=== PATIENT | male | born 1975 | race Caucasian/White ===

== ENCOUNTER 2019-04-18 01:22 | Emergency (ER) | payer MEDICAID ==
[~2019-04-18] VITALS: Ht 157 cm; Wt 75.0 kg
[~2019-04-18 01:22] MED LIST: DIVA125T2 PO
[2019-04-18] MEDS ORDERED: ASPIRIN 81 MG CHEW (CHILDREN'S ASA) PO ONE (01:45)
[2019-04-18] MEDS ORDERED: NITROGLYCERIN 0.4 MG SL TABS BTL 25'S SL PRN (01:45)
[2019-04-18 01:50] LABS: BASOPHILS % (AUTO) 0 % (0-10); EOSINOPHILS # (AUTO) 0.2 10^3/uL (0.0-0.3); EOSINOPHILS % (AUTO) 2 % (0-10); HEMATOCRIT 46 % (40-54); HEMOGLOBIN 15.5 G/DL (13.3-17.7); LYMPHOCYTES # (AUTO) 1.7 X 10^3 (1.0-4.0); LYMPHOCYTES % (AUTO) 18 % (12-44); MEAN CORPUSCULAR HEMOGLOBIN 30 PG (25-34); MEAN CORPUSCULAR HGB CONC 34 G/DL (32-36); MEAN CORPUSCULAR VOLUME 90 FL (80-99); MEAN PLATELET VOLUME 8.8 FL (7.4-10.4); MONOCYTES # (AUTO) 0.6 X 10^3 (0.0-1.0); MONOCYTES % (AUTO) 7 % (0-12); NEUTROPHILS % (AUTO) 73 % (42-75); PLATELET COUNT 287 10^3/uL (130-400); RED CELL DISTRIBUTION WIDTH 14.7 % (10.0-14.5); WHITE BLOOD COUNT 9.5 10^3/uL (4.3-11.0)
[2019-04-18] MEDS ORDERED: NS IV 1000 ML 1,000 ML IV ONE (01:56)
[2019-04-18 02:06] LABS: INR 0.9 (0.8-1.4); PROTHROMBIN TIME PATIENT 12.8 SEC (12.2-14.7)
[2019-04-18 02:09] LABS: BILIRUBIN,URINE NEGATIVE (NEGATIVE); CLARITY,URINE CLEAR; COLOR,URINE YELLOW; GLUCOSE, URINE (UA) NEGATIVE (NEGATIVE); KETONES,URINE NEGATIVE (NEGATIVE); LEUKOCYTE ESTERASE ,URINE NEGATIVE (NEGATIVE); NITRITE,URINE NEGATIVE (NEGATIVE); PH,URINE 6 (5-9); PROTEIN,URINE 2+ (NEGATIVE)
[2019-04-18 02:17] LABS: ALANINE AMINOTRANSFERASE 18 U/L (0-55); ALBUMIN 4.3 GM/DL (3.2-4.5); ALKALINE PHOSPHATASE 86 U/L (40-136); AMYLASE 67 U/L (25-125); BILIRUBIN,TOTAL 0.4 MG/DL (0.1-1.0); BUN/CREATININE RATIO 16; CALCIUM 9.8 MG/DL (8.5-10.1); CARBON DIOXIDE 17 MMOL/L (21-32); CHLORIDE 103 MMOL/L (98-107); CREATINE KINASE 90 U/L (30-200); CREATININE SERUM 1.51 MG/DL (0.60-1.30); GFR ESTIMATED 50; GLUCOSE 119 MG/DL (70-105); LIPASE 78 U/L (8-78); MAGNESIUM 1.8 MG/DL (1.6-2.4); SODIUM 134 MMOL/L (135-145); TOTAL PROTEIN 7.6 GM/DL (6.4-8.2)
[2019-04-18 02:22] LABS: BACTERIA,URINE NEGATIVE /HPF; SQUAMOUS EPITHELIAL CELL,UR 0-2 /HPF
[2019-04-18 02:24] LABS: AMPHETAMINE SCREEN, URINE NEGATIVE (NEGATIVE); BARBITURATE SCREEN URINE NEGATIVE (NEGATIVE); BENZODIAZEPINES SCREEN URINE NEGATIVE (NEGATIVE); CANNABINOID SCREEN, URINE NEGATIVE (NEGATIVE); COCAINE SCREEN URINE NEGATIVE (NEGATIVE); METHADONE STAT NEGATIVE (NEGATIVE); METHAMPHETAMINE SCREEN URINE S NEGATIVE (NEGATIVE); OPIATE SCREEN URINE NEGATIVE (NEGATIVE); OXYCODONE STAT NEGATIVE (NEGATIVE); PROPOXYPHENE STAT NEGATIVE (NEGATIVE); TRICYCLIC ANTIDEPRESSANTS SCRE NEGATIVE (NEGATIVE)
[2019-04-18 02:25] LABS: CREATINE KINASE MB 3.3 NG/ML (<6.6)
[2019-04-18] MEDS ORDERED: FUROSEMIDE 40 MG/4 ML INJ (LASIX) IVP ONE (02:45)
[2019-04-18] MEDS ORDERED: ENOXAPARIN 80 MG/0.8 ML (LOVENOX) SYR SC ONE (02:45)
[2019-04-18] MEDS ORDERED: fentaNYL INJECTION 100 MCG/2 ML AMP IVP STA (02:50)
[2019-04-18] MEDS ORDERED: meTOproloL SUCCINATE 50 MG (TOPROL XL) TAB PO SCH (03:00)
[2019-04-18 03:55] VITALS: BP 107/75
--- NOTE | 2019-04-18 03:56 | NUR ---
Pt report called to KARINA Loco @ [facility]. Upon arrival to room #3004.
--- NOTE | 2019-04-18 07:05 | Diagnostic Imaging Report ---
INDICATION: Chest pain. TECHNIQUE: Single view chest 2:13 AM. CORRELATION STUDY: None FINDINGS: Cardiac enlargement is present with a rounded configuration. Vasculature mildly prominent. The lungs are clear with no consolidating infiltrate. There is no significant effusion or pneumothorax. IMPRESSION: 1. Cardiac enlargement. Given configuration, possibility of underlying cardiomyopathy and/or pericardial effusion not excluded. If further assessment is desired, echocardiography would be recommended. Called to Dr. Christensen at 7:02 a.m. by cvb. Dictated by: Dictated on workstation # [id number]
--- NOTE | 2019-04-18 07:41 | ED Chest Pain ---
General Chief Complaint: Chest Pain Stated Complaint: CP Nursing Triage Note: Pt amb to room #7 with c/o lt sided chest discomfort radiating to lt axillary region. Pt reports discomfort is accompanied by SOA. Reports onset of symptoms throughout afternoon of 04/17/19. Pt reports to have allegedly experienced a "heart attack" @ [facility] in January 2019, but signed out AMA after prompting for surgical intervention. Nursing Sepsis Screen: No Definite Risk Source: patient History of Present Illness Date Seen by Provider: Apr 18, 2019 Time Seen by Provider: 01:28 Initial Comments PT ARRIVES VIA POV FROM HOME C/O MID CHEST PAIN ALL DAY--BEGAN AROUND NOON, WHILE SITTING RATES PAIN 6/10 NOW. NO RADIATION OF PAIN PAIN IS WORSE WITH ANY EXERTION, BUT DOES NOT GO AWAY C/O SHORTNESS OF BREATH AND COUGH WITH MINIMAL EXERTION NO SWELLING IN LEGS/ FEET OR PAIN IN CALVES NO PALPITATIONS NO SWEATS NO NAUSEA/VOMITING NO SYNCOPE HAS NOT TAKEN ANYTHING FOR PAIN STATES HE HAD AN WI ( ? NSTEMI ? )IN JANUARY AND WENT TO [place] PT STATES HE LEFT AMA, AND REFUSED TO HAVE CATH OR SURGERY "BECAUSE I DIDN'T HAVE ANY FAMILY THERE" PT HAS NOT FOLLOWED UP WITH ANYONE SINCE THEN, EITHER. 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 PCP: ADILIA Allergies and Home Medications Allergies Coded Allergies: No Known Drug Allergies (Unverified , 04/18/19) Patient Home Medication List Home Medication List Reviewed: No (PT IS NOT TAKING ANY MEDICATIONS) Review of Systems Review of Systems Constitutional: no symptoms reported; No diaphoresis, No dizziness EENTM: No Symptoms Reported Respiratory: See HPI, Cough, Orthopnea, Shortness of Air, SOA With Exertion Cardiovascular: See HPI, Chest Pain; Denies Edema, Denies Irregular Heart Rate, Denies Lightheadedness, Denies Palpitations, Denies Syncope Gastrointestinal: No Symptoms Reported; Denies Abdominal Pain, Denies Nausea, Denies Vomiting Genitourinary: No Symptoms Reported Musculoskeletal: no symptoms reported; No back pain Skin: no symptoms reported Psychiatric/Neurological: No Symptoms Reported, Other (HX OF SEIZURES--NO MEDICATIONS ( DEPAKOTE ) FOR 6 MONTHS) Endocrine: No Symptoms Reported Hematologic/Lymphatic: No Symptoms Reported Past Avfuwul-Wxbgmg-Pyqiif Hx Patient Social History Alcohol Use: Past History (HISTORY OF ABUSE--CLAIMS NONE FOR 12 YEARS, PER PT ON 04/18/19) Recreational Drug Use: Yes (HX OF METH, THC. DENIES IV USE. CLAIMS "NO USE FOR YEARS" PER PT 04/18/19) Drug of Choice: HX: METHAMPHETAMINES, THC. DENIES IV USE OR USE "FOR YEARS" PER PT 04/18/19 Smoking Status: Current Everyday Smoker (1 PPD) Type Used: Cigarettes (1 PPD) 2nd Hand Smoke Exposure: Yes Recent Foreign Travel: No Contact w/Someone Who Travel: No Recent Infectious Disease Expo: No Immunizations Up To Date Tetanus Booster (TDap): More than 5yrs Past Medical History Surgeries: Yes Appendectomy Respiratory: No Cardiac: Yes (STATES HE HAD WI 01/2019--SEEN AT [place], THEN REFUSED CARDIAC CATH OR SURGERY AND LEFT AMA. DID NOT FOLLOW UP WITH ANYONE. ) Heart Attack Neurological: Yes (NO SEIZURE MEDICATIONS ( DEPAKOTE ) FOR 6 MONTHS, PER PT ON 04/18/19) Seizure Disorder Genitourinary: No Gastrointestinal: No Musculoskeletal: No Endocrine: No HEENT: Yes (POOR DENTITION) Cancer: No Psychosocial: No (POLYSUBSTANCE ABUSE HISTORY) Integumentary: No Blood Disorders: No Family Medical History No Pertinent Family Hx Physical Exam Vital Signs Vital Signs - First Documented 04/18/19 01:26 Temp 37.0 Pulse 121 Resp 26 B/P (MAP) 112/87 (95) Pulse Ox 100 O2 Delivery Room Air Capillary Refill : Less Than 3 Seconds Height, Weight, BMI Height: 5'" Weight: 140lbs. oz. 63.593156ka; 30.00 BMI Method:Stated General Appearance: No Apparent Distress, WD/WN, Other (UNKEMPT, REEKS OF CIGARETTES, SOMEWHAT ANXIOUS. ) Neck: Full Range of Motion, Normal Inspection, Non Tender, Supple; No Carotid Bruit, No JVD Respiratory: Chest Non Tender, Normal Breath Sounds, No Accessory Muscle Use, No Respiratory Distress Cardiovascular: No Edema, No JVD, No Murmur, Normal Peripheral Pulses, Tachycardia (120'S) Gastrointestinal: Normal Bowel Sounds, No Organomegaly, No Pulsatile Mass, Non Tender, Soft Extremity: Normal Capillary Refill, Normal Inspection, Normal Range of Motion, Non Tender, No Calf Tenderness, No Pedal Edema Neurologic/Psychiatric: Alert, Oriented x3, No Motor/Sensory Deficits, preventive medicine officer II- XII Norm as Tested Skin: Normal Color, Warm/Dry, Tattoos/Piercings (MULTPLE TATTOOS) Progress/Results/Core Measures Results/Orders Lab Results Laboratory Tests Test 04/18/19 01:40 04/18/19 02:00 Range/Units White Blood Count 9.5 4.3-11.0 10^3/uL Red Blood Count 5.12 4.35-5.85 10^6/uL Hemoglobin 15.5 13.3-17.7 G/DL Hematocrit 46 40-54 % Mean Corpuscular Volume 90 80-99 FL Mean Corpuscular Hemoglobin 30 25-34 PG Mean Corpuscular Hemoglobin Concent 34 32-36 G/DL Red Cell Distribution Width 14.7 H 10.0-14.5 % Platelet Count 287 130-400 10^3/uL Mean Platelet Volume 8.8 7.4-10.4 FL Neutrophils (%) (Auto) 73 42-75 % Lymphocytes (%) (Auto) 18 12-44 % Monocytes (%) (Auto) 7 0-12 % Eosinophils (%) (Auto) 2 0-10 % Basophils (%) (Auto) 0 0-10 % Neutrophils # (Auto) 7.0 1.8-7.8 X 10^3 Lymphocytes # (Auto) 1.7 1.0-4.0 X 10^3 Monocytes # (Auto) 0.6 0.0-1.0 X 10^3 Eosinophils # (Auto) 0.2 0.0-0.3 10^3/uL Basophils # (Auto) 0.0 0.0-0.1 10^3/uL Prothrombin Time 12.8 12.2-14.7 SEC INR Comment 0.9 0.8-1.4 Activated Partial Thromboplast Time 28 24-35 SEC Sodium Level 134 L 135-145 MMOL/L Potassium Level 5.0 3.6-5.0 MMOL/L Chloride Level 103 98-107 MMOL/L Carbon Dioxide Level 17 L 21-32 MMOL/L Anion Gap 14 5-14 MMOL/L Blood Urea Nitrogen 24 H 7-18 MG/DL Creatinine 1.51 H 0.60-1.30 MG/DL Estimat Glomerular Filtration Rate 50 BUN/Creatinine Ratio 16 Glucose Level 119 H 70-105 MG/DL Calcium Level 9.8 8.5-10.1 MG/DL Corrected Calcium 9.6 8.5-10.1 MG/DL Magnesium Level 1.8 1.6-2.4 MG/DL Total Bilirubin 0.4 0.1-1.0 MG/DL Aspartate Amino Transf (AST/SGOT) 16 5-34 U/L Alanine Aminotransferase (ALT/SGPT) 18 0-55 U/L Alkaline Phosphatase 86 40-136 U/L Total Creatine Kinase 90 30-200 U/L Creatine Kinase MB 3.3 <6.6 NG/ML Myoglobin 57.4 10.0-92.0 NG/ML Troponin I 0.123 H <0.028 NG/ML B-Type Natriuretic Peptide 1387.5 H <100.0 PG/ML Total Protein 7.6 6.4-8.2 GM/DL Albumin 4.3 3.2-4.5 GM/DL Amylase Level 67 25-125 U/L Lipase 78 8-78 U/L Serum Alcohol < 10 <10 MG/DL Urine Color YELLOW Urine Clarity CLEAR Urine pH 6 5-9 Urine Specific [place] 1.010 L 1.016-1.022 Urine Protein 2+ H NEGATIVE Urine Glucose (UA) NEGATIVE NEGATIVE Urine Ketones NEGATIVE NEGATIVE Urine Nitrite NEGATIVE NEGATIVE Urine Bilirubin NEGATIVE NEGATIVE Urine Urobilinogen NORMAL NORMAL MG/DL Urine Leukocyte Esterase NEGATIVE NEGATIVE Urine RBC (Auto) NEGATIVE NEGATIVE Urine RBC NONE /HPF Urine WBC NONE /HPF Urine Squamous Epithelial Cells 0-2 /HPF Urine Crystals NONE /LPF Urine Bacteria NEGATIVE /HPF Urine Casts NONE /LPF Urine Mucus NEGATIVE /LPF Urine Culture Indicated NO Urine Opiates Screen NEGATIVE NEGATIVE Urine Oxycodone Screen NEGATIVE NEGATIVE Urine Methadone Screen NEGATIVE NEGATIVE Urine Propoxyphene Screen NEGATIVE NEGATIVE Urine Barbiturates Screen NEGATIVE NEGATIVE Ur Tricyclic Antidepressants Screen NEGATIVE NEGATIVE Urine Phencyclidine Screen NEGATIVE NEGATIVE Urine Amphetamines Screen NEGATIVE NEGATIVE Urine Methamphetamines Screen NEGATIVE NEGATIVE Urine Benzodiazepines Screen NEGATIVE NEGATIVE Urine Cocaine Screen NEGATIVE NEGATIVE Urine Cannabinoids Screen NEGATIVE NEGATIVE My Orders Orders - OSCAR LOYA DO Ed Iv/Invasive Line Start (04/18/19 01:34) Ekg Tracing (04/18/19:34) O2 (04/18/19 01:34) Monitor-Rhythm Ecg Trace Only (04/18/19:34) Cbc With Automated Diff (04/18/19:34) Magnesium (04/18/19:34) Chest 1 View, Ap/Pa Only (04/18/19 01:34) Cardiac Profile 1 (04/18/19:34) Comprehensive Metabolic Panel (04/18/19:34) Myoglobin Serum (04/18/19:34) Protime With Inr (04/18/19:34) Partial Thromboplastin Time (04/18/19:34) O2 (04/18/19 01:34) Ed Iv/Invasive Line Start (04/18/19:34) Creatine Kinase (04/18/19:34) Creatine Kinase Mb (04/18/19:34) Lipase (04/18/19:34) Amylase (04/18/19:34) BNP (04/18/19:34) Nitroglycerin 0.4 Mg Btl 25's (Nitrostat (04/18/19 01:45) Aspirin Chewable Tablet (Baby Aspirin Ch (04/18/19 01:45) Drug Screen Stat (Urine) (04/18/19:34) Ua Culture If Indicated (04/18/19:34) Alcohol (04/18/19 01:40) Ed Iv/Invasive Line Start (04/18/19 01:56) Ns Iv 1000 Ml (Sodium Chloride 0.9%) (04/18/19 01:56) Furosemide Injection (Lasix Injection) (04/18/19 02:45) Enoxaparin Injection (Lovenox Injection) (04/18/19 02:45) Metoprolol Succinate (Xl) Tab (Toprol Xl (04/18/19 03:00) Fentanyl Injection (Sublimaze Injection (04/18/19 02:50) Medications Given in ED Current Medications Medications Dose Ordered Sig/Sarah Route Start Time Stop Time Status Last Admin Dose Admin Aspirin 324 mg ONCE ONCE PO 04/18/19 01:45 04/18/19 01:46 DC 04/18/19 01:54 324 MG Enoxaparin Sodium 80 mg ONCE ONCE SC 04/18/19 02:45 04/18/19 02:46 DC 04/18/19 03:11 80 MG Furosemide 80 mg ONCE ONCE IVP 04/18/19 02:45 04/18/19 02:46 DC 04/18/19 03:11 80 MG Sodium Chloride 1,000 ml @ 0 mls/hr Q0M ONCE IV 04/18/19 01:56 04/18/19 01:57 DC 04/18/19 02:05 0 MLS/HR Vital Signs/I&O 04/18/19 04/18/19 04/18/19 01:26 01:26 03:55 Temp 37.0 37.0 Pulse 121 118 Resp 26 20 B/P (MAP) 112/87 (95) 107/75 (95) Pulse Ox 100 99 O2 Delivery Room Air Room Air Room Air Blood Pressure Mean: 95 Progress Progress Note : Progress Note MODERATE RELIEF WITH NTG. COMPLETE RELIEF WITH MORPHINE NO DETERIORATION IN PT'S CONDITION DURING ER STAY Initial ECG Impression Date: Apr 18, 2019 Initial ECG Impression Time: 01:27 Initial ECG Rate: 119 Initial ECG Rhythm: S.Tach (LBBB, BI-ATRIAL ) Initial ECG Impression: Nonspecific Changes Diagnostic Imaging Comments CXR--MODERATE CHF, PENDING RADIOLOGIST Reviewed: Reviewed by In Departure Communication (Admissions) 0250--CALLED [facility], PT PREFERENCE/ REQUESTS TO GO THERE, PAGING HOSPITALIST 0259--SPOKE WITH DR. MENON, ACCEPTS PT FOR ADMIT/TRANSFER Impression Primary Impression: NSTEMI (non-ST elevated myocardial infarction) Additional Impression: CHF (congestive heart failure) Disposition: 02 XFER SHT-TRM HOSP Condition: Improved Transfer Transfer Reason: Patient preference Time Spoke to Accepting Phy: 02:59 Transfer Facility: [facility] Method of Transfer: EMS Departure-Patient Inst. Referrals: [facility] (PCP) Primary Care Physician OSCAR LOYA DO Apr 18, 2019 07:41
[2019-05-12] MEDS ORDERED: FURO20TA4 PO (17:50)
[2019-05-12] MEDS ORDERED: MIDO5TAB3 PO (17:50)
[2019-05-12] MEDS ORDERED: LISI2.5T PO (17:50)
[2019-05-12] MEDS ORDERED: ATOR40TA70 PO (17:50)
[2019-05-12] MEDS ORDERED: METO-333 PO (17:57)
[2019-05-13] MEDS ORDERED: GUAI100L13 PO (09:16)
[2019-05-13] MEDS ORDERED: ASPI-999 PO (13:01)
[2019-05-15] MEDS ORDERED: MAGN400T8 PO (21:04)
== END 2019-04-18 03:55 | disposition short-term general hospital (02) ==
LOC: EDUNIT# 01:22 → ER 01:23
DX: I21.4 Non-ST elevation (NSTEMI) myocardial infarction (principal); I50.9 Heart failure, unspecified; G40.909 Epilepsy, unspecified, not intractable, without status epilepticus; F17.210 Nicotine dependence, cigarettes, uncomplicated; Z90.49 Acquired absence of other specified parts of digestive tract
CPT/HCPCS: 36415; 71045; 80053; 80306; 80320; 81000; 82150; 82550; 82553; 83690; 83735; 83874; 83880; 84484; 85025; 85610; 85730; 93005; 93041; 96372; 96374; 96375

== ENCOUNTER 2019-05-12 12:44 | Observation (INO) | payer MEDICAID ==
[~2019-05-12] VITALS: Ht 157.4 cm; Wt 71.6 kg
[2019-05-12] VITALS (8 sets, daily range): BP systolic 88–104; BP diastolic 51–83
[2019-05-12] MEDS ORDERED: ASPIRIN 81 MG CHEW (CHILDREN'S ASA) ONE (13:06)
[2019-05-12] MEDS ORDERED: ASPIRIN 81 MG CHEW (CHILDREN'S ASA) PO ONE (13:15)
[2019-05-12 13:27] LABS: BASOPHILS % (AUTO) 0 % (0-10); EOSINOPHILS # (AUTO) 0.1 10^3/uL (0.0-0.3); EOSINOPHILS % (AUTO) 1 % (0-10); HEMATOCRIT 43 % (40-54); HEMOGLOBIN 14.2 G/DL (13.3-17.7); LYMPHOCYTES # (AUTO) 0.8 X 10^3 (1.0-4.0); LYMPHOCYTES % (AUTO) 15 % (12-44); MEAN CORPUSCULAR HEMOGLOBIN 30 PG (25-34); MEAN CORPUSCULAR HGB CONC 33 G/DL (32-36); MEAN CORPUSCULAR VOLUME 90 FL (80-99); MONOCYTES # (AUTO) 1.1 X 10^3 (0.0-1.0); MONOCYTES % (AUTO) 22 % (0-12); NEUTROPHILS # (AUTO) 3.2 X 10^3 (1.8-7.8); NEUTROPHILS % (AUTO) 62 % (42-75); PLATELET COUNT 335 10^3/uL (130-400); RED CELL DISTRIBUTION WIDTH 15.5 % (10.0-14.5); WHITE BLOOD COUNT 5.2 10^3/uL (4.3-11.0)
[2019-05-12] MEDS ORDERED: NS IV 1000 ML 1,000 ML IV SCH ×2 (13:30→15:15)
[2019-05-12 13:33] LABS: INR 0.9 (0.8-1.4)
--- NOTE | 2019-05-12 13:34 | Diagnostic Imaging Report ---
EXAM: CHEST 1 VIEW, AP/PA ONLY INDICATION: Chest pain. COMPARISON: 04/18/2019. FINDINGS: Low lung volumes accentuate the cardiomegaly. Mild atelectasis or infiltrate in the medial right lung base. No pleural effusion or pneumothorax. IMPRESSION: Low lung volumes accentuate the cardiomegaly which is likely stable. There is also persistent atelectasis or infiltrate in the medial right lung base. Dictated by: Dictated on workstation # [id number]
[2019-05-12 13:41] LABS: ALBUMIN 4.4 GM/DL (3.2-4.5); BILIRUBIN,TOTAL 0.3 MG/DL (0.1-1.0); CALCIUM 9.2 MG/DL (8.5-10.1); CREATININE SERUM 1.69 MG/DL (0.60-1.30); MAGNESIUM 2.2 MG/DL (1.6-2.4); POTASSIUM 4.6 MMOL/L (3.6-5.0); TOTAL PROTEIN 7.8 GM/DL (6.4-8.2)
[2019-05-12 13:42] LABS: BILIRUBIN,URINE NEGATIVE (NEGATIVE); CLARITY,URINE CLEAR; COLOR,URINE YELLOW; GLUCOSE, URINE (UA) NEGATIVE (NEGATIVE); KETONES,URINE NEGATIVE (NEGATIVE); LEUKOCYTE ESTERASE ,URINE NEGATIVE (NEGATIVE); NITRITE,URINE NEGATIVE (NEGATIVE); PH,URINE 5.5 (5-9); PROTEIN,URINE 2+ (NEGATIVE)
--- NOTE | 2019-05-12 13:46 | ED Cardiac General ---
History of Present Illness General Chief Complaint: Chest Pain Stated Complaint: CP Nursing Triage Note: Pt c/o fever, vomiting, cough, body aches, and chest pain that began yesterday. Pt reports symptoms have worsened today. Pt afebrile at time of assessment. Pt report recently "coding at [facility]." Source: patient Exam Limitations: no limitations History of Present Illness Date Seen by Provider: May 12, 2019 Time Seen by Provider: 15:00 Initial Comments To ER with reports of left-sided chest pain worse with movement. This began last night and has been constant since then. No fever no chills no cough. He has congestive heart failure with ejection fraction of 15% he states. He is currently wearing a life vest prescribed by Dr. Gomes matrix drier tender in [place]. However he cannot afford keep going to [place] and would like to establish with cardiology here in [place] since they live in [place]. He states that he had a myocardial infarction at [facility] April 17, intubated on the , had a heart catheter subsequently and states there was no blockage, no stents were placed, he is scheduled to have AICD placement with Dr. Gomes the future. Previous history of methamphetamine use. Timing/Duration: constant Severity: moderate Activities at Onset: none Prior CP/Workup: cardiac cath NTG SL KEYPUNCHER: No ASA po KEYPUNCHER: No Associated Systoms: Chest Pain Allergies and Home Medications Allergies Coded Allergies: No Known Drug Allergies (Unverified , 04/18/19) Patient Home Medication List Home Medication List Reviewed: Yes Review of Systems Review of Systems Constitutional: see HPI EENTM: No Symptoms Reported Respiratory: See HPI; Denies Orthopnea Cardiovascular: See HPI, Chest Pain Gastrointestinal: No Symptoms Reported Genitourinary: No Symptoms Reported Musculoskeletal: no symptoms reported Skin: no symptoms reported Psychiatric/Neurological: No Symptoms Reported Endocrine: No Symptoms Reported Past Fajaljw-Uilxie-Oogfbe Hx Patient Social History Alcohol Use: Past History Recreational Drug Use: No Drug of Choice: HX: METHAMPHETAMINES, THC. DENIES IV USE OR USE "FOR YEARS" PER PT 05/12/19 Smoking Status: Former Smoker Type Used: Cigarettes 2nd Hand Smoke Exposure: Yes Recent Foreign Travel: No Contact w/Someone Who Travel: No Recent Infectious Disease Expo: No Recent Hopitalizations: Yes (04/18 "coded at [facility]") Immunizations Up To Date Tetanus Booster (TDap): More than 5yrs Past Medical History Surgeries: Yes Appendectomy Respiratory: No Cardiac: Yes Heart Attack Neurological: Yes (NO SEIZURE MEDICATIONS ( DEPAKOTE ) FOR 6 MONTHS, PER PT ON 04/18/19) Seizure Disorder Genitourinary: No Gastrointestinal: No Musculoskeletal: No Endocrine: No HEENT: Yes (POOR DENTITION) Cancer: No Psychosocial: No (POLYSUBSTANCE ABUSE HISTORY) Integumentary: No Blood Disorders: No Family Medical History No Pertinent Family Hx Physical Exam Vital Signs Vital Signs - First Documented 05/12/19 12:44 Temp 36.8 Pulse 92 Resp 14 B/P (MAP) 102/67 (79) Pulse Ox 98 O2 Delivery Room Air Capillary Refill : Less Than 3 Seconds Height, Weight, BMI Height: 5'" Weight: 140lbs. oz. 63.412982zd; 28.00 BMI Method:Stated General Appearance: No Apparent Distress, WD/WN, Other (alert and oriented mentating well, no distress) HEENT: PERRL/EOMI, Normal ENT Inspection Neck: Full Range of Motion, Normal Inspection Respiratory: No Accessory Muscle Use, No Respiratory Distress Cardiovascular: Regular Rate, Rhythm, Normal Peripheral Pulses Gastrointestinal: Normal Bowel Sounds, Non Tender, Soft Extremity: Normal Capillary Refill, Normal Inspection Neurologic/Psychiatric: Alert, Oriented x3 Skin: Normal Color, Warm/Dry Focused Exam Lactate Level 05/12/19 13:15: Lactic Acid Level 2.18*H Lactic Acid Level Laboratory Tests Test 05/12/19 13:15 Lactic Acid Level 2.18 MMOL/L (0.50-2.00) *H Progress/Results/Core Measures Results/Orders Lab Results Laboratory Tests Test 05/12/19 12:55 05/12/19 13:15 05/12/19 13:30 Range/Units White Blood Count 5.2 4.3-11.0 10^3/uL Red Blood Count 4.76 4.35-5.85 10^6/uL Hemoglobin 14.2 13.3-17.7 G/DL Hematocrit 43 40-54 % Mean Corpuscular Volume 90 80-99 FL Mean Corpuscular Hemoglobin 30 25-34 PG Mean Corpuscular Hemoglobin Concent 33 32-36 G/DL Red Cell Distribution Width 15.5 H 10.0-14.5 % Platelet Count 335 130-400 10^3/uL Mean Platelet Volume 9.0 7.4-10.4 FL Neutrophils (%) (Auto) 62 42-75 % Lymphocytes (%) (Auto) 15 12-44 % Monocytes (%) (Auto) 22 H 0-12 % Eosinophils (%) (Auto) 1 0-10 % Basophils (%) (Auto) 0 0-10 % Neutrophils # (Auto) 3.2 1.8-7.8 X 10^3 Lymphocytes # (Auto) 0.8 L 1.0-4.0 X 10^3 Monocytes # (Auto) 1.1 H 0.0-1.0 X 10^3 Eosinophils # (Auto) 0.1 0.0-0.3 10^3/uL Basophils # (Auto) 0.0 0.0-0.1 10^3/uL Neutrophils % (Manual) 57 % Lymphocytes % (Manual) 14 % Monocytes % (Manual) 18 % Eosinophils % (Manual) 1 % Band Neutrophils 10 % Helmet Cells SLIGHT Prothrombin Time 13.0 12.2-14.7 SEC INR Comment 0.9 0.8-1.4 Activated Partial Thromboplast Time 29 24-35 SEC Sodium Level 133 L 135-145 MMOL/L Potassium Level 4.6 3.6-5.0 MMOL/L Chloride Level 102 98-107 MMOL/L Carbon Dioxide Level 20 L 21-32 MMOL/L Anion Gap 11 5-14 MMOL/L Blood Urea Nitrogen 23 H 7-18 MG/DL Creatinine 1.69 H 0.60-1.30 MG/DL Estimat Glomerular Filtration Rate 44 BUN/Creatinine Ratio 14 Glucose Level 106 H 70-105 MG/DL Calcium Level 9.2 8.5-10.1 MG/DL Corrected Calcium 8.9 8.5-10.1 MG/DL Magnesium Level 2.2 1.6-2.4 MG/DL Total Bilirubin 0.3 0.1-1.0 MG/DL Aspartate Amino Transf (AST/SGOT) 29 5-34 U/L Alanine Aminotransferase (ALT/SGPT) 22 0-55 U/L Alkaline Phosphatase 81 40-136 U/L Myoglobin 34.3 10.0-92.0 NG/ML Troponin I 0.052 H <0.028 NG/ML B-Type Natriuretic Peptide 940.7 H <100.0 PG/ML Total Protein 7.8 6.4-8.2 GM/DL Albumin 4.4 3.2-4.5 GM/DL Lactic Acid Level 2.18 *H 0.50-2.00 MMOL/L Urine Color YELLOW Urine Clarity CLEAR Urine pH 5.5 5-9 Urine Specific [place] >=1.030 1.016-1.022 Urine Protein 2+ H NEGATIVE Urine Glucose (UA) NEGATIVE NEGATIVE Urine Ketones NEGATIVE NEGATIVE Urine Nitrite NEGATIVE NEGATIVE Urine Bilirubin NEGATIVE NEGATIVE Urine Urobilinogen 0.2 < = 1.0 MG/DL Urine Leukocyte Esterase NEGATIVE NEGATIVE Urine RBC (Auto) NEGATIVE NEGATIVE Urine RBC NONE /HPF Urine WBC 0-2 /HPF Urine Squamous Epithelial Cells RARE /HPF Urine Crystals NONE /LPF Urine Bacteria NEGATIVE /HPF Urine Casts NONE /LPF Urine Mucus NEGATIVE /LPF Urine Culture Indicated NO Urine Opiates Screen NEGATIVE NEGATIVE Urine Oxycodone Screen NEGATIVE NEGATIVE Urine Methadone Screen NEGATIVE NEGATIVE Urine Propoxyphene Screen NEGATIVE NEGATIVE Urine Barbiturates Screen NEGATIVE NEGATIVE Ur Tricyclic Antidepressants Screen NEGATIVE NEGATIVE Urine Phencyclidine Screen NEGATIVE NEGATIVE Urine Amphetamines Screen NEGATIVE NEGATIVE Urine Methamphetamines Screen NEGATIVE NEGATIVE Urine Benzodiazepines Screen NEGATIVE NEGATIVE Urine Cocaine Screen NEGATIVE NEGATIVE Urine Cannabinoids Screen POSITIVE H NEGATIVE Micro Results Microbiology 05/12/19 Influenza Types A,B Antigen (VICTORINO) - Final, Complete My Orders Orders - MARYCARMEN MANCERA APRN Influenza A And B Antigens (05/12/19 13:09) Blood Culture (05/12/19 13:09) Lactic Acid Analyzer (05/12/19 13:09) Ua Culture If Indicated (05/12/19 13:09) Ekg Tracing (05/12/19 13:09) Ns Iv 1000 Ml (Sodium Chloride 0.9%) (05/12/19 13:30) Drug Screen Stat (Urine) (05/12/19 14:21) Morphine Injection (Morphine Injection (05/12/19 14:56) BNP (05/12/19 14:59) Fentanyl Injection (Sublimaze Injection (05/12/19 15:00) Ns Iv 1000 Ml (Sodium Chloride 0.9%) (05/12/19 15:15) Echo W Doppler/Color Flow (05/12/19 15:30) Medications Given in ED Current Medications Medications Dose Ordered Sig/Sarah Route Start Time Stop Time Status Last Admin Dose Admin Aspirin 324 mg ONCE ONCE PO 05/12/19 13:15 05/12/19 13:16 DC 05/12/19 13:12 324 MG Fentanyl Citrate 50 mcg ONCE ONCE IVP 05/12/19 15:00 05/12/19 15:01 DC 05/12/19 15:04 50 MCG Vital Signs/I&O 05/12/19 05/12/19 12:44 12:44 Temp 36.8 Pulse 92 Resp 14 B/P (MAP) 102/67 (79) Pulse Ox 98 O2 Delivery Room Air Room Air Blood Pressure Mean: 79 POS Progress Progress Note : Progress Note NAME: IVÁN JEFFERY [facility] REC#: [id number] PT STATUS: REG ER : 1975 PHYSICIAN: VIDYA BARON MD ADMIT DATE: 05/12/19/ER Draft Date of Exam:05/12/19 CHEST 1 VIEW, AP/PA ONLY EXAM: CHEST 1 VIEW, AP/PA ONLY INDICATION: Chest pain. COMPARISON: 04/18/2019. FINDINGS: Low lung volumes accentuate the cardiomegaly. Mild atelectasis or infiltrate in the medial right lung base. No pleural effusion or pneumothorax. IMPRESSION: Low lung volumes accentuate the cardiomegaly which is likely stable. There is also persistent atelectasis or infiltrate in the medial right lung base. Dictated on workstation # [id number] Dict: 05/12/19 1330 Trans: 05/12/19 1333 [facility] [id number] Interpreted by: FOX COOK MD Electronically signed by: Departure Communication (Admissions) Time/Spoke to Admitting Phy: 16:[address] Wood, agrees to admit. Spoke with Dr. Barragan, who agrees to consult. I did offer the patient to be transferred back to [place] to his primary matrix drier tender, states he would like to establish care with a matrix drier tender here and stay here. Wearing a life vest. Blood pressure is 92/66, heart rate 85 sinus left bundle branch block. Complaints of chest pain rated a 5-6 out of 10. Fentanyl ordered since his blood pressure will not tolerate nitroglycerin. 500 mL fluid bolus given. States that he is on Lasix at home and has been having some cramps in his legs. He would like to stay here rather than be transferred back to [facility], he would like to establish care with one of our cardiologists. Impression Primary Impression: CHF (congestive heart failure) Qualified Codes: I50.20 - Unspecified systolic (congestive) heart failure Disposition: ADMITTED INPATIENT Condition: Stable Admissions Decision to Admit Reason: Admit from ER (General) Decision to Admit/Date: May 12, 2019 Time/Decision to Admit Time: 15:04 Departure-Patient Inst. Referrals: [facility] (PCP/Family) Primary Care Physician MARYCARMEN MANCERA APRN May 12, 2019 13:46 POS
[2019-05-12 13:49] LABS: BACTERIA,URINE NEGATIVE /HPF; SQUAMOUS EPITHELIAL CELL,UR RARE /HPF; WBC,URINE 0-2 /HPF
[2019-05-12 14:13] LABS: BAND NEUTROPHILS 10 %; EOSINOPHILS % (MANUAL) 1 %; LYMPHOCYTES % (MANUAL) 14 %; MONOCYTES % (MANUAL) 18 %; NEUTROPHILS % (MANUAL) 57 %
[2019-05-12 14:14] LABS: HELMET/BITE CELLS SLIGHT
--- NOTE | 2019-05-12 14:34 | NUR ---
Pt resting in bed. Pt still afebrile at 36.1. Pt denies needs at this time.
[2019-05-12 14:47] LABS: AMPHETAMINE SCREEN, URINE NEGATIVE (NEGATIVE); BARBITURATE SCREEN URINE NEGATIVE (NEGATIVE); BENZODIAZEPINES SCREEN URINE NEGATIVE (NEGATIVE); CANNABINOID SCREEN, URINE POSITIVE (NEGATIVE); COCAINE SCREEN URINE NEGATIVE (NEGATIVE); METHADONE STAT NEGATIVE (NEGATIVE); METHAMPHETAMINE SCREEN URINE S NEGATIVE (NEGATIVE); OPIATE SCREEN URINE NEGATIVE (NEGATIVE); OXYCODONE STAT NEGATIVE (NEGATIVE); PROPOXYPHENE STAT NEGATIVE (NEGATIVE); TRICYCLIC ANTIDEPRESSANTS SCRE NEGATIVE (NEGATIVE)
[2019-05-12] MEDS ORDERED: morphine INJ 10 MG/ML 1ML (SYR OR VIAL) IVP STA (14:56)
[2019-05-12] MEDS ORDERED: fentaNYL INJECTION 100 MCG/2 ML AMP IVP ONE (15:00)
[2019-05-12] MEDS ORDERED: FURO20TA4 PO ×2 (17:50)
[2019-05-12] MEDS ORDERED: LISI2.5T PO ×2 (17:50)
[2019-05-12] MEDS ORDERED: ATOR40TA70 PO ×2 (17:50)
[2019-05-12] MEDS ORDERED: METO5AMP2 IV (17:50)
[2019-05-12] MEDS ORDERED: MIDO5TAB PO ×2 (17:50)
[2019-05-12] MEDS ORDERED: METO-333 PO ×2 (17:57)
[2019-05-12] MEDS ORDERED: fentaNYL INJECTION 100 MCG/2 ML AMP IV PRN (18:15)
[2019-05-12] MEDS ORDERED: PATIENT MAY USE OWN MEDS, ALL MC SCH (18:15)
[2019-05-12] MEDS ORDERED: CATHETER FLUSH 10 ML SYR IV PRN (18:15)
[2019-05-12] MEDS ORDERED: FLU QUADRIvalent (5+ YOA) 2019-2020 (AFLURIA) 0.5 ML IM ONE (19:15)
--- NOTE | 2019-05-12 19:24 | NUR ---
dr roman contacted due to pt bp being in 90s/50s range. dr roman gave orders to call him back if systolic drops into 80s.
[2019-05-12] MEDS ORDERED: ENOXAPARIN 40 MG/0.4 ML (LOVENOX) SYR SC SCH (21:00)
[2019-05-12] MEDS: meTOprolol TARTRATE 25 MG (LOPRESSOR) TABLET PO SCH (21:37)
[2019-05-12] MEDS: CATHETER FLUSH 10 ML SYR IV SCH (23:09)
[2019-05-13 00:05] VITALS: BP 90/64
[2019-05-13 04:00] VITALS: BP 91/57
[2019-05-13] MEDS: CATHETER FLUSH 10 ML SYR IV SCH (05:11)
[2019-05-13 06:41] LABS: CHOLESTEROL 134 MG/DL (< 200); HDL CHOLESTEROL 31 MG/DL (40-60); TRIGLYCERIDES 185 MG/DL (<150); VLDL CHOLESTEROL 37 MG/DL (5-40)
[2019-05-13] MEDS ORDERED: ONDANSETRON 4 MG/2 ML (SDV) Z0FRAN IVP PRN (07:00)
[2019-05-13 08:00] VITALS: BP 92/55
[2019-05-13] MEDS: meTOprolol TARTRATE 25 MG (LOPRESSOR) TABLET PO SCH ×2 (08:26→10:03)
--- NOTE | 2019-05-13 08:47 | Consultation-Cardiology ---
HPI-Cardiology Cardiology Consultation: Date of Consultation 05/13/19 Date of Admission Attending Physician Flor Wood MD Admitting Physician [place] Consulting Physician Josiah BARRAGAN MD HPI: Time Seen by a Provider: 09:00 Chief Complaint: Chest discomfort. This is a 44-year-old gentleman who followed with a diploma dental assistant in [place] but wants to transition his cardiology and electrophysiology care to [facility]. He has history of severe cardiomyopathy with an EF of 15 percent. He has been wearing a LifeVest for primary prevention of sudden cardiac since 04/30/2019. According to the patient he had an angiogram in [place] on 04/17/2019 which did not show any significant CAD. We have requested the catheter report. He presented with left-sided chest pain. Chest pain has been occurring for a few hours and is constant. No radiation. Moderate intensity. Mild shortness of breath. No other cardiac symptoms. No history of syncope or near syncope. Denies active smoking. Denies use of street drugs. Denies family history of premature CAD. Review of Systems-Cardiology Review of Systems Constitutional: As described under HPI; No As described under HPI, No no symptoms reported, No chills, No fever, No lightheadedness Eyes: No As described under HPI, No no symptoms reported, No blindness, No blurred vision, No contact lenses, No drainage, No decreased acuity, No foreign body sensation, No pain, No vision change Ears/Nose/Throat: No As described under HPI, No no symptoms reported, No chronic hearing loss, No ear discharge, No ear pain, No nasal drainage, No ulcerations Respiratory: No no symptoms reported; As described under HPI; No As described under HPI, No cough, No orthopnea, No shortness of breath, No SOB with excertion Cardiovascular: No no symptoms reported; As described under HPI; No As desc ribed under HPI; chest pain; No edema, No irregular heart rate, No lightheadedness, No palpitations Gastrointestinal: No no symptoms reported, No As described under HPI, No abdomen distended, No abdominal pain, No blood streaked bowels, No constipation, No diarrhea, No nausea, No vomiting, No stool coloration changes Genitourinary: No As described under HPI, No burning, No dysuria, No discharge, No frequency, No flank pain, No hematuria, No urgency Skin: No rash, No skin related problems, No ulcerations Psychiatric/Neurological: No anxiety, No depression, No seizure, No focal weakness, No syncope Hematologic: No bleeding abnormalities FYU-Kbiwsi-Srepuv Hx Patient Social History Alcohol Use: Past History Recreational Drug Use: No Drug of Choice: HX: METHAMPHETAMINES, THC. DENIES IV USE OR USE "FOR YEARS" PER PT 05/12/19 Smoking Status: Former Smoker Type Used: Cigarettes 2nd Hand Smoke Exposure: Yes Recent Foreign Travel: No Recent Infectious Disease Expo: No Hospitalization with Isolation: Denies Immunizations Up To Date Tetanus Booster (TDap): More than 5yrs Past Medical History PMH As described under Assessment. Allergies and Home Medications Allergies Coded Allergies: No Known Drug Allergies (Unverified , 04/18/19) Home Medications Atorvastatin Calcium 40 Mg Tablet, 40 MG PO HS, (Reported) Furosemide 20 Mg Tablet, 20 MG PO DAILY, (Reported) Guaifenesin 100 Mg/5 Ml Liquid, 10 ML PO Q6H PRN for COUGH, (Reported) Lisinopril 2.5 Mg Tablet, 2.5 MG PO DAILY, (Reported) Metoprolol Tartrate 25 Mg Tablet, 6.25 MG PO BID, (Reported) TAKES 1/4 (25MG) TABLET Midodrine HCl 5 Mg Tablet, 5 MG PO TID, (Reported) Patient Home Medication List Home Medication List Reviewed: Yes Physical Exam-Cardiology Physical Exam Vital Signs/I&O 05/12/19 05/12/19 05/12/19 05/13/19 23:00 23:20 23:50 00:05 Temp 37.2 Pulse 91 87 Resp 28 36 B/P (MAP) 104/71 (82) 90/64 (73) Pulse Ox 96 96 O2 Delivery Room Air Room Air Room Air 05/13/19 05/13/19 05/13/19 05/13/19 01:00 03:05 03:44 04:00 Temp 36.8 Pulse 80 77 Resp 25 B/P (MAP) 91/57 (68) Pulse Ox 95 O2 Delivery Room Air Room Air 05/13/19 05/13/19 05/13/19 05/13/19 06:50 08:00 08:00 09:00 Temp 36.1 Pulse 68 86 Resp 20 B/P (MAP) 92/55 (67) Pulse Ox 95 O2 Delivery Room Air Room Air Room Air 05/13/19 00:00 Intake Total 1200 ml Balance 1200 ml Capillary Refill : Less Than 3 Seconds Constitutional: appears stated age, AAO x 3; No apparent distress; well- developed, well-nourished HEENT: PERRL; No discharge; hearing is well preserved, oral hygience is good; No ulceration, No xanthelasmas are seen Neck: No carotid bruit; carotid pulses are 2 + bilaterally Respiratory: chest is bilaterally symmetric, lungs clear to auscultation Cardiovascular: regular rate-rhythm, S1 and S2 Gastrointestinal: soft, audible bowel sounds; No spleenomegaly Rectal: deferred Extremities: normal range of motion, non-tender, normal inspection; No clubbing, No cyanosis; no lower extremity edema bilateral; No significant edema Neurologic/Psychiatric: no motor/sensory deficits, alert, normal mood/affect, oriented x 3, power is 5/5 both on sides Skin: normal color, warm/dry; No rash, No ulcerations Data Review Labs Laboratory Tests 05/12/19 12:55: White Blood Count 5.2, Red Blood Count 4.76, Hemoglobin 14.2, Hematocrit 43, Mean Corpuscular Volume 90, Mean Corpuscular Hemoglobin 30, Mean Corpuscular Hemoglobin Concent 33, Red Cell Distribution Width 15.5H, Platelet Count 335, Mean Platelet Volume 9.0, Neutrophils (%) (Auto) 62, Lymphocytes (%) (Auto) 15, Monocytes (%) (Auto) 22H, Eosinophils (%) (Auto) 1, Basophils (%) (Auto) 0, Neutrophils # (Auto) 3.2, Lymphocytes # (Auto) 0.8L, Monocytes # (Auto) 1.1H, Eosinophils # (Auto) 0.1, Basophils # (Auto) 0.0, Neutrophils % (Manual) 57, Lymphocytes % (Manual) 14, Monocytes % (Manual) 18, Eosinophils % (Manual) 1, Band Neutrophils 10, Helmet Cells SLIGHT, Prothrombin Time 13.0, INR Comment 0.9, Activated Partial Thromboplast Time 29, Sodium Level 133L, Potassium Level 4.6, Chloride Level 102, Carbon Dioxide Level 20L, Anion Gap 11, Blood Urea Nitrogen 23H, Creatinine 1.69H, Estimat Glomerular Filtration Rate 44, BUN/Creatinine Ratio 14, Glucose Level 106H, Calcium Level 9.2, Corrected Calcium 8.9, Magnesium Level 2.2, Total Bilirubin 0.3, Aspartate Amino Transf (AST/SGOT) 29, Alanine Aminotransferase (ALT/SGPT) 22, Alkaline Phosphatase 81, Myoglobin 34.3, Troponin I 0.052H, B-Type Natriuretic Peptide 940.7H, Total Protein 7.8, Albumin 4.4 05/12/19 13:15: Lactic Acid Level 2.18*H 05/12/19 13:30: Urine Color YELLOW, Urine Clarity CLEAR, Urine pH 5.5, Urine Specific [place] >=1.030, Urine Protein 2+H, Urine Glucose (UA) NEGATIVE, Urine Ketones NEGATIVE, Urine Nitrite NEGATIVE, Urine Bilirubin NEGATIVE, Urine Urobilinogen 0.2, Urine Leukocyte Esterase NEGATIVE, Urine RBC (Auto) NEGATIVE, Urine RBC NONE, Urine WBC 0-2, Urine Squamous Epithelial Cells RARE, Urine Crystals NONE, Urine Bacteria NEGATIVE, Urine Casts NONE, Urine Mucus NEGATIVE, Urine Culture Indicated NO, Urine Opiates Screen NEGATIVE, Urine Oxycodone Screen NEGATIVE, Urine Methadone Screen NEGATIVE, Urine Propoxyphene Screen NEGATIVE, Urine Barbiturates Screen NEGATIVE, Ur Tricyclic Antidepressants Screen NEGATIVE, Urine Phencyclidine Screen NEGATIVE, Urine Amphetamines Screen NEGATIVE, Urine Methamphetamines Screen NEGATIVE, Urine Benzodiazepines Screen NEGATIVE, Urine Cocaine Screen NEGATIVE, Urine Cannabinoids Screen POSITIVEH 05/12/19 16:30: Lactic Acid Level 0.90 05/12/19 17:55: Troponin I 0.067H 05/13/19 06:15: Triglycerides Level 185H, Cholesterol Level 134, LDL Cholesterol Direct 70, VLDL Cholesterol 37, HDL Cholesterol 31L Microbiology 05/12/19 Influenza Types A,B Antigen (VICOTRINO) - Final, Complete ECG Impression ECG Initial ECG Rhythm: Normal Sinus Comment Left bundle branch block with QRS duration of 152 ms. A/P-Cardiology Assessment/Admission Diagnosis Severe cardiomyopathy, Chest pain with borderline positive troponin, Borderline low blood pressure Plan Severe cardiomyopathy, awaiting records from [facility]. If negative coronary angiography on 04/17/2019 then the patient has nonischemic dilated cardiomyopathy. He is already wearing a LifeVest for primary prevention of sudden cardiac . The importance of wearing the LifeVest was emphasized. The patient understood. The patient's blood pressure was 90 systolic. We are therefore gradually restarting his outpatient medications. Low dose metoprolol was started last night. We will start lisinopril 2.5 mg this morning. He was continued on Lasix from last night. Mild acute systolic congestive heart failure with a BNP of 640. Continue Lasix. Significant improvement overnight. Repeat echocardiogram. Hyperlipidemia: Continue statin therapy. Chest pain with borderline positive troponin. If we can get the records from [facility] and indeed the coronary angiogram from 04/17/2019 is normal then we do not need to repeat coronary angiography again and this is likely type II myocardial infarction due to congestive heart failure. The patient wants to transfer his cardiology and electrophysiology care to [facility]. We will arrange for follow-up in my office once he is ready to discharge. Thank you for your consultation. Please call me if you have any questions. Estelle Barragan MD, FACP, FACC, FSCAI, FHRS, CCDS Interventional Cardiology Cardiac Electrophysiology Vascular Medicine and Endovascular Interventions Clinical Quality Measures AMI/AHF: ASA po Prior to arrival: No DVT/VTE Risk/Contraindication: Risk Factor Score Per Nursin RFS Level Per Nursing on Admit: 4+=Very High Josiah BARRAGAN MD May 13, 2019 08:47 POS
[2019-05-13] MEDS ORDERED: FUROSEMIDE 20 MG (LASIX) TAB PO SCH (09:00)
[2019-05-13] MEDS ORDERED: ASPIRIN 81 MG CHEW (CHILDREN'S ASA) PO SCH (09:00)
[2019-05-13] MEDS ORDERED: LISINOPRIL 2.5 MG TABS PO SCH (09:00)
[2019-05-13] MEDS ORDERED: GUAI100L13 PO ×2 (09:16)
--- NOTE | 2019-05-13 09:17 | NUR ---
SPOKE WITH THE PATIENT ABOUT HIS MEDICATIONS. WE WENT OVER THE EXT MED HX AND HE VERIFIED HOW HE TAKES THEM. HE STATES HE IS NO LONGER TAKING THE FOLLOWING THAT WAS RECENTLY FILLED: 05-05-19 POTASSIUM 20MEQ #30 04-24-19 DEPAKOTE 125MG SPRINKLE BID #30
[2019-05-13] MEDS ORDERED: lisINopril 5 MG (PRINIVIL) TABLET PO SCH (09:30)
[2019-05-13 12:00] VITALS: BP 104/70
[2019-05-13] MEDS ORDERED: ASPI-999 PO ×2 (13:01)
--- NOTE | 2019-05-13 13:04 | Discharge Instructions ---
Discharge [email or web address] Discharge Medications New, Converted or Re-Newed RX: Transmitted to Pharmacy New Medications: Aspirin (Aspirin) 81 Mg Tab.chew 81 MG PO DAILY@0900, #30 TAB 0 Refills Continued Medications: Atorvastatin Calcium (Atorvastatin Calcium) 40 Mg Tablet 40 MG PO HS, TAB Furosemide (Furosemide) 20 Mg Tablet 20 MG PO DAILY, TAB Guaifenesin (Guaifenesin) 100 Mg/5 Ml Liquid 10 ML PO Q6H PRN for COUGH, EA Lisinopril (Lisinopril) 2.5 Mg Tablet 2.5 MG PO DAILY, TAB Metoprolol Tartrate (Metoprolol Tartrate) 25 Mg Tablet 6.25 MG PO BID, TAB TAKES 1/4 (25MG) TABLET Midodrine HCl (Midodrine HCl) 5 Mg Tablet 5 MG PO TID, TAB Patient Instructions Goal/Follow Up Appt: Follow up with Verónica Sanchez APRN at [facility] on 05/19 at 2:40 pm. Follow up with Dr. Barragan as directed. Return to The Hospital For: Fever, worsening shortness of breath, worsening chest pain Activity & Diet Discharge Diet: Low Sodium Diet, Cardiac Diet Activity as Tolerated: Yes Copy Copies To 1: LUCIO Arambula BETHANY N MD May 13, 2019 13:04 POS
--- NOTE | 2019-05-13 13:05 | Short Stay Summary ---
HPI History of Present Illness: 44 yo male who was recently hospitalized in [place] in March and had severe nonischemic cardiomyopathy and has lifevest in place, presented to ER due to chest pain. He also had associated vomiting and diarrhea. He is feeling much better today. He has had some congestion as well, but denies cough. Date seen by provider: May 13, 2019 Time Seen by Provider: 10:35 Attending Physician Elijah Wood MD [facility] Consult Date of Admission May 12, 2019 at 15:53 Home Medications Home Medications Reviewed patient Home Medication Reconciliation performed by pharmacy medication reconciliations integration technician and/or nursing. Patients Allergies have been reviewed. Allergies Coded Allergies: No Known Drug Allergies (Unverified , 04/18/19) [id number] Hx Patient Social History Alcohol Use: Past History Recreational Drug Use: No Drug of Choice: HX: METHAMPHETAMINES, THC. DENIES IV USE OR USE "FOR YEARS" PER PT 05/12/19 Smoking Status: Former Smoker Type Used: Cigarettes 2nd Hand Smoke Exposure: Yes Recent Foreign Travel: No Contact w/other who traveled: No Recent Hopitalizations: Yes (04/18 "coded at [facility]") Recent Infectious Disease Expo: No Immunizations Up To Date Tetanus Booster (TDap): More than 5yrs Past Medical History PMHx: Nonischemic cardiomyopathy History of methamphetamine use SurgHx: appendectomy Family Medical History Significant Family History: CAD Under 55 Years Old Review of Systems (CHC) Constitutional: fever EENTM: nose congestion Respiratory: No cough Cardiovascular: see HPI Gastrointestinal: see HPI Genitourinary: dysuria (relates to catheter use) Musculoskeletal: no symptoms reported Skin: No rash Reviewed Test Results Reviewed Test Results Lab Laboratory Tests Test 05/12/19 12:55 05/12/19 13:15 05/12/19 13:30 05/12/19 16:30 Range/Units White Blood Count 5.2 4.3-11.0 10^3/uL Red Blood Count 4.76 4.35-5.85 10^6/uL Hemoglobin 14.2 13.3-17.7 G/DL Hematocrit 43 40-54 % Mean Corpuscular Volume 90 80-99 FL Mean Corpuscular Hemoglobin 30 25-34 PG Mean Corpuscular Hemoglobin Concent 33 32-36 G/DL Red Cell Distribution Width 15.5 H 10.0-14.5 % Platelet Count 335 130-400 10^3/uL Mean Platelet Volume 9.0 7.4-10.4 FL Neutrophils (%) (Auto) 62 42-75 % Lymphocytes (%) (Auto) 15 12-44 % Monocytes (%) (Auto) 22 H 0-12 % Eosinophils (%) (Auto) 1 0-10 % Basophils (%) (Auto) 0 0-10 % Neutrophils # (Auto) 3.2 1.8-7.8 X 10^3 Lymphocytes # (Auto) 0.8 L 1.0-4.0 X 10^3 Monocytes # (Auto) 1.1 H 0.0-1.0 X 10^3 Eosinophils # (Auto) 0.1 0.0-0.3 10^3/uL Basophils # (Auto) 0.0 0.0-0.1 10^3/uL Neutrophils % (Manual) 57 % Lymphocytes % (Manual) 14 % Monocytes % (Manual) 18 % Eosinophils % (Manual) 1 % Band Neutrophils 10 % Helmet Cells SLIGHT Prothrombin Time 13.0 12.2-14.7 SEC INR Comment 0.9 0.8-1.4 Activated Partial Thromboplast Time 29 24-35 SEC Sodium Level 133 L 135-145 MMOL/L Potassium Level 4.6 3.6-5.0 MMOL/L Chloride Level 102 98-107 MMOL/L Carbon Dioxide Level 20 L 21-32 MMOL/L Anion Gap 11 5-14 MMOL/L Blood Urea Nitrogen 23 H 7-18 MG/DL Creatinine 1.69 H 0.60-1.30 MG/DL Estimat Glomerular Filtration Rate 44 BUN/Creatinine Ratio 14 Glucose Level 106 H 70-105 MG/DL Calcium Level 9.2 8.5-10.1 MG/DL Corrected Calcium 8.9 8.5-10.1 MG/DL Magnesium Level 2.2 1.6-2.4 MG/DL Total Bilirubin 0.3 0.1-1.0 MG/DL Aspartate Amino Transf (AST/SGOT) 29 5-34 U/L Alanine Aminotransferase (ALT/SGPT) 22 0-55 U/L Alkaline Phosphatase 81 40-136 U/L Myoglobin 34.3 10.0-92.0 NG/ML Troponin I 0.052 H <0.028 NG/ML B-Type Natriuretic Peptide 940.7 H <100.0 PG/ML Total Protein 7.8 6.4-8.2 GM/DL Albumin 4.4 3.2-4.5 GM/DL Lactic Acid Level 2.18 *H 0.90 0.50-2.00 MMOL/L Urine Color YELLOW Urine Clarity CLEAR Urine pH 5.5 5-9 Urine Specific [place] >=1.030 1.016-1.022 Urine Protein 2+ H NEGATIVE Urine Glucose (UA) NEGATIVE NEGATIVE Urine Ketones NEGATIVE NEGATIVE Urine Nitrite NEGATIVE NEGATIVE Urine Bilirubin NEGATIVE NEGATIVE Urine Urobilinogen 0.2 < = 1.0 MG/DL Urine Leukocyte Esterase NEGATIVE NEGATIVE Urine RBC (Auto) NEGATIVE NEGATIVE Urine RBC NONE /HPF Urine WBC 0-2 /HPF Urine Squamous Epithelial Cells RARE /HPF Urine Crystals NONE /LPF Urine Bacteria NEGATIVE /HPF Urine Casts NONE /LPF Urine Mucus NEGATIVE /LPF Urine Culture Indicated NO Urine Opiates Screen NEGATIVE NEGATIVE Urine Oxycodone Screen NEGATIVE NEGATIVE Urine Methadone Screen NEGATIVE NEGATIVE Urine Propoxyphene Screen NEGATIVE NEGATIVE Urine Barbiturates Screen NEGATIVE NEGATIVE Ur Tricyclic Antidepressants Screen NEGATIVE NEGATIVE Urine Phencyclidine Screen NEGATIVE NEGATIVE Urine Amphetamines Screen NEGATIVE NEGATIVE Urine Methamphetamines Screen NEGATIVE NEGATIVE Urine Benzodiazepines Screen NEGATIVE NEGATIVE Urine Cocaine Screen NEGATIVE NEGATIVE Urine Cannabinoids Screen POSITIVE H NEGATIVE Test 05/12/19 17:55 05/13/19 06:15 Range/Units Troponin I 0.067 H <0.028 NG/ML Triglycerides Level 185 H <150 MG/DL Cholesterol Level 134 < 200 MG/DL LDL Cholesterol Direct 70 1-129 MG/DL VLDL Cholesterol 37 5-40 MG/DL HDL Cholesterol 31 L 40-60 MG/DL Radiology CXR 05/12/19- Cardiomegaly and persistent atelectasis/infiltrate right medial lung base Physical Exam-(CHC) Physical Exam Vital Signs VS - Last 72 Hours, by Label POS 05/12/19 05/12/19 05/12/19 05/12/19 12:44 12:44 17:17 17:39 Temp 36.8 36.8 Pulse 92 80 86 Resp 14 14 B/P (MAP) 102/67 (79) 98/67 (79) Pulse Ox 98 95 O2 Delivery Room Air Room Air Room Air 05/12/19 05/12/19 05/12/19 05/12/19 17:43 17:50 18:00 19:00 Pulse 84 85 87 Resp 32 26 B/P (MAP) 90/58 (69) 91/77 (82) Pulse Ox 95 O2 Delivery Room Air Room Air Room Air 05/12/19 05/12/19 05/12/19 05/12/19 19:00 19:17 19:43 20:00 Temp 37.1 Pulse 87 87 Resp 31 21 B/P (MAP) 88/55 (66) 90/57 (68) O2 Delivery Room Air Room Air Room Air 05/12/19 05/12/19 05/12/19 05/12/19 20:01 20:13 21:15 22:00 Pulse 89 92 92 Resp 17 28 30 B/P (MAP) 104/56 (72) 100/83 (89) 97/51 (66) Pulse Ox 96 96 O2 Delivery Room Air Room Air Room Air Room Air 05/12/19 05/12/19 05/12/19 05/13/19 23:00 23:20 23:50 00:05 Temp 37.2 Pulse 91 87 Resp 28 36 B/P (MAP) 104/71 (82) 90/64 (73) Pulse Ox 96 96 O2 Delivery Room Air Room Air Room Air 05/13/19 05/13/19 05/13/19 05/13/19 01:00 03:05 03:44 04:00 Temp 36.8 Pulse 80 77 Resp 25 B/P (MAP) 91/57 (68) Pulse Ox 95 O2 Delivery Room Air Room Air 05/13/19 05/13/19 05/13/19 05/13/19 06:50 08:00 08:00 09:00 Temp 36.1 Pulse 68 86 Resp 20 B/P (MAP) 92/55 (67) Pulse Ox 95 O2 Delivery Room Air Room Air Room Air 05/13/19 05/13/19 12:00 12:00 Temp 37.5 Pulse 74 Resp 20 B/P (MAP) 104/70 (81) Pulse Ox 96 O2 Delivery Room Air Room Air Capillary Refill : Less Than 3 Seconds General Appearance: no apparent distress Respiratory: lungs clear, normal breath sounds Cardiovascular: regular rate, rhythm, no murmur Extremities: no pedal edema Neurologic/Psychiatric: alert, normal mood/affect Skin: normal color, warm/dry Short Stay Diagnosis Discharge Diagnosis-Short Stay Admission Diagnosis Chest pain Chronic systolic nonischemic heart failure with EF 15% at outside facility within last month Final Discharge Diagnosis See problem list Conclusion Plan See problem list Was the Problem List Reviewed?: Yes Clinical Quality Measures AMI/AHF: ASA po Prior to arrival: No DVT/VTE Risk/Contraindication: Risk Factor Score Per Nursin RFS Level Per Nursing on Admit: 4+=Very High Assessment/Plan Assessment/Plan (1) Chest pain Status: Acute Assessment & Plan: Troponin mildly elevated, record review from [facility] done by Dr. Barragan and noted that patient had cath in Mar with no blockages, troponin elevated thought to be secondary to severe cardiomyopathy. (2) CHF (congestive heart failure) Status: Chronic Assessment & Plan: Continued home meds and lifevest, follow up with Dr. Barragan as patient would prefer to receive care in [place]. Qualifiers: Qualified Codes: I50.22 - Chronic systolic (congestive) heart failure ELIJAH WOOD MD May 13, 2019 13:05 POS
--- NOTE | 2019-05-13 13:30 | NUR ---
Initial visit with pt and his significant other, Lizeth. They said they live with the pt's mother. Lizeth and the pt's mother smoke, and the pt said he is determined to quit smoking and eat a heart-healthy diet. He shared a history of alcoholism and said he quit drinking 10 years ago. He demonstrated transparency about history of drug use and states his recent heart trouble "woke him up," that he is motivated to make life changes for his health. He said the video news editor wants him to monitor his health for 3 months and confirm he is not taking drugs or drinking before doing any procedures which these behaviors could reverse. The pt said he did not feel judged in anyway, and appreciated the physician's forthrightness. Both thanked me for visiting and said they were expecting the pt to discharge today.
== END 2019-05-13 12:58 | disposition home or self-care (01) ==
LOC: EDUNIT# 12:44 → ER 12:45 → UNDOADMOB 15:53 → ICU 15:53 → CSD 16:42 → ICU 17:17 → CSD 17:17 → ICU 17:35 → UNDODISOB 05-13 13:25
PROVIDERS: ADMIT Family Medicine; ATTEND Family Medicine
DX: R07.9 Chest pain, unspecified (principal); I50.22 Chronic systolic (congestive) heart failure; I35.1 Nonrheumatic aortic (valve) insufficiency; I42.0 Dilated cardiomyopathy; Z87.891 Personal history of nicotine dependence; Z79.899 Other long term (current) drug therapy
CPT/HCPCS: 36415; 71045; 80053; 80061; 80306; 81000; 83605; 83735; 83874; 83880; 84484; 85007; 85027; 85610; 85730; 87040; 87804; 93005; 93041; 93306; 96361; 96374

== ENCOUNTER 2019-05-15 17:45 | Emergency (ER) | payer MEDICAID ==
[~2019-05-15] VITALS: Ht 157.4 cm; Wt 71.8 kg
[~2019-05-15 17:45] MED LIST changes: +ASPI-999 PO; +ATOR40TA70 PO; +FURO20TA4 PO; +GUAI100L13 PO; +LISI2.5T PO; +METO-333 PO; +METO5AMP2 IV; +MIDO5TAB PO
[2019-05-15] MEDS ORDERED: NS IV 500 ML 500 ML IV ONE (17:52)
[2019-05-15] MEDS ORDERED: NS IV 500 ML 500 ML ONE (17:53)
[2019-05-15] MEDS ORDERED: ASPIRIN 81 MG CHEW (CHILDREN'S ASA) ONE (17:53)
[2019-05-15] MEDS ORDERED: fentaNYL INJECTION 100 MCG/2 ML AMP ONE (17:53)
--- NOTE | 2019-05-15 17:59 | ED Chest Pain ---
General Stated Complaint: CHEST PAIN Source: patient, other Exam Limitations: no limitations (SONIA SANCHEZ) History of Present Illness Date Seen by Provider: May 15, 2019 Time Seen by Provider: 17:46 Initial Comments The patient presents to ER by private conveyance with his significant other chief complaint of chest pain about an hour ago while he was at [facility] walking around. The pain persisted despite resting so he came to the ER. He has a history in the past several months of having 4 different heart attacks. He has a history of distant of using IV methamphetamines. He does not endorse using drugs anymore. He quit smoking cigarettes. He has a life vest put on by Dr. Gomes at [facility] and has switched his care over to Dr. Barragan locally. He follows with Verónica Nice at [facility]. He feels mildly short of breath but denies a history of lung disease. No wheezing or cough. He denies fevers chills nausea or diarrhea. His pain is in his left chest nonradiating and he says his reminiscent of his previous acute coronary syndrome pain. He rates it as a 9 out of 10. He has not felt any shocks or kicks from his life vest. (SONIA SANCHEZ) Allergies and Home Medications Allergies Coded Allergies: No Known Drug Allergies (Unverified , 04/18/19) Home Medications Aspirin 81 Mg Tab.chew, 81 MG PO DAILY@0900 Prescribed by: ELIJAH GAYTAN on 05/13/19 1301 Atorvastatin Calcium 40 Mg Tablet, 40 MG PO HS, (Reported) Furosemide 20 Mg Tablet, 20 MG PO DAILY, (Reported) Guaifenesin 100 Mg/5 Ml Liquid, 10 ML PO Q6H PRN for COUGH, (Reported) Hydrocodone Bit/Acetaminophen 1 Tab Tab, 1 EACH PO Q4-6HR PRN for PAIN-MODERATE Prescribed by: PATRICK KUMAR on 05/15/192103 Lisinopril 2.5 Mg Tablet, 2.5 MG PO DAILY, (Reported) Magnesium Oxide 400 Mg Tablet, 400 MG PO BID Prescribed by: PATRICK KUMAR on 05/15/192103 Metoprolol Tartrate 25 Mg Tablet, 6.25 MG PO BID, (Reported) TAKES 1/4 (25MG) TABLET Midodrine HCl 5 Mg Tablet, 5 MG PO TID, (Reported) Patient Home Medication List Home Medication List Reviewed: Yes (SONIA SANCHEZ) Review of Systems Review of Systems Constitutional: No chills, No diaphoresis, No fever EENTM: No Blurred Vision, No Double Vision Respiratory: Denies Cough, Denies Shortness of Air Cardiovascular: See HPI, Chest Pain; Denies Edema, Denies Irregular Heart Rate, Denies Palpitations, Denies Syncope Gastrointestinal: Denies Abdomen Distended, Denies Abdominal Pain, Denies Constipated, Denies Diarrhea Genitourinary: Denies Burning, Denies Discharge Musculoskeletal: No back pain, No joint pain Skin: No pruritus, No rash Psychiatric/Neurological: Denies Headache, Denies Numbness, Denies Paresthesia (SONIA SANCHEZ) Past Geqtqgt-Vxcsck-Ulqcxj Hx Patient Social History Alcohol Use: Denies Use Recreational Drug Use: Yes Drug of Choice: HX: METHAMPHETAMINES, THC. DENIES IV USE OR USE "FOR YEARS" PER PT 05/12/19 Smoking Status: Never a Smoker Type Used: Cigarettes 2nd Hand Smoke Exposure: Yes Recent Foreign Travel: No Contact w/Someone Who Travel: No Recent Hopitalizations: Yes (04/18 "coded at [facility]") (SONIA SANCHEZ) Immunizations Up To Date Tetanus Booster (TDap): More than 5yrs (SONIA SANCHEZ) Past Medical History Surgeries: Yes Appendectomy Respiratory: No Cardiac: Yes Heart Attack Neurological: Yes (NO SEIZURE MEDICATIONS ( DEPAKOTE ) FOR 6 MONTHS, PER PT ON 04/18/19) Seizure Disorder Genitourinary: No Gastrointestinal: No Musculoskeletal: No Endocrine: No HEENT: Yes (POOR DENTITION) Cancer: No Psychosocial: No (POLYSUBSTANCE ABUSE HISTORY) Integumentary: No Blood Disorders: No (SONIA SANCHEZ) Family Medical History CAD Under 55 Years Old (SONIA SANCHEZ) Physical Exam Vital Signs Vital Signs - First Documented 05/15/19 17:45 Temp 36.5 Pulse 87 Resp 22 B/P (MAP) 98/71 (80) Pulse Ox 100 O2 Delivery Room Air (PATRICK SALMERON MD) Vital Signs Capillary Refill : (SONIA SANCHEZ) Height, Weight, BMI Height: 5'" Weight: 140lbs. oz. 63.539700pe; 28.90 BMI Method:Stated General Appearance: Anxious, Moderate Distress HEENT: PERRL/EOMI, Pharynx Normal, Moist Mucous Membranes Neck: Full Range of Motion, Normal Inspection Respiratory: Chest Non Tender, Lungs Clear, Normal Breath Sounds, No Accessory Muscle Use, No Respiratory Distress Cardiovascular: Regular Rate, Rhythm, No Edema, No Gallop, No JVD, No Murmur, Normal Peripheral Pulses Gastrointestinal: No Organomegaly, Non Tender, Soft Extremity: Normal Capillary Refill, Normal Inspection, No Pedal Edema Neurologic/Psychiatric: Alert, Oriented x3 Skin: Normal Color, Warm/Dry (JERALD,SONIA J) Progress/Results/Core Measures Results/Orders Lab Results Laboratory Tests Test 05/15/19 17:52 05/15/19 18:31 05/15/19 19:54 Range/Units White Blood Count 3.8 L 4.3-11.0 10^3/uL Red Blood Count 4.94 4.35-5.85 10^6/uL Hemoglobin 14.4 13.3-17.7 G/DL Hematocrit 44 40-54 % Mean Corpuscular Volume 89 80-99 FL Mean Corpuscular Hemoglobin 29 25-34 PG Mean Corpuscular Hemoglobin Concent 33 32-36 G/DL Red Cell Distribution Width 15.5 H 10.0-14.5 % Platelet Count 249 130-400 10^3/uL Mean Platelet Volume 8.9 7.4-10.4 FL Neutrophils (%) (Auto) 44 42-75 % Lymphocytes (%) (Auto) 31 12-44 % Monocytes (%) (Auto) 22 H 0-12 % Eosinophils (%) (Auto) 3 0-10 % Basophils (%) (Auto) 1 0-10 % Neutrophils # (Auto) 1.7 L 1.8-7.8 X 10^3 Lymphocytes # (Auto) 1.2 1.0-4.0 X 10^3 Monocytes # (Auto) 0.8 0.0-1.0 X 10^3 Eosinophils # (Auto) 0.1 0.0-0.3 10^3/uL Basophils # (Auto) 0.0 0.0-0.1 10^3/uL Neutrophils % (Manual) 45 % Lymphocytes % (Manual) 37 % Monocytes % (Manual) 14 % Eosinophils % (Manual) 2 % Basophils % (Manual) 0 % Band Neutrophils 2 % Blood Morphology Comment NORMAL Prothrombin Time 12.0 L 12.2-14.7 SEC INR Comment 0.9 0.8-1.4 Activated Partial Thromboplast Time 25 24-35 SEC Sodium Level 135 135-145 MMOL/L Potassium Level 4.5 3.6-5.0 MMOL/L Chloride Level 102 98-107 MMOL/L Carbon Dioxide Level 19 L 21-32 MMOL/L Anion Gap 14 5-14 MMOL/L Blood Urea Nitrogen 23 H 7-18 MG/DL Creatinine 1.69 H 0.60-1.30 MG/DL Estimat Glomerular Filtration Rate 44 BUN/Creatinine Ratio 14 Glucose Level 103 70-105 MG/DL Calcium Level 8.9 8.5-10.1 MG/DL Corrected Calcium 8.6 8.5-10.1 MG/DL Magnesium Level 1.5 L 1.6-2.4 MG/DL Total Bilirubin 0.3 0.1-1.0 MG/DL Aspartate Amino Transf (AST/SGOT) 23 5-34 U/L Alanine Aminotransferase (ALT/SGPT) 20 0-55 U/L Alkaline Phosphatase 75 40-136 U/L Myoglobin 78.8 10.0-92.0 NG/ML Troponin I 0.037 H 0.039 H <0.028 NG/ML B-Type Natriuretic Peptide 838.0 H <100.0 PG/ML Total Protein 7.6 6.4-8.2 GM/DL Albumin 4.4 3.2-4.5 GM/DL Urine Opiates Screen NEGATIVE NEGATIVE Urine Oxycodone Screen NEGATIVE NEGATIVE Urine Methadone Screen NEGATIVE NEGATIVE Urine Propoxyphene Screen NEGATIVE NEGATIVE Urine Barbiturates Screen NEGATIVE NEGATIVE Ur Tricyclic Antidepressants Screen NEGATIVE NEGATIVE Urine Phencyclidine Screen NEGATIVE NEGATIVE Urine Amphetamines Screen NEGATIVE NEGATIVE Urine Methamphetamines Screen NEGATIVE NEGATIVE Urine Benzodiazepines Screen NEGATIVE NEGATIVE Urine Cocaine Screen NEGATIVE NEGATIVE Urine Cannabinoids Screen NEGATIVE NEGATIVE (PATRICK SALMERON MD) My Orders Orders - PATRICK SALMERON MD Drug Screen Stat (Urine) (05/15/19 18:09) Troponin I (05/15/19 19:52) Fentanyl Injection (Sublimaze Injection (05/15/19 20:00) Magnesium 1 Gm/100 Ml Ivpb (Magnesium Hkalil (05/15/19 21:00) Oxycodone/Apap 5/325mg Tablet (Percocet (05/15/19 21:00) (PATRICK SALMERON MD) Medications Given in ED Current Medications Medications Dose Ordered Sig/Sarah Route Start Time Stop Time Status Last Admin Dose Admin Aspirin 324 mg ONCE ONCE PO 05/15/19 18:00 05/15/19 18:01 DC 05/15/19 17:56 324 MG Fentanyl Citrate 50 mcg ONCE ONCE IVP 05/15/19 18:00 05/15/19 18:01 DC 05/15/19 17:57 50 MCG Fentanyl Citrate 50 mcg ONCE ONCE IVP 05/15/19 20:00 05/15/19 20:01 DC 05/15/19 19:55 50 MCG Magnesium Sulfate/ Dextrose 100 ml @ 100 mls/hr ONCE ONCE IV 05/15/19 21:00 05/15/19 21:59 DC 05/15/19 21:13 100 MLS/HR Oxycodone/ Acetaminophen 1 tab ONCE ONCE PO 05/15/19 21:00 05/15/19 21:01 DC 05/15/19 21:09 1 TAB Sodium Chloride 500 ml @ 0 mls/hr Q0M ONCE IV 05/15/19 17:52 05/15/19 18:10 DC 05/15/19 17:57 500 MLS/HR (PATRICK SALMERON MD) Vital Signs/I&O 05/15/19 05/15/19 05/15/19 17:45 17:45 22:15 Temp 36.5 36.5 Pulse 87 82 Resp 22 22 B/P (MAP) 98/71 (80) 96/69 (80) Pulse Ox 100 100 O2 Delivery Room Air Room Air Room Air 05/16/19 00:00 Intake Total 100 ml Balance 100 ml (PATRICK SALMERON MD) Progress Progress Note : Time: 17:58 Progress Note 324 mg of aspirin chewed and swallowed in the ER. His blood pressure was soft 98/71 so we will not be giving any nitroglycerin. He says he gets violently nauseated with morphine and would prefer fentanyl. Plan to give him 50 mg of fentanyl to start. We'll obtain a cardiac workup included chest x-ray and labs. Despite his low blood pressure we will hold off any IV fluids. Echocardiogram by Dr. Barragan from 05/12/19 demonstrates cavity size is increased left wall thickness is normal and EF of 15-20%. Mild to moderate aortic valve regurgitation, bicuspid. Severe dilated cardiomyopathy. Left bundle branch is not new. Patient has a stated history of an angiogram done April 17, 2019 in [place] which did not demonstrate significant coronary artery disease. (SONIA SANCHEZ) Progress Note : Progress Note Care of this patient was assumed from Dr. Sanchez at shift change. Patient was treated with fentanyl. He was reexamined and found to have tenderness on the chest wall near his life vest harness. Workup demonstrated stable renal failure, stable chronic troponin elevation, and stable elevated BNP. A repeat troponin was obtained and was unchanged. Patient had multiple hypotensive measurements. He states this sometimes happens due to his diuresis, and he sometimes requires IV hydration. 500 mL normal saline was administered which corrected his blood pressure. He was feeling better also after administration of IV fluids. Case was discussed with Dr. Ibanez. He agrees that no further cardiac evaluation is required in the ER and admission is not required. Close follow-up with Dr. Barragan was advised. He was found to have hypomagnesemia. Replacement was initiated with 1 g IV in the ER. (PATRICK SALMERON MD) Initial ECG Impression Date: May 15, 2019 Initial ECG Impression Time: 17:50 Initial ECG Rate: 91 Initial ECG Rhythm: Normal Sinus Initial ECG Intervals: QT (517) Initial ECG Impression: Nonspecific Changes Initial ECG Comparisson: Unchanged Comment Patient has left bundle branch block with sinus rhythm and no clinically relev ant ST elevation or depression. 0 points on the Sgarbossa's criteria. (SONIA SANCHEZ) Diagnostic Imaging Diagonstic Imaging: Xray Plain Films/CT/US/NM/MRI: chest (1v) Reviewed: Reviewed by Me (SONIA SANCHEZ) Comments Chest x-ray viewed by me and report reviewed. See report below: NAME: IVÁN JEFFERY [facility] REC#: [id number] PT STATUS: REG ER : 1975 PHYSICIAN: SONIA SANCHEZ MD ADMIT DATE: 05/15/19/ER Signed Date of Exam:05/15/19 CHEST 1 VIEW, AP/PA ONLY EXAMINATION: Chest, one view. HISTORY: Chest pain. FINDINGS: Comparison is 05/12/2019. Heart is moderately enlarged. No pleural effusion or pneumothorax. No edema or pneumonia. IMPRESSION: 1. Moderate enlargement of the heart. Dictated by: Dictated on workstation # [id number] Dict: 05/15/191809 Trans: 05/15/191815 [id number] Interpreted by: NESTOR WARREN MD Electronically signed by: NESTOR WARREN MD 05/15/191815 (PATRICK SALMERON MD) Transfer of Care Time: 18:04 Care transferred to: Dr. Kumar (SONIA SANCHEZ) Departure Impression Primary Impression: Chest wall pain Additional Impressions: Cardiomyopathy Qualified Codes: I42.9 - Cardiomyopathy, unspecified Hypomagnesemia Disposition: HOME, SELF-CARE Condition: Improved Departure-Patient Inst. Decision time for Depature: 21:02 (PATRICK SALMERON MD) [place] [facility] [place] (PCP/Family) Primary Care Physician Patient Instructions: Chest Pain That Is Not Caused by the Heart (DC) Add. Discharge Instructions: For mild pain you may take Tylenol (acetaminophen) up to 1000 mg every 6 hours as needed. For more severe you may take hydrocodone as prescribed. Drink plenty of clear liquids through the weekend. Contact Dr. Friedman office on Saturday for follow-up. You may need your dose of Lasix (frusemide) adjusted. Return to the emergency room if you have worsening symptoms. Scripts Hydrocodone Bit/Acetaminophen (Hydrocodone/Acetaminophen 5/325mg Tablet) 1 Tab Tab 1 EACH PO Q4-6HR PRN for PAIN-MODERATE MDD 10 for 3 Days, TAB Prov: PATRICK SALMERON MD 05/15/19 Magnesium Oxide (Magnesium Oxide) 400 Mg Tablet 400 MG PO BID, #10 TAB Prov: PATRICK SALMERON MD 05/15/19 Copy Copies To 1: Josiah BARRAGAN MD Copies To 2: DUONG PERKINS TITUS J May 15, 2019 17:59 POSPATRICK SALMERON MD May 15, 2019 18:58 POS
[2019-05-15] MEDS ORDERED: ASPIRIN 81 MG CHEW (CHILDREN'S ASA) PO ONE (18:00)
[2019-05-15] MEDS ORDERED: fentaNYL INJECTION 100 MCG/2 ML AMP IVP ONE ×2 (18:00→20:00)
[2019-05-15 18:04] LABS: BASOPHILS % (AUTO) 1 % (0-10); EOSINOPHILS # (AUTO) 0.1 10^3/uL (0.0-0.3); EOSINOPHILS % (AUTO) 3 % (0-10); HEMATOCRIT 44 % (40-54); HEMOGLOBIN 14.4 G/DL (13.3-17.7); LYMPHOCYTES # (AUTO) 1.2 X 10^3 (1.0-4.0); LYMPHOCYTES % (AUTO) 31 % (12-44); MEAN CORPUSCULAR HEMOGLOBIN 29 PG (25-34); MEAN CORPUSCULAR HGB CONC 33 G/DL (32-36); MEAN CORPUSCULAR VOLUME 89 FL (80-99); MEAN PLATELET VOLUME 8.9 FL (7.4-10.4); MONOCYTES # (AUTO) 0.8 X 10^3 (0.0-1.0); MONOCYTES % (AUTO) 22 % (0-12); NEUTROPHILS # (AUTO) 1.7 X 10^3 (1.8-7.8); NEUTROPHILS % (AUTO) 44 % (42-75); PLATELET COUNT 249 10^3/uL (130-400); RED CELL DISTRIBUTION WIDTH 15.5 % (10.0-14.5); WHITE BLOOD COUNT 3.8 10^3/uL (4.3-11.0)
--- NOTE | 2019-05-15 18:11 | Diagnostic Imaging Report ---
EXAMINATION: Chest, one view. HISTORY: Chest pain. FINDINGS: Comparison is 05/12/2019. Heart is moderately enlarged. No pleural effusion or pneumothorax. No edema or pneumonia. IMPRESSION: 1. Moderate enlargement of the heart. Dictated by: Dictated on workstation # [id number]
[2019-05-15 18:14] LABS: INR 0.9 (0.8-1.4)
[2019-05-15 18:27] LABS: ALBUMIN 4.4 GM/DL (3.2-4.5); BILIRUBIN,TOTAL 0.3 MG/DL (0.1-1.0); CALCIUM 8.9 MG/DL (8.5-10.1); CREATININE SERUM 1.69 MG/DL (0.60-1.30); MAGNESIUM 1.5 MG/DL (1.6-2.4); POTASSIUM 4.5 MMOL/L (3.6-5.0); TOTAL PROTEIN 7.6 GM/DL (6.4-8.2)
[2019-05-15 19:03] LABS: NEUTROPHILS % (MANUAL) 45 %
[2019-05-15 19:03] LABS: AMPHETAMINE SCREEN, URINE NEGATIVE (NEGATIVE); BARBITURATE SCREEN URINE NEGATIVE (NEGATIVE); BENZODIAZEPINES SCREEN URINE NEGATIVE (NEGATIVE); CANNABINOID SCREEN, URINE NEGATIVE (NEGATIVE); COCAINE SCREEN URINE NEGATIVE (NEGATIVE); METHADONE STAT NEGATIVE (NEGATIVE); METHAMPHETAMINE SCREEN URINE S NEGATIVE (NEGATIVE); OPIATE SCREEN URINE NEGATIVE (NEGATIVE); OXYCODONE STAT NEGATIVE (NEGATIVE); PROPOXYPHENE STAT NEGATIVE (NEGATIVE); TRICYCLIC ANTIDEPRESSANTS SCRE NEGATIVE (NEGATIVE)
[2019-05-15 19:04] LABS: BAND NEUTROPHILS 2 %; BASOPHILS % (MANUAL) 0 %; EOSINOPHILS % (MANUAL) 2 %; LYMPHOCYTES % (MANUAL) 37 %; MONOCYTES % (MANUAL) 14 %; RBC MORPH NORMAL
[2019-05-15] MEDS ORDERED: oxyCODONE/APAP 5/325MG (PERCOCET 5) TABLET PO ONE (21:00)
[2019-05-15] MEDS ORDERED: MAGNESIUM 1 GM/100 ML IVPB 100 ML IV ONE (21:00)
[2019-05-15] MEDS ORDERED: MAGN400T6 PO (21:04)
[2019-05-15] MEDS ORDERED: ACHD5005 PO (21:04)
[2019-05-15 22:15] VITALS: BP 96/69
== END 2019-05-15 22:15 | disposition home or self-care (01) ==
LOC: EDUNIT# 17:45 → ER 17:46
DX: R07.89 Other chest pain (principal); I42.9 Cardiomyopathy, unspecified; E83.42 Hypomagnesemia; I25.2 Old myocardial infarction; G40.909 Epilepsy, unspecified, not intractable, without status epilepticus; Z77.22 Contact with and (suspected) exposure to environmental tobacco smoke (acute) (chronic); Z90.49 Acquired absence of other specified parts of digestive tract; Z82.49 Family history of ischemic heart disease and other diseases of the circulatory system
CPT/HCPCS: 36415; 71045; 80053; 80306; 83735; 83874; 83880; 84484; 85007; 85027; 85610; 85730; 93005

== ENCOUNTER 2019-06-09 20:06 | Emergency (ER) | payer MEDICAID ==
[~2019-06-09] VITALS: Ht 157.5 cm; Wt 66.7 kg
[~2019-06-09 20:06] MED LIST changes: +ACHD5005 PO; +MAGN400T6 PO
[2019-06-09 20:32] LABS: BASOPHILS # (AUTO) 0.1 10^3/uL (0.0-0.1); BASOPHILS % (AUTO) 1 % (0-10); EOSINOPHILS # (AUTO) 0.2 10^3/uL (0.0-0.3); EOSINOPHILS % (AUTO) 2 % (0-10); HEMATOCRIT 43 % (40-54); HEMOGLOBIN 14.6 G/DL (13.3-17.7); LYMPHOCYTES # (AUTO) 2.4 X 10^3 (1.0-4.0); LYMPHOCYTES % (AUTO) 21 % (12-44); MEAN CORPUSCULAR HEMOGLOBIN 29 PG (25-34); MEAN CORPUSCULAR HGB CONC 34 G/DL (32-36); MEAN CORPUSCULAR VOLUME 86 FL (80-99); MEAN PLATELET VOLUME 8.4 FL (7.4-10.4); MONOCYTES # (AUTO) 1.1 X 10^3 (0.0-1.0); MONOCYTES % (AUTO) 10 % (0-12); NEUTROPHILS # (AUTO) 7.6 X 10^3 (1.8-7.8); NEUTROPHILS % (AUTO) 67 % (42-75); PLATELET COUNT 372 10^3/uL (130-400); RED CELL DISTRIBUTION WIDTH 15.3 % (10.0-14.5); WHITE BLOOD COUNT 11.4 10^3/uL (4.3-11.0)
[2019-06-09 20:42] LABS: INR 0.9 (0.8-1.4)
[2019-06-09 20:48] LABS: ALBUMIN 4.5 GM/DL (3.2-4.5); BILIRUBIN,TOTAL 0.2 MG/DL (0.1-1.0); CALCIUM 9.9 MG/DL (8.5-10.1); CREATININE SERUM 1.61 MG/DL (0.60-1.30); MAGNESIUM 1.7 MG/DL (1.6-2.4); POTASSIUM 4.2 MMOL/L (3.6-5.0); TOTAL PROTEIN 7.9 GM/DL (6.4-8.2)
--- NOTE | 2019-06-09 21:00 | Diagnostic Imaging Report ---
EXAM: CHEST 1 VIEW, AP/PA ONLY INDICATION: Congestive heart failure. COMPARISON: Chest radiograph 05/15/2019. FINDINGS: Cardiomegaly. Normal pulmonary vascularity. No focal pulmonary opacity, pleural effusion or pneumothorax. No acute osseous findings. IMPRESSION: Stable cardiomegaly. Chest otherwise negative. Dictated by: Dictated on workstation # [id number]
--- NOTE | 2019-06-09 22:11 | ED Chest Pain ---
General Chief Complaint: Chest Pain Stated Complaint: DEFIBRILLATOR SHOCK/CP/SOB Nursing Triage Note: Pt amb to room #3 with c/o CP. 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 Nursing Sepsis Screen: No Definite Risk Source: patient, old records Exam Limitations: no limitations History of Present Illness Date Seen by Provider: Jun 09, 2019 Time Seen by Provider: 20:10 Initial Comments This 44-year-old man with severe nonischemic cardiomyopathy presents to the emergency room by private vehicle after his life vest alerted him to seek medical attention immediately. He disabled defibrillation after prompted. No shock was delivered. He has noticed increase in his chronic chest pain and dyspnea in the last few hours. He is a patient of Dr. Barragan and has an appointment in the clinic tomorrow. Allergies and Home Medications Allergies Coded Allergies: No Known Drug Allergies (Unverified , 04/18/19) Home Medications Aspirin 81 Mg Tab.chew, 81 MG PO DAILY@0900 Prescribed by: ELIJAH GAYTAN on 05/13/19 1301 Atorvastatin Calcium 40 Mg Tablet, 40 MG PO HS, (Reported) Furosemide 20 Mg Tablet, 20 MG PO DAILY, (Reported) Guaifenesin 100 Mg/5 Ml Liquid, 10 ML PO Q6H PRN for COUGH, (Reported) Hydrocodone Bit/Acetaminophen 1 Tab Tab, 1 EACH PO Q4-6HR PRN for PAIN-MODERATE Prescribed by: PATRICK CALI on 05/15/192103 Lisinopril 2.5 Mg Tablet, 2.5 MG PO DAILY, (Reported) Magnesium Oxide 400 Mg Tablet, 400 MG PO BID Prescribed by: PATRICK CALI on 05/15/192103 Metoprolol Tartrate 25 Mg Tablet, 6.25 MG PO BID, (Reported) TAKES 1/4 (25MG) TABLET Midodrine HCl 5 Mg Tablet, 5 MG PO TID, (Reported) Patient Home Medication List Home Medication List Reviewed: Yes Review of Systems Review of Systems Constitutional: no symptoms reported EENTM: No Symptoms Reported Respiratory: See HPI Cardiovascular: See HPI Gastrointestinal: No Symptoms Reported Genitourinary: No Symptoms Reported Musculoskeletal: no symptoms reported Skin: no symptoms reported Psychiatric/Neurological: No Symptoms Reported Endocrine: No Symptoms Reported Past Gakhzjf-Psfimg-Ckowlf Hx Past Med/Social Hx: Reviewed and Corrections made Patient Social History Alcohol Use: Past History Number of Drinks Today: 0 Recreational Drug Use: No Drug of Choice: HX: METHAMPHETAMINES, THC. DENIES IV USE OR USE "FOR YEARS" PER PT 05/12/19 Smoking Status: Former Smoker Type Used: Cigarettes Former Smoker, Quit: Apr 09, 2019 2nd Hand Smoke Exposure: Yes Recent Foreign Travel: No Contact w/Someone Who Travel: No Recent Infectious Disease Expo: No Recent Hopitalizations: Yes (04/18 "coded at [facility]") Immunizations Up To Date Tetanus Booster (TDap): More than 5yrs Past Medical History Surgeries: Yes Appendectomy Respiratory: No Cardiac: Yes (life vest) Cardiomyopathy (nonischemic), Heart Attack Neurological: Yes (NO SEIZURE MEDICATIONS ( DEPAKOTE ) FOR 6 MONTHS, PER PT ON 04/18/19) Seizure Disorder Genitourinary: No Gastrointestinal: No Musculoskeletal: No Endocrine: No HEENT: Yes (POOR DENTITION) Cancer: No Psychosocial: No (POLYSUBSTANCE ABUSE HISTORY) Integumentary: No Blood Disorders: No Family Medical History CAD Under 55 Years Old Physical Exam Vital Signs Vital Signs - First Documented 06/09/19 20:08 Temp 36.9 Pulse 116 Resp 25 B/P (MAP) 113/82 (92) Pulse Ox 99 O2 Delivery Room Air Capillary Refill : Less Than 3 Seconds Height, Weight, BMI Height: 5'" Weight: 140lbs. oz. 63.735101bg; 26.00 BMI Method:Stated General Appearance: WD/WN, Anxious HEENT: Normal ENT Inspection Neck: Normal Inspection Respiratory: Lungs Clear, Normal Breath Sounds, No Accessory Muscle Use, No Respiratory Distress Cardiovascular: No Edema, No Murmur, Tachycardia Gastrointestinal: Non Tender, Soft Extremity: Normal Inspection, Non Tender, No Pedal Edema Neurologic/Psychiatric: Alert, Oriented x3, No Motor/Sensory Deficits, staff internist office based only II- XII Norm as Tested, Other (anxious) Skin: Normal Color, Warm/Dry Progress/Results/Core Measures Results/Orders Lab Results Laboratory Tests Test 06/09/19 20:20 Range/Units White Blood Count 11.4 H 4.3-11.0 10^3/uL Red Blood Count 4.96 4.35-5.85 10^6/uL Hemoglobin 14.6 13.3-17.7 G/DL Hematocrit 43 40-54 % Mean Corpuscular Volume 86 80-99 FL Mean Corpuscular Hemoglobin 29 25-34 PG Mean Corpuscular Hemoglobin Concent 34 32-36 G/DL Red Cell Distribution Width 15.3 H 10.0-14.5 % Platelet Count 372 130-400 10^3/uL Mean Platelet Volume 8.4 7.4-10.4 FL Neutrophils (%) (Auto) 67 42-75 % Lymphocytes (%) (Auto) 21 12-44 % Monocytes (%) (Auto) 10 0-12 % Eosinophils (%) (Auto) 2 0-10 % Basophils (%) (Auto) 1 0-10 % Neutrophils # (Auto) 7.6 1.8-7.8 X 10^3 Lymphocytes # (Auto) 2.4 1.0-4.0 X 10^3 Monocytes # (Auto) 1.1 H 0.0-1.0 X 10^3 Eosinophils # (Auto) 0.2 0.0-0.3 10^3/uL Basophils # (Auto) 0.1 0.0-0.1 10^3/uL Prothrombin Time 13.0 12.2-14.7 SEC INR Comment 0.9 0.8-1.4 Activated Partial Thromboplast Time 24 24-35 SEC Sodium Level 140 135-145 MMOL/L Potassium Level 4.2 3.6-5.0 MMOL/L Chloride Level 105 98-107 MMOL/L Carbon Dioxide Level 18 L 21-32 MMOL/L Anion Gap 17 H 5-14 MMOL/L Blood Urea Nitrogen 28 H 7-18 MG/DL Creatinine 1.61 H 0.60-1.30 MG/DL Estimat Glomerular Filtration Rate 46 BUN/Creatinine Ratio 17 Glucose Level 123 H 70-105 MG/DL Calcium Level 9.9 8.5-10.1 MG/DL Corrected Calcium 9.5 8.5-10.1 MG/DL Magnesium Level 1.7 1.6-2.4 MG/DL Total Bilirubin 0.2 0.1-1.0 MG/DL Aspartate Amino Transf (AST/SGOT) 19 5-34 U/L Alanine Aminotransferase (ALT/SGPT) 24 0-55 U/L Alkaline Phosphatase 90 40-136 U/L Myoglobin 74.1 10.0-92.0 NG/ML Troponin I 0.054 H <0.028 NG/ML B-Type Natriuretic Peptide 474.7 H <100.0 PG/ML Total Protein 7.9 6.4-8.2 GM/DL Albumin 4.5 3.2-4.5 GM/DL Serum Alcohol 10 <10 MG/DL My Orders Orders - PATRICK SALMERON MD Cbc With Automated Diff (06/09/19:) Magnesium (06/09/19:) Chest 1 View, Ap/Pa Only (06/09/19:) Ekg Tracing (06/09/19:) Comprehensive Metabolic Panel (06/09/19:) Myoglobin Serum (06/09/19:) Protime With Inr (06/09/19:) Partial Thromboplastin Time (06/09/19:) O2 (06/09/19:) Monitor-Rhythm Ecg Trace Only (06/09/19:) Ed Iv/Invasive Line Start (06/09/19:) BNP (06/09/19:) Troponin I (06/09/19:) Alcohol (06/09/19 20:20) Vital Signs/I&O 06/09/19 06/09/19 06/09/19 20:08 20:08 22:27 Temp 36.9 Pulse 116 110 Resp 25 22 B/P (MAP) 113/82 (92) 111/77 Pulse Ox 99 92 O2 Delivery Room Air Room Air Room Air Blood Pressure Mean: 92 POS Progress Progress Note : Progress Note Workup was unremarkable. Patient has chronic elevation of troponin and creatinine which are unchanged. Life vest device cannot be interrogated because the screen is cracked which has impaired some of its functions. The company welding equipment sales representative will address this issue and assisted the patient with repair of the device. Case was discussed with Dr. Ibanez. He explained the device was probably receiving artifact. Outpatient follow-up tomorrow at the previously scheduled appointment is appropriate. Patient admits his increase in chest pain and shortness of breath may have been related to anxiety he was feeling about the alert from the device. Patient is feeling at baseline at the time of discharge and agreeable to outpatient follow-up. Initial ECG Impression Date: Jun 09, 2019 Initial ECG Impression Time: 20:14 Initial ECG Rate: 116 Initial ECG Rhythm: S.Tach Comment Sinus tachycardia with no acute ST elevation or depression. Chronic left bundle branch block. No acute changes from prior by comparison. Diagnostic Imaging Diagonstic Imaging: Xray Plain Films/CT/US/NM/MRI: chest Comments NAME: IVÁN JEFFERY [facility] REC#: [id number] PT STATUS: REG ER : 1975 PHYSICIAN: PATRICK SALMERON MD ADMIT DATE: 06/09/19/ER Signed Date of Exam:06/09/19 CHEST 1 VIEW, AP/PA ONLY EXAM: CHEST 1 VIEW, AP/PA ONLY INDICATION: Congestive heart failure. COMPARISON: Chest radiograph 05/15/2019. FINDINGS: Cardiomegaly. Normal pulmonary vascularity. No focal pulmonary opacity, pleural effusion or pneumothorax. No acute osseous findings. IMPRESSION: Stable cardiomegaly. Chest otherwise negative. Dictated by: Dictated on workstation # [id number] Dict: 06/09/192057 Trans: 06/09/192210 [facility] [id number] Interpreted by: FOX COOK MD Electronically signed by: FOX COOK MD 06/09/192210 Departure Impression Primary Impression: Nonischemic cardiomyopathy Additional Impression: Chronic chest pain Disposition: 01 HOME, SELF-CARE Condition: Improved Departure-Patient Inst. Decision time for Depature: 22:10 Referrals: [facility] [place] ([place]P/Family) Primary Care Physician Patient Instructions: Cardiomyopathy (DC) Add. Discharge Instructions: Continue your medications as previously prescribed. Keep your appointment with Dr. Barragan tomorrow. Return to the emergency room if you have any further problems or concerns. All discharge instructions reviewed with patient and/or family. Voiced understanding. Copy Copies To 1: Josiah BARRAGAN MD Copies To 2: DUONG PERKINS JOSHUA T MD Jun 09, 2019 22:11 POS
[2019-06-09 22:27] VITALS: BP 111/77
== END 2019-06-09 22:27 | disposition home or self-care (01) ==
LOC: EDUNIT# 20:06 → ER 20:07
DX: I42.8 Other cardiomyopathies (principal); I25.2 Old myocardial infarction; G40.909 Epilepsy, unspecified, not intractable, without status epilepticus; Z79.82 Long term (current) use of aspirin; Z87.891 Personal history of nicotine dependence; Z90.49 Acquired absence of other specified parts of digestive tract
CPT/HCPCS: 36415; 71045; 80053; 80320; 83735; 83874; 83880; 84484; 85025; 85610; 85730; 93005; 93041

== ENCOUNTER 2019-11-19 07:47 | Inpatient (IN) | payer MEDICAID ==
[2019-11-19] VITALS (12 sets, daily range): BP systolic 54–127; BP diastolic 42–100
[~2019-11-19] VITALS: Ht 162 cm; Wt 79.3 kg
[~2019-11-19 07:47] MED LIST changes: -MAGN400T6 PO; +MAGN400T8 PO; -MIDO5TAB PO; +MIDO5TAB3 PO
[2019-11-19] MEDS ORDERED: ASPIRIN 81 MG CHEW (CHILDREN'S ASA) PO ONE (08:00)
[2019-11-19] MEDS ORDERED: LORazepam INJ 2 MG/ML (ATIVAN) VIAL IVP ONE (08:00)
[2019-11-19 08:23] LABS: BASOPHILS # (AUTO) 0.1 10^3/uL (0.0-0.1); BASOPHILS % (AUTO) 0 % (0-10); EOSINOPHILS # (AUTO) 0.1 10^3/uL (0.0-0.3); EOSINOPHILS % (AUTO) 1 % (0-10); HEMATOCRIT 39 % (40-54); HEMOGLOBIN 12.8 G/DL (13.3-17.7); LYMPHOCYTES # (AUTO) 1.1 X 10^3 (1.0-4.0); LYMPHOCYTES % (AUTO) 7 % (12-44); MEAN CORPUSCULAR HEMOGLOBIN 30 PG (25-34); MEAN CORPUSCULAR HGB CONC 33 G/DL (32-36); MEAN CORPUSCULAR VOLUME 92 FL (80-99); MEAN PLATELET VOLUME 8.9 FL (7.4-10.4); MONOCYTES # (AUTO) 1.4 X 10^3 (0.0-1.0); MONOCYTES % (AUTO) 9 % (0-12); NEUTROPHILS # (AUTO) 13.9 X 10^3 (1.8-7.8); NEUTROPHILS % (AUTO) 84 % (42-75); PLATELET COUNT 356 10^3/uL (130-400); RED CELL DISTRIBUTION WIDTH 15.6 % (10.0-14.5); WHITE BLOOD COUNT 16.6 10^3/uL (4.3-11.0)
[2019-11-19 08:30] LABS: BILIRUBIN,URINE NEGATIVE (NEGATIVE); CLARITY,URINE CLEAR; COLOR,URINE YELLOW; GLUCOSE, URINE (UA) NEGATIVE (NEGATIVE); KETONES,URINE NEGATIVE (NEGATIVE); LEUKOCYTE ESTERASE ,URINE NEGATIVE (NEGATIVE); NITRITE,URINE NEGATIVE (NEGATIVE); PH,URINE 5.5 (5-9); PROTEIN,URINE 3+ (NEGATIVE)
[2019-11-19 08:33] LABS: ALBUMIN 3.4 GM/DL (3.2-4.5); POTASSIUM 5.2 MMOL/L (3.6-5.0)
[2019-11-19 08:34] LABS: CALCIUM 8.6 MG/DL (8.5-10.1)
[2019-11-19 08:35] LABS: TOTAL PROTEIN 6.8 GM/DL (6.4-8.2)
[2019-11-19 08:37] LABS: BILIRUBIN,TOTAL 0.6 MG/DL (0.1-1.0)
[2019-11-19 08:39] LABS: CREATININE SERUM 1.41 MG/DL (0.60-1.30)
[2019-11-19 08:41] LABS: BACTERIA,URINE TRACE /HPF; RBC,URINE RARE /HPF; SQUAMOUS EPITHELIAL CELL,UR RARE /HPF; WBC,URINE RARE /HPF
[2019-11-19 08:42] LABS: MAGNESIUM 1.7 MG/DL (1.6-2.4)
[2019-11-19 08:43] LABS: INR 1.1 (0.8-1.4); PROTHROMBIN TIME PATIENT 14.5 SEC (12.2-14.7)
[2019-11-19 08:55] LABS: ANISOCYTOSIS SLIGHT; BAND NEUTROPHILS 5 %; BASOPHILS % (MANUAL) 1 %; EOSINOPHILS % (MANUAL) 0 %; LYMPHOCYTES % (MANUAL) 6 %; MONOCYTES % (MANUAL) 5 %; NEUTROPHILS % (MANUAL) 83 %
[2019-11-19] MEDS ORDERED: NS IV 500 ML 500 ML IV ONE (08:59)
--- NOTE | 2019-11-19 09:06 | Diagnostic Imaging Report ---
CHEST 1 VIEW, AP/PA ONLY Indication: Shortness of air and congestive heart failure Comparison: 06/09/2019 Findings: Marked enlargement of the cardiac silhouette is present. Groundglass opacities have developed in the bilateral perihilar region. No pleural effusion or pneumothorax. Impression: 1. Imaging features would support congestive heart failure as there is cardiomegaly with probable pulmonary edema. Dictated by: Dictated on workstation # [id number]
--- NOTE | 2019-11-19 09:10 | ED Chest Pain ---
General Chief Complaint: Psych/Social Disorder Stated Complaint: SOA Nursing Triage Note: ARRIVED VIA AMB TO ROOM 08. PT WITH HIGH ANXIETY, HYPERVENTILATING, STATES HE RAN OUT OF HIS HOUSE BECAUSE HIS HAS MADE HIM STAY THERE FOR FOUR DAYS GIVING HIM MEDS THAT ARE NOT HIS. PT REFUSES TO WEAR MASK. Nursing Sepsis Screen: No Definite Risk Source: patient Exam Limitations: no limitations History of Present Illness Date Seen by Provider: November 19, 2019 Time Seen by Provider: 07:55 Initial Comments Here with report of chest pain left-sided sharp and persistent for months. Was due to have a pacemaker placed but was unable to because of elective procedure during - crisis. Had life but that has subsequently sent back because he ran out of time with that. States that his has been trying to self medicate him because he is out of all of his medicines. He reports increased swelling and significantly increased shortness of breath and is quite anxious on arrival. Initial O2 sat at 99 room air. She was begging for oxygen and a fan. 2 L O2 a pplied via nasal cannula. Patient admits to panic disorder and states that this may be part of the problem to. Denies nausea, vomiting or diarrhea. Denies fever or chills. Timing/Duration: 4-5 days Severity/Quality: moderate, sharp Location: central (left-sided) Radiation: no radiation Activities at Onset: none Prior CP/Workup: cardiac cath Modifying Factors: improves with rest ASA po GAUGER CHIEF: No NTG SL GAUGER CHIEF: No Associated Symptoms: No abdominal pain, No back pain; diaphoresis; No fatigue, No fever/chills, No nausea/vomiting; shortness of breath, weakness Allergies and Home Medications Allergies Coded Allergies: No Known Drug Allergies (Unverified , 04/18/19) Home Medications Aspirin 81 Mg Tab.chew, 81 MG PO DAILY@0900 Prescribed by: ELIJAH GAYTAN on 05/13/19 1301 Atorvastatin Calcium 40 Mg Tablet, 40 MG PO HS, (Reported) Furosemide 20 Mg Tablet, 20 MG PO DAILY, (Reported) Guaifenesin 100 Mg/5 Ml Liquid, 10 ML PO Q6H PRN for COUGH, (Reported) Hydrocodone Bit/Acetaminophen 1 Tab Tab, 1 EACH PO Q4-6HR PRN for PAIN-MODERATE Prescribed by: PATRICK CALI on 05/15/192103 Lisinopril 2.5 Mg Tablet, 2.5 MG PO DAILY, (Reported) Magnesium Oxide 400 Mg Tablet, 400 MG PO BID Prescribed by: PATRICK CALI on 05/15/192103 Metoprolol Tartrate 25 Mg Tablet, 6.25 MG PO BID, (Reported) TAKES 1/4 (25MG) TABLET Midodrine HCl 5 Mg Tablet, 5 MG PO TID, (Reported) Patient Home Medication List Home Medication List Reviewed: Yes Review of Systems Review of Systems Constitutional: see HPI; No chills, No fever EENTM: No Symptoms Reported Respiratory: See HPI; Denies Cough; Shortness of Air, SOA at Rest Cardiovascular: Chest Pain, Edema Gastrointestinal: Denies Abdominal Pain, Denies Nausea, Denies Vomiting Genitourinary: No Symptoms Reported Musculoskeletal: no symptoms reported Skin: no symptoms reported Psychiatric/Neurological: See HPI, Anxiety, Emotional Problems Endocrine: No Symptoms Reported All Other Systems Reviewed Negative Unless Noted: Yes Past Qergtfk-Kqiimv-Hothhd Hx Past Med/Social Hx: Reviewed Nursing Past Med/Soc Hx Patient Social History Alcohol Use: Denies Use Recreational Drug Use: No Drug of Choice: HX: METHAMPHETAMINES, THC. DENIES IV USE OR USE "FOR YEARS" PER PT 05/12/19 Type Used: Cigarettes Former Smoker, Quit: Apr 09, 2019 2nd Hand Smoke Exposure: Yes Recent Foreign Travel: No Contact w/Someone Who Travel: No Recent Infectious Disease Expo: No Recent Hopitalizations: Yes Immunizations Up To Date Tetanus Booster (TDap): More than 5yrs Past Medical History Surgeries: Yes Appendectomy Respiratory: No Cardiac: Yes (life vest) Cardiomyopathy, Heart Attack Neurological: Yes (NO SEIZURE MEDICATIONS ( DEPAKOTE ) FOR 6 MONTHS, PER PT ON 04/18/19) Seizure Disorder Genitourinary: No Gastrointestinal: No Musculoskeletal: No Endocrine: No HEENT: Yes (POOR DENTITION) Cancer: No Psychosocial: No (POLYSUBSTANCE ABUSE HISTORY) Integumentary: No Blood Disorders: No Family Medical History Reviewed Nursing Family Hx CAD Under 55 Years Old Physical Exam Vital Signs Vital Signs - First Documented 11/19/19 07:50 Temp 37.0 Pulse 148 Resp 22 B/P (MAP) 124/87 (99) Pulse Ox 92 O2 Delivery Room Air Capillary Refill : Less Than 3 Seconds Height, Weight, BMI Height: 5'" Weight: 140lbs. oz. 63.651454zc; 29.00 BMI Method:Stated General Appearance: No Apparent Distress, WD/WN, Moderate Distress HEENT: PERRL/EOMI, Pharynx Normal Neck: Normal Inspection, Non Tender, Supple Respiratory: Lungs Clear, Normal Breath Sounds Cardiovascular: No Murmur, Tachycardia Gastrointestinal: Non Tender, Soft Extremity: Normal Inspection, Normal Range of Motion, Pedal Edema (mild bilateral) Neurologic/Psychiatric: Alert, Oriented x3 Skin: Normal Color, Warm/Dry Progress/Results/Core Measures Results/Orders Lab Results Laboratory Tests Test 11/19/19 08:14 11/19/19 08:22 Range/Units White Blood Count 16.6 H 4.3-11.0 10^3/uL Red Blood Count 4.22 L 4.35-5.85 10^6/uL Hemoglobin 12.8 L 13.3-17.7 G/DL Hematocrit 39 L 40-54 % Mean Corpuscular Volume 92 80-99 FL Mean Corpuscular Hemoglobin 30 25-34 PG Mean Corpuscular Hemoglobin Concent 33 32-36 G/DL Red Cell Distribution Width 15.6 H 10.0-14.5 % Platelet Count 356 130-400 10^3/uL Mean Platelet Volume 8.9 7.4-10.4 FL Neutrophils (%) (Auto) 84 H 42-75 % Lymphocytes (%) (Auto) 7 L 12-44 % Monocytes (%) (Auto) 9 0-12 % Eosinophils (%) (Auto) 1 0-10 % Basophils (%) (Auto) 0 0-10 % Neutrophils # (Auto) 13.9 H 1.8-7.8 X 10^3 Lymphocytes # (Auto) 1.1 1.0-4.0 X 10^3 Monocytes # (Auto) 1.4 H 0.0-1.0 X 10^3 Eosinophils # (Auto) 0.1 0.0-0.3 10^3/uL Basophils # (Auto) 0.1 0.0-0.1 10^3/uL Neutrophils % (Manual) 83 % Lymphocytes % (Manual) 6 % Monocytes % (Manual) 5 % Eosinophils % (Manual) 0 % Basophils % (Manual) 1 % Band Neutrophils 5 % Anisocytosis SLIGHT Prothrombin Time 14.5 12.2-14.7 SEC INR Comment 1.1 0.8-1.4 Activated Partial Thromboplast Time 34 24-35 SEC D-Dimer 1.30 H 0.00-0.49 UG/ML Sodium Level 133 L 135-145 MMOL/L Potassium Level 5.2 H 3.6-5.0 MMOL/L Chloride Level 104 98-107 MMOL/L Carbon Dioxide Level 16 L 21-32 MMOL/L Anion Gap 13 5-14 MMOL/L Blood Urea Nitrogen 31 H 7-18 MG/DL Creatinine 1.41 H 0.60-1.30 MG/DL Estimat Glomerular Filtration Rate 54 BUN/Creatinine Ratio 22 Glucose Level 145 H 70-105 MG/DL Calcium Level 8.6 8.5-10.1 MG/DL Corrected Calcium 9.1 8.5-10.1 MG/DL Magnesium Level 1.7 1.6-2.4 MG/DL Total Bilirubin 0.6 0.1-1.0 MG/DL Aspartate Amino Transf (AST/SGOT) 19 5-34 U/L Alanine Aminotransferase (ALT/SGPT) 18 0-55 U/L Alkaline Phosphatase 89 40-136 U/L Myoglobin 60.9 10.0-92.0 NG/ML Troponin I 0.144 H <0.028 NG/ML B-Type Natriuretic Peptide 1735.1 H <100.0 PG/ML Total Protein 6.8 6.4-8.2 GM/DL Albumin 3.4 3.2-4.5 GM/DL Urine Color YELLOW Urine Clarity CLEAR Urine pH 5.5 5-9 Urine Specific Flushing >=1.030 1.016-1.022 Urine Protein 3+ H NEGATIVE Urine Glucose (UA) NEGATIVE NEGATIVE Urine Ketones NEGATIVE NEGATIVE Urine Nitrite NEGATIVE NEGATIVE Urine Bilirubin NEGATIVE NEGATIVE Urine Urobilinogen 0.2 < = 1.0 MG/DL Urine Leukocyte Esterase NEGATIVE NEGATIVE Urine RBC (Auto) NEGATIVE NEGATIVE Urine RBC RARE /HPF Urine WBC RARE /HPF Urine Squamous Epithelial Cells RARE /HPF Urine Crystals NONE /LPF Urine Bacteria TRACE /HPF Urine Casts NONE /LPF Urine Mucus NEGATIVE /LPF Urine Culture Indicated NO Urine Opiates Screen NEGATIVE NEGATIVE Urine Oxycodone Screen POSITIVE H NEGATIVE Urine Methadone Screen NEGATIVE NEGATIVE Urine Propoxyphene Screen NEGATIVE NEGATIVE Urine Barbiturates Screen NEGATIVE NEGATIVE Ur Tricyclic Antidepressants Screen NEGATIVE NEGATIVE Urine Phencyclidine Screen NEGATIVE NEGATIVE Urine Amphetamines Screen POSITIVE H NEGATIVE Urine Methamphetamines Screen POSITIVE H NEGATIVE Urine Benzodiazepines Screen NEGATIVE NEGATIVE Urine Cocaine Screen NEGATIVE NEGATIVE Urine Cannabinoids Screen NEGATIVE NEGATIVE My Orders Orders - IVDYA BARON MD Cbc With Automated Diff (11/19/19 07:57) Magnesium (11/19/19 07:57) Chest 1 View, Ap/Pa Only (11/19/19 07:57) Comprehensive Metabolic Panel (11/19/19 07:57) Myoglobin Serum (11/19/19 07:57) Protime With Inr (11/19/19 07:57) Partial Thromboplastin Time (11/19/19 07:57) O2 (11/19/19 07:57) Monitor-Rhythm Ecg Trace Only (11/19/19 07:57) Lipid Panel (11/20/19 06:00) Ed Iv/Invasive Line Start (11/19/19 07:57) BNP (11/19/19 07:57) Troponin I (11/19/19 07:57) Aspirin Chewable Tablet (Baby Aspirin Ch (11/19/19 08:00) Fibrin Degradation Products (11/19/19 07:57) Lorazepam Injection (Ativan Injection) (11/19/19 08:00) Manual Differential (11/19/19 08:14) Ua Culture If Indicated (11/19/19 08:25) Ekg Tracing (11/19/19 08:37) Ct Angio Chest W (11/19/19 08:59) Ns Iv 500 Ml (Sodium Chloride 0.9%) (11/19/19 08:59) Iohexol Injection (Omnipaque 350 Mg/Ml 1 (11/19/19 09:15) Received Contrast (Hold Metformin- Contr (11/19/19 09:15) Ns (Ivpb) (Sodium Chloride 0.9% Ivpb Bag (11/19/19 09:15) Drug Screen Stat (Urine) (11/19/19 09:52) Furosemide Injection (Lasix Injection) (11/19/19 09:58) Lactic Acid Analyzer (11/19/19 11:09) Blood Culture (11/19/19 11:09) Azithromycin Injection (Zithromax Inject (11/19/19 11:09) Ceftriaxone For Iv Use (Rocephin For I (11/19/19 11:09) Medications Given in ED Current Medications Medications Dose Ordered Sig/Sarah Route Start Time Stop Time Status Last Admin Dose Admin Aspirin 324 mg ONCE ONCE PO 11/19/19 08:00 11/19/19 08:01 DC 11/19/19 08:16 324 MG Lorazepam 0.5 mg ONCE ONCE IVP 11/19/19 08:00 11/19/19 08:01 DC 11/19/19 08:16 0.5 MG Sodium Chloride 500 ml @ 0 mls/hr Q0M ONCE IV 11/19/19 08:59 11/19/19 09:00 DC 11/19/19 09:54 0 MLS/HR Vital Signs/I&O 11/19/19 07:50 Temp 37.0 Pulse 148 Resp 22 B/P (MAP) 124/87 (99) Pulse Ox 92 O2 Delivery Room Air Blood Pressure Mean: 99 Progress Progress Note : Progress Note Seen and evaluated. IV, labs, EKG and chest x-ray ordered. ASA 324 mg by mouth ordered. Ativan 0.5 mg IV ordered. Monitor patient. 1115: Patient did receive CT angiogram of the chest due to elevated d-dimer and those results are noted. Lasix 40 mg IV given after 500 mL bolus of normal saline to clear contrast and to begin to treat heart failure. Findings most consistent with heart failure although patient does have elevated white count. I did discuss with him regarding methamphetamine use and he is unsure how he could be positive for that somebody may have given him something. He is adamant that he is not using any more. Does admit to taking family members Percocet for pain one tablet only. Patient states he really wants to get the pacemaker. He is thinking agreeable to admission. I did discuss the case with Dr. Barragan, patient's primary traffic workforce representative. He will see the patient in the emergency department. I did discuss the case with Dr. Velasquez, on-call for [facility] and she accepts patient for admission. After discussing all the results, we will go ahead and initiate blood cultures and lactic acid to ensure that there is not an underlying pneumonia or bacterial illness especially in light that he may be getting a pacemaker. Rocephin and Zithromax protocol initiated afterwards for possible pneumonia. All findings concerns were discussed with the patient who agrees with the plan. 1119: Cardiology here evaluating patient. Initial ECG Impression Date: November 19, 2019 Initial ECG Impression Time: 08:29 Initial ECG Rate: 133 Initial ECG Rhythm: S.Tach Comment Sinus tachycardia with left bundle branch block. No evidence of ST elevation MA. Similar to previous of 06/09/19. Interpreted by me. Diagnostic Imaging Diagonstic Imaging: CT Plain Films/CT/US/NM/MRI: chest Comments [facility], [place] NAME: IVÁN JEFFERY [facility] REC#: [id number] PT STATUS: REG ER : 1975 PHYSICIAN: VIDYA BARON MD ADMIT DATE: 11/19/19/ER Draft Date of Exam:11/19/19 CHEST 1 VIEW, AP/PA ONLY CHEST 1 VIEW, AP/PA ONLY Indication: Shortness of air and congestive heart failure Comparison: 06/09/2019 Findings: Marked enlargement of the cardiac silhouette is present. Groundglass opacities have developed in the bilateral perihilar region. No pleural effusion or pneumothorax. Impression: 1. Imaging features would support congestive heart failure as there is cardiomegaly with probable pulmonary edema. Dictated on workstation # [id number] Dict: 11/19/19 0859 Trans: 11/19/19 0905 NATALIE [id number] Interpreted by: NOY BOONE MD Electronically signed by: Diagonstic Imaging: CT Plain Films/CT/US/NM/MRI: chest Comments [facility] [place] NAME: IVÁN JEFFERY [facility] REC#: [id number] PT STATUS: REG ER : 1975 PHYSICIAN: VIDYA BARON MD ADMIT DATE: 11/19/19/ER Draft Date of Exam:11/19/19 CT ANGIO CHEST W PROCEDURE: CT angiography Chest TECHNIQUE: After intravenous administration of contrast, thin section axial CT angiography of the chest was performed. 3D MIP reconstructions were made. All CT scans use one or more of the following dose optimizing techniques: automated exposure control, MA and/or KvP adjustment based on a patient size and exam type, or iterative reconstruction. INDICATION: Shortness of breath and cough. COMPARISON: Chest radiograph of earlier same day. FINDINGS: Vasculature: No pulmonary emboli. No CT evidence of pulmonary hypertension or right ventricular strain. Contrast does not opacify the aorta and therefore assessment for aortic dissection is not possible. No features of mediastinal hemorrhage. Heart and mediastinum: Visualized thyroid is normal. No supraclavicular or axillary lymphadenopathy. Enlarged mediastinal and hilar lymph nodes are present. The largest mediastinal lymph node is in the AP position measuring 1.2 cm. Right hilar lymph node measures 1.1 cm. Marked enlargement of the heart is predominantly within the left ventricle which is dilated. Left atrium is not substantially dilated on this exam. Pleura: No pleural effusion or pneumothorax. Lungs and airway: Trachea is decompressed due to expiratory imaging. Groundglass opacities with interlobular thickening involve all 5 lobes but are more advanced on the right. Upper abdomen: Allowing for the phase of contrast, no acute abnormality in the upper abdomen is seen. Musculoskeletal: No concerning osseous lesion. IMPRESSION: 1. No pulmonary emboli. 2. Marked cardiomegaly with marked dilation of the left ventricle may represent dilated cardiomyopathy. Cardiology consultation may be warranted if not previously worked up 3. Asymmetric ground glass pulmonary opacities favor asymmetric pulmonary edema. Atypical infection and/or pulmonary hemorrhage could also give this imaging appearance, but pulmonary edema remains the primary consideration. 4. Mildly enlarged mediastinal and hilar lymph nodes are likely reactive in nature and can be seen in the setting of congestive heart failure. Dictated on workstation # [id number] Dict: 11/19/19 0940 Trans: 11/19/19 0948 [id number] Interpreted by: NOY BOONE MD Electronically signed by: Reviewed: Reviewed by Me Departure Communication (Admissions) Time/Spoke to Admitting Phy: 11:08 Time/Spoke to Consulting Phy: 11:05 Impression Primary Impression: CHF (congestive heart failure) Qualified Codes: I50.9 - Heart failure, unspecified Additional Impression: Left lower lobe pneumonia Qualified Codes: J18.1 - Lobar pneumonia, unspecified organism Disposition: ADMITTED INPATIENT Condition: Stable Admissions Decision to Admit Reason: Admit from ER (General) Decision to Admit/Date: November 19, 2019 Time/Decision to Admit Time: 11:05 Departure-Patient Inst. Referrals: [facility] (PCP/Family) Primary Care Physician VIDYA BARON MD November 19, 2019 09:09
[2019-11-19] MEDS ORDERED: NS 100 ML (IVPB) BAG IV ONE (09:15)
[2019-11-19] MEDS ORDERED: IOHEXOL 350 MG/ML 100 ML (OMNIPAQUE 350) VIAL IV ONE (09:15)
[2019-11-19] MEDS ORDERED: HOLD METFORMIN - RECEIVED CONTRAST 20 ML VIAL IV SCH (09:15)
--- NOTE | 2019-11-19 09:48 | Diagnostic Imaging Report ---
PROCEDURE: CT angiography Chest TECHNIQUE: After intravenous administration of contrast, thin section axial CT angiography of the chest was performed. 3D MIP reconstructions were made. All CT scans use one or more of the following dose optimizing techniques: automated exposure control, MA and/or KvP adjustment based on a patient size and exam type, or iterative reconstruction. INDICATION: Shortness of breath and cough. COMPARISON: Chest radiograph of earlier same day. FINDINGS: Vasculature: No pulmonary emboli. No CT evidence of pulmonary hypertension or right ventricular strain. Contrast does not opacify the aorta and therefore assessment for aortic dissection is not possible. No features of mediastinal hemorrhage. Heart and mediastinum: Visualized thyroid is normal. No supraclavicular or axillary lymphadenopathy. Enlarged mediastinal and hilar lymph nodes are present. The largest mediastinal lymph node is in the AP position measuring 1.2 cm. Right hilar lymph node measures 1.1 cm. Marked enlargement of the heart is predominantly within the left ventricle which is dilated. Left atrium is not substantially dilated on this exam. Pleura: No pleural effusion or pneumothorax. Lungs and airway: Trachea is decompressed due to expiratory imaging. Groundglass opacities with interlobular thickening involve all 5 lobes but are more advanced on the right. Upper abdomen: Allowing for the phase of contrast, no acute abnormality in the upper abdomen is seen. Musculoskeletal: No concerning osseous lesion. IMPRESSION: 1. No pulmonary emboli. 2. Marked cardiomegaly with marked dilation of the left ventricle may represent dilated cardiomyopathy. Cardiology consultation may be warranted if not previously worked up 3. Asymmetric ground glass pulmonary opacities favor asymmetric pulmonary edema. Atypical infection and/or pulmonary hemorrhage could also give this imaging appearance, but pulmonary edema remains the primary consideration. 4. Mildly enlarged mediastinal and hilar lymph nodes are likely reactive in nature and can be seen in the setting of congestive heart failure. Dictated by: Dictated on workstation # [id number]
[2019-11-19] MEDS ORDERED: FUROSEMIDE 40 MG/4 ML INJ (LASIX) IV STA (09:58)
[2019-11-19 10:08] LABS: AMPHETAMINE SCREEN, URINE POSITIVE (NEGATIVE); BARBITURATE SCREEN URINE NEGATIVE (NEGATIVE); BENZODIAZEPINES SCREEN URINE NEGATIVE (NEGATIVE); CANNABINOID SCREEN, URINE NEGATIVE (NEGATIVE); COCAINE SCREEN URINE NEGATIVE (NEGATIVE); METHADONE STAT NEGATIVE (NEGATIVE); METHAMPHETAMINE SCREEN URINE S POSITIVE (NEGATIVE); OPIATE SCREEN URINE NEGATIVE (NEGATIVE); OXYCODONE STAT POSITIVE (NEGATIVE); PROPOXYPHENE STAT NEGATIVE (NEGATIVE); TRICYCLIC ANTIDEPRESSANTS SCRE NEGATIVE (NEGATIVE)
[2019-11-19] MEDS ORDERED: AZITHROMYCIN INJECTION 500 MG in NS (IVPB) 250 ML IV STA (11:09)
[2019-11-19] MEDS ORDERED: cefTRIAXone FOR IV USE 1,000 MG in WATER (STERILE) FOR INJECTION 10 ML IV STA (11:09)
[2019-11-19] MEDS ORDERED: WATER (STERILE) FOR INJECTION 10 ML ONE (11:39)
[2019-11-19] MEDS ORDERED: NS (IVPB) 250 ML ONE (11:40)
[2019-11-19] MEDS ORDERED: cefTRIAXone 1,000 MG IV (ROCEPHIN) VIAL ONE (11:40)
[2019-11-19] MEDS ORDERED: AZITHROMYCIN 500 MG (ZITHROMAX) VIAL ONE (11:40)
[2019-11-19] MEDS ORDERED: LORazepam INJ 2 MG/ML (ATIVAN) VIAL ONE (12:13)
[2019-11-19] MEDS ORDERED: LORazepam INJ 2 MG/ML (ATIVAN) VIAL IVP PRN (12:30)
--- OUTSIDE RECORDS SUMMARY | 2019-11-19 12:56 | XMS REPORT ---
Author Author Rip Mcmahan Doctor Organization [facility] Address Unknown Phone Unavailable Care Team Providers Care Electrical Installer Name Role Phone Migration, Doctor Unavailable Unavailable PROBLEMS Type Condition ICD9-CM Code [id number] Code Onset Dates Condition S tatus SNOMED Code Problem Unspecified disorder of skin and subcutaneous tissue 709.9 Active 08344421 ALLERGIES Substance Reaction Event Type Date Status Aspirin Unknown Drug Allergy Sep, Active ENCOUNTERS Encounter Location Date Diagnosis [facility] [address] [facility] [id number] [address] [place] [address] [id number] Sep, Dental examination Z01.20 [facility] [id number] [place] [id number] Sep, [facility] [id number] [place] [phone] Aug, [facility] [id number] [place] [phone] Aug, [facility] [id number] [place] [phone] Aug, [facility] [address] [facility] [id number] [address] [place] [phone] May, IMMUNIZATIONS No Known Immunizations SOCIAL HISTORY Never Assessed REASON FOR VISIT EMR-[facility] [place] PLAN OF CARE VITAL SIGNS MEDICATIONS No Known Medications RESULTS No Results PROCEDURES No Known procedures INSTRUCTIONS MEDICATIONS ADMINISTERED No Known Medications
[2019-11-19] MEDS ORDERED: CATHETER FLUSH 10 ML SYR IV PRN (13:00)
[2019-11-19] MEDS ORDERED: LORazepam INJ 2 MG/ML (ATIVAN) VIAL IV PRN (13:00)
[2019-11-19] MEDS ORDERED: DexMEDEtomidine 250 ML DRIP 250 ML IV ONE (13:12)
[2019-11-19 13:23] LABS: ABG BASE EXCESS -3.7 MMOL/L (-2.5-2.5); ABG OXYGEN SATURATION 86 % (94-100); ABG PCO2 40 MMHG (35-45); ABG PO2 57 MMHG (79-93); ABG TCO2 22.5 MMOL/L (21.0-31.0)
[2019-11-19 13:26] LABS: ABG PH 7.34 (7.37-7.43)
[2019-11-19 13:27] LABS: ALLENS TEST YES-POS; INSPIRED O2 15; PATIENT TEMP 36.2; VENTILATOR NO
[2019-11-19] MEDS ORDERED: LORazepam INJ 2 MG/ML (ATIVAN) VIAL IVP NR (13:30)
[2019-11-19] MEDS ORDERED: PROPOFOL DRIP (ICU) 100 ML IV ONE (13:42)
[2019-11-19] MEDS ORDERED: NOREPINEPHRINE 4 MG/250 ML 250 ML IV ONE (13:42)
[2019-11-19] MEDS ORDERED: NS IV 1000 ML 1,000 ML ONE (13:42)
[2019-11-19] MEDS: NOREPINEPHRINE 4 MG/250 ML 250 ML IV SCH ×3 (13:45→19:44)
--- NOTE | 2019-11-19 14:17 | Anesthesia-Procedure Note ---
Procedures/Interventions Procedure Start/Stop/Diagnosis Date of Procedure: November 19, 2019 Start Time: 13:48 Stop Time: 14:10 Intubation Reason Intubation/Diagnosis: Resp failure RSI: Yes 100% pre-Ox, [id number]: Yes Intubation Method: orotracheal Videoscope used: Yes Grade View: 1 Medications: Propofol (120), Rocuronium (50), Succinylcholine (80), Versed (3) Mask Ventilation: positive Positive End Tide CO2: Yes Breath Sounds after Intubation: bilateral-equal ETT Securred @ (cm): 22 Intubated with ease: Yes Intubation Complications: no complications Post Intubation Xray-done: Yes Progress/Xray Impression: awaiting reading Post Procedure Intubated with ease. Care to DIRECTOR MORTGAGE. Arterial Line Arterial Line Catheter: 20G Type: Radial Location: Left Procedure: prepped, draped in sterile fashion, good wave-form was obtained, patient tolerated procedure well, no immediate complications, post procedure area cleaned, post procedure dressing applied KELY MI CRNA November 19, 2019 14:17
--- NOTE | 2019-11-19 14:17 | Occ Therapy Progress Note ---
Therapy Progress Note OT order received, chart reviewed. Pt. seen in ER and admitted this date to ICU. Pt. exhibiting severe anxiety with orders for restraints and sedation vacation. OT not appropriate on this date but will continue to follow pt. Thank you for this referral. 1417 Hold therapy this date. CHENG OVALLES OT November 19, 2019 14:17
--- NOTE | 2019-11-19 14:22 | Diagnostic Imaging Report ---
INDICATION: Intubation. Time of exam 2:17 PM Correlation is made with prior chest earlier same day. Heart remains enlarged. Endotracheal tube has been placed has the tip just above the shae approximately 1 cm. NG tube passes into the stomach. Bilateral infiltrates are again noted. There is some consolidation in the left base obscuring the left hemidiaphragm. No pneumothorax is seen. IMPRESSION: Endotracheal tube and nasogastric tube placement, as described. Dictated by: Dictated on workstation # [id number]
--- NOTE | 2019-11-19 14:27 | Physical Therapy Progress Note ---
Therapy Progress Note Orders received for PT, patient is intubated and sedated at this time. We will check patient status 11/20/19. JOAN LANCASTER PT November 19, 2019 14:27
--- NOTE | 2019-11-19 14:48 | NUR ---
"Received dietary consult regarding pt's vent status. Est. kcal needs: 0141-9389 kcal | 20-25 kcal/kg Est. Pro needs: 61-77 g Pro | 0.8-1.0 g Pro/kg If pt is to remain NPO for more than 3days, would recommend the following TF: Jevity 1.5 kcal at goal rate of 45ml/hr. Begin at 10ml/hr and increase by 10ml q6h as medically able and as tolerated. Monitor gastric residuals for tolerance. At goal rate, provides 1620 kcal (21 kcal/kg); 69 g Pro (0.9 g Pro/kg); and 820ml free water. Flush with 100ml H2O q4h for hydration status. With flushes, provides 1420ml free water. Will continue to follow and reassess as pt needs, intake, and status change. Chris Cadet MS, RD, LD [phone]"
[2019-11-19 15:14] LABS: ABG BASE EXCESS -7.1 MMOL/L (-2.5-2.5); ABG OXYGEN SATURATION 99 % (94-100); ABG PCO2 46 MMHG (35-45); ABG PO2 150 MMHG (79-93); ABG TCO2 20.5 MMOL/L (21.0-31.0)
[2019-11-19 15:17] LABS: ALLENS TEST POSITIVE
[2019-11-19 15:18] LABS: PATIENT TEMP 36.6; VENTILATOR YES
[2019-11-19 15:19] LABS: ABG PH 7.24 (7.37-7.43)
[2019-11-19] MEDS ORDERED: SODIUM BICARB 8.4% 50 MEQ/50 ML VIAL IV NR ×2 (15:45→16:15)
--- NOTE | 2019-11-19 15:48 | Diagnostic Imaging Report ---
INDICATION: Central line placement. TIME OF EXAM: 03:38 p.m. Correlation is made with prior chest from earlier same day. FINDINGS: ET tube and NG tube remain in place. A right IJ line has been placed and has the tip overlying the lower SVC. No pneumothorax is identified. Bilateral pulmonary infiltrates persist. IMPRESSION: Right IJ line placement. No pneumothorax is detected. Dictated by: Dictated on workstation # [id number]
[2019-11-19] MEDS: DOBUTamine DRIP 250 ML IV SCH (16:09)
[2019-11-19] MEDS: CATHETER FLUSH 10 ML SYR IV SCH ×2 (16:14→21:20)
--- NOTE | 2019-11-19 16:20 | NUR ---
LATE ENTRY: TIME LINE OF EVENTS PT TO FLOOR AT 1241 UPON PT ARRIVAL PT NOTED TO BE ASHEN IN COLOR AND SOA, PT ALERT AND ORIENTED PT TACHYPNIEC AND HEART RATE NOTED TO BE ELEVATED AT 125-135. DR ANDERSON NOTIFIED OF PT'S COLOR AND VS ORDERS RECEIVED TO NOTIFY DR GIRARD. DR GIRARD NOTIFIED AND ORDERS TO CONTACT E-ICU. EICU CONTACTED AND ORDERS TO START BIPAP RECEIVED. BIPAP STARTED AND ABG OBTAINED. PT AGREEABLE TO CRITICAL ABG RESULT RECEIVED DR ESPINOZA WITH E-ICU NOTIFIED. ORDERS RECEIVED TO INTUBATE PT. PT AGREEABLE TO INTUBATION STATES " DO WHATEVER YOU HAVE TO" THIS STATEMENT WITNESSED BY THIS HYDROPULPER OPERATOR AND 2 COWORKERS. Jessica GOMEZ RN AND Dann BECERRIL RN. 1350 3 VERSED GIVEN BY ANESTHESIA PROVIDER Romeo RAIN, 1353 120 PROPOFOL AND 80 SUCCINATE GIVEN BY ANESTHESIA 1355 PT INTUBATED #8 POSITIVE COLOR CHANGE 22 TEETH 1357 50 BARTOLO WASTED ALONG WITH 2 VERSED 1400 OG IN AND RESTRAINTS ORDERED AND ON 1408 ART LINE PLACED AND LEVOPHED STARTED AT 0.1 1412 CXR COMPLETED 1420 2ND IV LINE STARTED BY Sanjiv GOMEZ RN INTO RIGHT UPPER ARM 1430 DR BOYCE NOTIFIED OF ORDERS FOR CENTRAL LINE PLACEMENT 1505 CENTRAL LINE PLACED 1510 CXR ORDERED 1525 CRITICAL ABG RESULTS GIVEN TO DR ESPINOZA WITH E-ICU ORDERS RECEIVED TO GIVE 1 AMP BICARB AND INCREASE RR TO 20, RT NOTIFIED [address] REPORT GIVEN TO DR BOYCE AND ORDERS TO USE CENTRAL LINE OBTAINED. 1600 E-ICU NOTIFIED OF DECREASED BLOOD PRESSURE ORDERS TO GIVEN AN ADDITIONAL 1 AMP BICARB AND TO DECREASE PEEP TO 5. RT NOTIFIED OF VENT CHANGE ORDERS. Addendum: 11/19/19 at 1933 by PHILIPP LAROSE RN PT PLACED ON 2 LITERS PER NC SA02 CONTINUED TO DROP NOTED IN LOWER 80'S THEN PT PLACED ON HIGH FLOW AT 15L PRIOR TO BIPAP USE.
--- NOTE | 2019-11-19 16:22 | Consultation-Cardiology ---
HPI-Cardiology Cardiology Consultation: Date of Consultation 11/19/19 Date of Admission Attending Physician Nina Velasquez DO Admitting Physician [facility] Consulting Physician Josiah BARRAGAN MD HPI: Time Seen by a Provider: 11:00 Chief Complaint: Shortness of breath This is a 44-year-old gentleman who has previous history of severe LV systolic dysfunction with a previous echocardiogram showing an EF of 10-15 percent. He presents with significant shortness of breath and is in respiratory distress. He denies active smoking. To me he also denied active meth drug abuse but says that his has been giving him medications and he does not know what those medications are. He was also very anxious during my history and examination. Some chest discomfort but denied syncope, near-syncope, palpitations. No pertinent family history. He wants everything to be done. Review of Systems-Cardiology Review of Systems Constitutional: As described under HPI; No As described under HPI, No no symptoms reported, No chills, No fever, No lightheadedness Eyes: No As described under HPI, No no symptoms reported, No blindness, No blurred vision, No contact lenses, No drainage, No decreased acuity, No foreign body sensation, No pain, No vision change Ears/Nose/Throat: No As described under HPI, No no symptoms reported, No chronic hearing loss, No ear discharge, No ear pain, No nasal drainage, No ulcerations Respiratory: No no symptoms reported; As described under HPI; No As described under HPI, No cough; orthopnea, shortness of breath; No SOB with excertion Cardiovascular: No no symptoms reported; As described under HPI; No As described under HPI, No chest pain, No edema, No irregular heart rate, No lightheadedness, No palpitations Gastrointestinal: No no symptoms reported, No As described under HPI, No abdomen distended, No abdominal pain, No blood streaked bowels, No constipation, No diarrhea, No nausea, No vomiting, No stool coloration changes Genitourinary: No As described under HPI, No burning, No dysuria, No discharge, No frequency, No flank pain, No hematuria, No urgency Skin: No rash, No skin related problems, No ulcerations Psychiatric/Neurological: anxiety; No depression, No seizure, No focal weakness, No syncope Hematologic: No bleeding abnormalities All Other Systems Reviewed Negative Unless Noted: Yes NZR-Lootxy-Qanqlm Hx Patient Social History Alcohol Use: Denies Use Recreational Drug Use: No Drug of Choice: HX: METHAMPHETAMINES, THC. DENIES IV USE OR USE "FOR YEARS" PER PT 05/12/19 Type Used: Cigarettes 2nd Hand Smoke Exposure: Yes Recent Foreign Travel: No Recent Infectious Disease Expo: No Immunizations Up To Date Tetanus Booster (TDap): More than 5yrs Past Medical History PMH As described under Assessment. Allergies and Home Medications Allergies Coded Allergies: No Known Drug Allergies (Unverified , 04/18/19) Home Medications Acetaminophen 325 Mg Tablet, 650 MG PO Q8H PRN for PAIN-MILD (1-4), (Reported) Patient Home Medication List Home Medication List Reviewed: Yes Physical Exam-Cardiology Physical Exam Vital Signs/I&O 11/21/19 11/21/19 11/21/19 11/21/19 00:36 01:00 02:00 02:02 Pulse 115 115 115 115 Resp 26 23 B/P (MAP) 98/72 (81) 93/65 (74) 94/70 Pulse Ox 96 96 O2 Delivery Mechanical Ventilator Mechanical Ventilator O2 Flow Rate 21.00 21.00 11/21/19 11/21/19 11/21/19 11/21/19 02:02 02:14 02:53 02:56 Temp 38.6 38.6 Pulse 115 115 Resp 25 B/P (MAP) 94/70 Pulse Ox 96 O2 Delivery Mechanical Ventilator O2 Flow Rate 21.00 FiO2 21 11/21/19 11/21/19 11/21/19 11/21/19 03:00 03:40 04:00 04:00 Temp 38.2 Pulse 112 113 Resp 21 28 B/P (MAP) 109/80 (90) 96/67 (77) Pulse Ox 95 98 97 O2 Delivery Mechanical Ventilator Mechanical Ventilator Mechanical Ventilator Mechanical Ventilator O2 Flow Rate 21.00 21.00 21.00 FiO2 21 11/21/19 11/21/19 11/21/19 11/21/19 04:55 04:58 05:00 06:30 Temp 38.2 36.7 Pulse 106 106 Resp 28 B/P (MAP) 96/67 110/79 (89) Pulse Ox 97 O2 Delivery Mechanical Ventilator O2 Flow Rate 21.00 5/23/20 5/23/20 5/23/20 5/23/20 06:37 07:00 07:13 07:58 Temp 36.6 Pulse 112 111 111 Resp 21 22 B/P (MAP) 109/80 (90) Pulse Ox 97 97 O2 Delivery Mechanical Ventilator O2 Flow Rate 21.00 FiO2 21 11/21/19 11/21/19 11/21/19 11/21/19 08:00 08:00 09:00 09:57 Pulse 111 111 112 Resp 25 28 29 B/P (MAP) 102/72 (82) 99/74 (82) Pulse Ox 97 96 96 97 O2 Delivery Mechanical Ventilator Mechanical Ventilator Mechanical Ventilator O2 Flow Rate 21.00 21.00 FiO2 21 21 11/21/19 11/21/19 11/21/19 10:00 11:00 12:00 Temp 36.3 Pulse 111 115 Resp 32 21 B/P (MAP) 99/71 (80) 98/70 (79) Pulse Ox 95 97 O2 Delivery Mechanical Ventilator Mechanical Ventilator O2 Flow Rate 21.00 21.00 11/21/19 00:00 Intake Total 630 ml Output Total 1600 ml Balance -970 ml Capillary Refill : Less Than 3 Seconds Constitutional: appears stated age, AAO x 3, apparent distress, well-developed, well-nourished HEENT: PERRL; No discharge; hearing is well preserved, oral hygience is good; No ulceration, No xanthelasmas are seen Neck: No carotid bruit; carotid pulses are 2 + bilaterally Respiratory: respiratory distress, chest is bilaterally symmetric, other (Decreased air entry bilaterally) Cardiovascular: regular rate-rhythm, tachycardia, S1 and S2 Gastrointestinal: soft, audible bowel sounds; No spleenomegaly Rectal: deferred Extremities: normal range of motion, non-tender, normal inspection; No clubbing, No cyanosis, No no lower extremity edema bilateral, No significant edema Neurologic/Psychiatric: no motor/sensory deficits, alert, normal mood/affect, oriented x 3, power is 5/5 both on sides Skin: normal color, warm/dry; No rash, No ulcerations Data Review Labs Laboratory Tests 11/20/19 17:44: Glucometer 125H 11/20/19 22:58: Glucometer 121H 11/21/19 03:05: White Blood Count 15.2H, Red Blood Count 3.91L, Hemoglobin 11.8L, Hematocrit 36L , Mean Corpuscular Volume 93, Mean Corpuscular Hemoglobin 30, Mean Corpuscular Hemoglobin Concent 33, Red Cell Distribution Width 15.5H, Platelet Count 299, Mean Platelet Volume 9.0, Neutrophils (%) (Auto) 81H, Lymphocytes (%) (Auto) 9L, Monocytes (%) (Auto) 9, Eosinophils (%) (Auto) 0, Basophils (%) (Auto) 0, Neutrophils # (Auto) 12.3H, Lymphocytes # (Auto) 1.4, Monocytes # (Auto) 1.4H, Eosinophils # (Auto) 0.0, Basophils # (Auto) 0.1, Sodium Level 142, Potassium Level 4.2, Chloride Level 103, Carbon Dioxide Level 24, Anion Gap 15H, Blood Urea Nitrogen 47H, Creatinine 2.39H, Estimat Glomerular Filtration Rate 29, BUN/Creatinine Ratio 20, Glucose Level 123H, Calcium Level 8.3L, Phosphorus Level 5.6H, Magnesium Level 2.2 11/21/19 05:08: Blood Gas Puncture Site LEFT BRACHIAL, Blood Gas Patient Temperature 38.2, Arterial Blood pH 7.52H, Arterial Blood Partial Pressure CO2 30L, Arterial Blood Partial Pressure O2 82, Arterial Blood HCO3 24, Arterial Blood Total CO2 24.9, Arterial Blood Oxygen Saturation 96, Arterial Blood Base Excess 1.5, Abhinav Test POSITIVE, Blood Gas Ventilator Setting YES, Blood Gas Inspired Oxygen 11/21/19 09:55: Blood Gas Puncture Site LT BRACHIAL, Blood Gas Patient Temperature 36.6, Arterial Blood pH 7.52H, Arterial Blood Partial Pressure CO2 30L, Arterial Blood Partial Pressure O2 81, Arterial Blood HCO3 24, Arterial Blood Total CO2 25.1, Arterial Blood Oxygen Saturation 98, Arterial Blood Base Excess 1.3, Abhinav Test YES-POS, Blood Gas Ventilator Setting YES, Blood Gas Inspired Oxygen 11/21/19 11:32: Glucometer 120H Microbiology 11/19/19 MRSA Screen - Final, Complete MRSA not isolated 11/19/19 Blood Culture - Preliminary, Resulted No growth ECG Impression ECG Initial ECG Rhythm: S.Tach A/P-Cardiology Assessment/Admission Diagnosis Acute respiratory failure, Severe LV systolic dysfunction, dilated cardiomyopathy, Meth abuse, Possible pneumonia, Acute kidney injury, Positive D dimer, Type II myocardial infarction Plan Acute respiratory failure, likely due to acute systolic congestive heart failure however contribution from pneumonia cannot be ruled out. Patient is in acute respiratory distress and will likely require intubation. Discussed with Dr. Morris. Acute on chronic systolic congestive heart failure, Severe LV systolic dysfunction, dilated cardiomyopathy, borderline blood pressure. Elevated BNP. Chest x-ray and CT scan shows bilateral atypical pulmonary edema. Will give IV Lasix. Meth abuse, patient denies active meth use. However he says that his has been giving him some unknown medications. Unclear situation. Possible pneumonia, leukocytosis with left shift, Sepsis cannot be ruled out. Defer to the primary team. Acute kidney injury, we will continue to follow. Positive D dimer, CT chest did not show any PE. Type II myocardial infarction, likely due to acute systolic congestive heart failure. Complicated patient with numerous medical issues and guarded prognosis. Thank you for your consultation. Please call me if you have any questions. Estelle Barragan MD, FACP, FACC, FSCAI, FHRS, CCDS Interventional Cardiology Cardiac Electrophysiology Vascular Medicine and Endovascular Interventions Clinical Quality Measures AMI/AHF: ASA po Prior to arrival: Josiah Kevin MD November 19, 2019 16:21
[2019-11-19] MEDS ORDERED: EPINEPHrine INJECTION 1 MG/ML AMP ONE (16:25)
[2019-11-19] MEDS ORDERED: EPINEPHrine (OMNICELL DRIP KIT ONLY) 1 MG/ML AMP ONE (16:34)
[2019-11-19] MEDS: EPINEPHrine 1 MG INJECTION 2 MG in NS (IVPB) 248 ML IV SCH ×2 (16:47→20:52)
[2019-11-19] MEDS ORDERED: CALCIUM GLUC. 10% 4.65 MEQ/10 ML VIAL IV NR (17:15)
[2019-11-19] MEDS: FUROSEMIDE 40 MG/4 ML INJ (LASIX) IV SCH (17:43)
[2019-11-19 18:09] LABS: CALCIUM 7.4 MG/DL (8.5-10.1); CREATININE SERUM 1.89 MG/DL (0.60-1.30)
[2019-11-19 18:12] LABS: POTASSIUM 6.6 MMOL/L (3.6-5.0)
--- NOTE | 2019-11-19 18:12 | History & Physical-Hospitalist ---
History of Present Illness HPI/Chief Complaint CC: Cardiogenic shock HPI: This is a 44yoWM clinic patient of [facility] who was to have a pacemaker defib placed by Dr Barragan prior to COVID- pandemic who presented to the ER with AECHF and noted to have elevated wbc so placed on abx for possible PNA and placed in ICU for close monitoring. Dr Barragan was consulted. Patient declined quickly and decompensated and required intubation and now on 3 pressors. Hyperkalemia noted and creat 1.8 along with meth in his UDS. Patient not stable enough to consider transfer to higher level of care currently. EICU was very helpful in managing this critical illness and patient has a very poor prognosis currently. Exam Limitations: clinical condition Date Seen 11/19/19 Time Seen by a Provider: 18:00 Attending Physician Nina Velasquez DO [facility] Referring Physician Date of Admission November 19, 2019 at 11:29 Home Medications & Allergies Home Medications Reviewed patient Home Medication Reconciliation performed by pharmacy medication reconciliations electronic test technician and/or nursing. Patients Allergies have been reviewed. Allergies Allergies Coded Allergies No Known Drug Allergies ([id number]/19/19) Past Nfburcr-Fzgfnr-Doctot Hx Past Med/Social Hx: Reviewed Nursing Past Med/Soc Hx, Reviewed and Corrections made Patient Social History Marrital Status: Employed/Student: unemployed Alcohol Use: Denies Use Recreational Drug Use: No Drug of Choice: HX: METHAMPHETAMINES, THC. DENIES IV USE OR USE "FOR YEARS" PER PT 05/12/19 Former Smoker, Quit: Apr 09, 2019 Type Used: Cigarettes 2nd Hand Smoke Exposure: Yes Recent Foreign Travel: No Contact w/other who traveled: No Recent Hopitalizations: Yes Recent Infectious Disease Expo: No Immunizations Up To Date Tetanus Booster (TDap): More than 5yrs Past Medical History Surgeries: Appendectomy Cardiac: Cardiomyopathy, Heart Attack Neurological: Seizure Disorder History of Blood Disorders: No Family History Reviewed Nursing Family Hx CAD Under 55 Years Old Review of Systems Constitutional: see HPI Respiratory: cough, dyspnea on exertion Physical Exam Physical Exam Vital Signs Vital Signs - First Documented 11/19/19 11/19/19 11/19/19 07:50 12:37 14:17 Temp 37.0 Pulse 148 Resp 22 B/P (MAP) 124/87 (99) Pulse Ox 92 O2 Delivery Room Air O2 Flow Rate 2.00 FiO2 55 Capillary Refill : Less Than 3 Seconds Height, Weight, BMI Height: 5'" Weight: 140lbs. oz. 63.315570lt; 29.00 BMI Method:Stated General Appearance: No Apparent Distress, Chronically ill, Other (intubated) Respiratory: Decreased Breath Sounds, Wheezing Cardiovascular: Regular Rate, Rhythm Results Results/Procedures Labs Laboratory Tests 11/19/19 08:14 11/19/19 17:00 Patient resulted labs reviewed. Assessment/Plan Admission Diagnosis Assessment: Cardiogenic shock VDRF Cardiomyopathy Pacemaker required but too unstable currently Meth use complicating entire situation Hyperkalemia PNA ARF Plan: Vent management Cardiogenic shock management with pressors Monitor creat Poor prognosis Admission Status: Inpatient Order (span 2 midnights) Reason for Inpatient Admission: VDRF Diagnosis/Problems Diagnosis/Problems (1) Cardiogenic shock (2) Ventilator dependence (3) Methamphetamine abuse (4) CHF (congestive heart failure) Status: Chronic Qualifiers: Heart failure type: unspecified Heart failure chronicity: acute on chronic Qualified Codes: I50.9 - Heart failure, unspecified (5) Left lower lobe pneumonia Status: Acute Qualifiers: Pneumonia type: due to unspecified organism Qualified Codes: J18.1 - Lobar pneumonia, unspecified organism Clinical Quality Measures AMI/AHF: ASA po Prior to arrival: NINA Wills DO November 19, 2019 18:12
[2019-11-19] MEDS ORDERED: DEXTROSE 50% 50 ML (IMS) SYR IV NR (18:15)
[2019-11-19] MEDS ORDERED: inSUlin (REGULAR) HUMAN 1 UNIT/0.01 ML (CHARGE PER UNIT) IV NR (18:15)
[2019-11-19] MEDS ORDERED: SOD POLYSTERENE 15 GM/60 ML (KAYEXALATE) UNIT DOSE PO NR (19:00)
[2019-11-19] MEDS ORDERED: MIDAZOLAM 5 MG/5 ML (VERSED) VIAL IJ ONE (19:59)
[2019-11-19] MEDS ORDERED: SUCCINYLCHOLINE INJ 100 MG/5 ML SYR INJ ONE (19:59)
[2019-11-19] MEDS ORDERED: ROCURONIUM 10 MG/ML 5 ML SYRINGE IV ONE (19:59)
--- NOTE | 2019-11-19 19:59 | Consultation - Surgery ---
History of Present Illness History of Present Illness Patient Consulted On(issac/time) 11/19/19 15:48 Date Seen by Provider: November 19, 2019 Time Seen by Provider: 15:00 History of Present Illness Consult requested by Dr. Velasquez for central line placement Patient is a 44-year-old male who went into acute risk for failure and had to be intubated. Patient is unable to give any information due to being intubated. Patient with congestive heart failure and left lower lobe pneumonia who presented to the emergency department with left chest pain. Patient has been hypotensive and it has been requested a central line be placed. Allergies and Home Medications Allergies Coded Allergies: No Known Drug Allergies (Unverified , 04/18/19) Home Medications Aspirin 81 Mg Tab.chew, 81 MG PO DAILY@0900 Prescribed by: ELIJAH GAYTAN on 05/13/19 1301 Atorvastatin Calcium 40 Mg Tablet, 40 MG PO HS, (Reported) Furosemide 20 Mg Tablet, 20 MG PO DAILY, (Reported) Guaifenesin 100 Mg/5 Ml Liquid, 10 ML PO Q6H PRN for COUGH, (Reported) Hydrocodone Bit/Acetaminophen 1 Tab Tab, 1 EACH PO Q4-6HR PRN for PAIN-MODERATE Prescribed by: PATRICK CALI on 05/15/192103 Lisinopril 2.5 Mg Tablet, 2.5 MG PO DAILY, (Reported) Magnesium Oxide 400 Mg Tablet, 400 MG PO BID Prescribed by: PATRICK CALI on 05/15/192103 Metoprolol Tartrate 25 Mg Tablet, 6.25 MG PO BID, (Reported) TAKES 1/4 (25MG) TABLET Midodrine HCl 5 Mg Tablet, 5 MG PO TID, (Reported) Patient Home Medication List Home Medication List Reviewed: Yes Past Fwiomsj-Lcsubn-Olsihb Hx Patient Social History Alcohol Use: Denies Use Recreational Drug Use: No Drug of Choice: HX: METHAMPHETAMINES, THC. DENIES IV USE OR USE "FOR YEARS" PER PT 05/12/19 Former Smoker, Quit: Apr 09, 2019 Type Used: Cigarettes 2nd Hand Smoke Exposure: Yes Recent Foreign Travel: No Contact w/Someone Who Travel: No Recent Infectious Disease Expo: No Recent Hopitalizations: Yes Physical Abuse Screen: No Sexual Abuse: No Immunizations Up To Date Tetanus Booster (TDap): More than 5yrs Surgeries History of Surgeries: Yes Surgeries: Appendectomy Respiratory History of Respiratory Disorde: No Cardiovascular History of Cardiac Disorders: Yes (life vest) Cardiac Disorders: Cardiomyopathy, Heart Attack Neurological History of Neurological Disord: Yes (NO SEIZURE MEDICATIONS ( DEPAKOTE ) FOR 6 MONTHS, PER PT ON 04/18/19) Neurological Disorders: Seizure Disorder Genitourinary History of Genitourinary Disor: No Gastrointestinal History of Gastrointestinal Di: No Musculoskeletal History of Musculoskeletal Dis: No Endocrine History of Endocrine Disorders: No HEENT History of HEENT Disorders: Yes (POOR DENTITION) Cancer History of Cancer: No Psychosocial History of Psychiatric Problem: No (POLYSUBSTANCE ABUSE HISTORY) Integumentary History of Skin or Integumenta: No Blood Transfusions History of Blood Disorders: No Reviewed Nursing Assessment Reviewed/Agree w Nursing PMH: Yes Family Medical History Significant Family History: CAD Under 55 Years Old Review of Systems-General ROS-Unable to Obtain: Unable to provide due to being intubated and sedated. Physical Exam-General Problems Physical Exam Vital Signs Vital Signs - First Documented 11/19/19 11/19/19 11/19/19 07:50 12:37 14:17 Temp 37.0 Pulse 148 Resp 22 B/P (MAP) 124/87 (99) Pulse Ox 92 O2 Delivery Room Air O2 Flow Rate 2.00 FiO2 55 Capillary Refill : Less Than 3 Seconds General Appearance: other (Intubated and comfortable, diaphoretic) HEENT: PERRL/EOMI Neck: supple Respiratory: other (Intubated equal chest rise) Cardiovascular: regular rate, rhythm Gastrointestinal: soft, no organomegaly Rectal: deferred Extremities: normal inspection Neurologic/Psychiatric: No alert; other (Intubated sedated) Skin: diaphoresis Lymphatic: no adenopathy Data Review Labs Laboratory Tests 11/19/19 08:14: White Blood Count 16.6H, Red Blood Count 4.22L, Hemoglobin 12.8L, Hematocrit 39L , Mean Corpuscular Volume 92, Mean Corpuscular Hemoglobin 30, Mean Corpuscular Hemoglobin Concent 33, Red Cell Distribution Width 15.6H, Platelet Count 356, Mean Platelet Volume 8.9, Neutrophils (%) (Auto) 84H, Lymphocytes (%) (Auto) 7L, Monocytes (%) (Auto) 9, Eosinophils (%) (Auto) 1, Basophils (%) (Auto) 0, Neutrophils # (Auto) 13.9H, Lymphocytes # (Auto) 1.1, Monocytes # (Auto) 1.4H, Eosinophils # (Auto) 0.1, Basophils # (Auto) 0.1, Neutrophils % (Manual) 83, Lymphocytes % (Manual) 6, Monocytes % (Manual) 5, Eosinophils % (Manual) 0, Basophils % (Manual) 1, Band Neutrophils 5, Anisocytosis SLIGHT, Prothrombin Time 14.5, INR Comment 1.1, Activated Partial Thromboplast Time 34, D-Dimer 1.30H, Sodium Level 133L, Potassium Level 5.2H, Chloride Level 104, Carbon Dioxide Level 16L, Anion Gap 13, Blood Urea Nitrogen 31H, Creatinine 1.41H, Estimat Glomerular Filtration Rate 54, BUN/Creatinine Ratio 22, Glucose Level 145H, Calcium Level 8.6, Corrected Calcium 9.1, Magnesium Level 1.7, Total Bilirubin 0.6, Aspartate Amino Transf (AST/SGOT) 19, Alanine Aminotransferase (ALT/SGPT) 18, Alkaline Phosphatase 89, Myoglobin 60.9, Troponin I 0.144H, B- Type Natriuretic Peptide 1735.1H, Total Protein 6.8, Albumin 3.4 11/19/19 08:22: Urine Color YELLOW, Urine Clarity CLEAR, Urine pH 5.5, Urine Specific [place] >=1.030, Urine Protein 3+H, Urine Glucose (UA) NEGATIVE, Urine Ketones NEGATIVE, Urine Nitrite NEGATIVE, Urine Bilirubin NEGATIVE, Urine Urobilinogen 0.2, Urine Leukocyte Esterase NEGATIVE, Urine RBC (Auto) NEGATIVE, Urine RBC RARE, Urine WBC RARE, Urine Squamous Epithelial Cells RARE, Urine Crystals NONE, Urine Bacteria TRACE, Urine Casts NONE, Urine Mucus NEGATIVE, Urine Culture Indicated NO, Urine Opiates Screen NEGATIVE, Urine Oxycodone Screen POSITIVEH, Urine Methadone Screen NEGATIVE, Urine Propoxyphene Screen NEGATIVE, Urine Barbiturates Screen NEGATIVE, Ur Tricyclic Antidepressants Screen NEGATIVE, Urine Phencyclidine Screen NEGATIVE, Urine Amphetamines Screen POSITIVEH, Urine Methamphetamines Screen POSITIVEH, Urine Benzodiazepines Screen NEGATIVE, Urine Cocaine Screen NEGATIVE, Urine Cannabinoids Screen NEGATIVE 11/19/19 11:25: Lactic Acid Level 1.01 11/19/19 13:15: Blood Gas Puncture Site LEFT RADIAL, Blood Gas Patient Temperature 36.2, Arterial Blood pH 7.34*L, Arterial Blood Partial Pressure CO2 40, Arterial Blood Partial Pressure O2 57L, Arterial Blood HCO3 21L, Arterial Blood Total CO2 22.5, Arterial Blood Oxygen Saturation 86L, Arterial Blood Base Excess -3.7L, Abhinav Test YES-POS, Blood Gas Ventilator Setting NO, Blood Gas Inspired Oxygen 15 11/19/19 14:55: Glucometer 181H 11/19/19 15:04: Blood Gas Puncture Site LEFT RADIAL, Blood Gas Patient Temperature 36.6, Arterial Blood pH 7.24*L, Arterial Blood Partial Pressure CO2 46H, Arterial Blood Partial Pressure O2 150H, Arterial Blood HCO3 19L, Arterial Blood Total CO2 20.5L, Arterial Blood Oxygen Saturation 99, Arterial Blood Base Excess -7.1L , Abhinav Test POSITIVE, Blood Gas Ventilator Setting YES, Blood Gas Inspired Oxygen 55% 11/19/19 16:17: B-Type Natriuretic Peptide 2111.8H 11/19/19 17:00: Sodium Level 134L, Potassium Level 6.6#*H, Chloride Level 101, Carbon Dioxide Level 18L, Anion Gap 15H, Blood Urea Nitrogen 34H, Creatinine 1.89H, Estimat Glomerular Filtration Rate 39, BUN/Creatinine Ratio 18, Glucose Level 206H, Calcium Level 7.4L, Magnesium Level 2.0, Troponin I 0.182H Assessment/Plan Assessment/Plan Assessment/Plan Acute respiratory failure Hypertension Congestive heart failure Left lower lobe pneumonia Methamphetamine use Patient need for central line placement. For possible need of Levophed. Central line replaced. Chest x-ray post procedure. Continue medical management. Procedure: Right ultrasound-guided central line placement. Patient was prepped and draped in a sterile fashion. Timeout was performed. Using ultrasound right internal jugular vein was accessed dark nonpulsatile blood was withdrawn. Syringe was removed and wire was placed down the needle and the needle was removed. 11 blade scalpel was used to make a small skin incision at the insertion point. The dilator was then advanced over the guidewire and removed. The triple-lumen catheter was then inserted over the wire the wire was removed. The triple-lumen catheter was then secured in the usual fashion. All ports were accessed and flush without difficulty. The area was washed and dried and sterile bandage was applied. Chest x-ray pending. Clinical Quality Measures AMI/AHF: ASA po Prior to arrival: No DVT/VTE Risk/Contraindication: Risk Factor Score Per Nursin RFS Level Per Nursing on Admit: 4+=Very High MAO BOYCE DO November 19, 2019 19:59
[2019-11-19] MEDS: PROPOFOL DRIP (ICU) 100 ML IV SCH ×2 (20:02→23:09)
--- NOTE | 2019-11-19 20:45 | NUR ---
UPDATED PT ON PT STATUS.
[2019-11-19 22:31] LABS: POTASSIUM 4.3 MMOL/L (3.6-5.0)
[2019-11-19 22:32] LABS: CALCIUM 8.1 MG/DL (8.5-10.1)
[2019-11-19 22:36] LABS: CREATININE SERUM 1.96 MG/DL (0.60-1.30)
[2019-11-20] VITALS (30 sets, daily range): BP systolic 91–113; BP diastolic 63–81
[2019-11-20] MEDS: inSUlin ASPART (NovoLOG) 1 UNIT/0.01 ML (CHARGE PER UNIT) SC SCH ×5 (00:09→23:01)
[2019-11-20] MEDS: EPINEPHrine 1 MG INJECTION 2 MG in NS (IVPB) 248 ML IV SCH ×6 (01:18→22:12)
--- NOTE | 2019-11-20 01:30 | NUR ---
ART LINE NO LONGER READING. UNABLE TO PULL BLOOD BACK. ART LINE REMOVED.
[2019-11-20 04:05] LABS: ABG OXYGEN SATURATION 97 % (94-100); ABG PCO2 34 MMHG (35-45); ABG PH 7.48 (7.37-7.43); ABG PO2 78 MMHG (79-93); ABG TCO2 26.4 MMOL/L (21.0-31.0); BASOPHILS # (AUTO) 0.1 10^3/uL (0.0-0.1); BASOPHILS % (AUTO) 0 % (0-10); EOSINOPHILS % (AUTO) 0 % (0-10); HEMATOCRIT 36 % (40-54); HEMOGLOBIN 11.8 G/DL (13.3-17.7); LYMPHOCYTES # (AUTO) 2.1 X 10^3 (1.0-4.0); LYMPHOCYTES % (AUTO) 12 % (12-44); MEAN CORPUSCULAR HEMOGLOBIN 30 PG (25-34); MEAN CORPUSCULAR HGB CONC 33 G/DL (32-36); MEAN CORPUSCULAR VOLUME 92 FL (80-99); MEAN PLATELET VOLUME 8.9 FL (7.4-10.4); MONOCYTES # (AUTO) 1.7 X 10^3 (0.0-1.0); MONOCYTES % (AUTO) 10 % (0-12); NEUTROPHILS # (AUTO) 13.1 X 10^3 (1.8-7.8); NEUTROPHILS % (AUTO) 78 % (42-75); PLATELET COUNT 385 10^3/uL (130-400); RED CELL DISTRIBUTION WIDTH 15.2 % (10.0-14.5); WHITE BLOOD COUNT 16.9 10^3/uL (4.3-11.0)
[2019-11-20 04:07] LABS: ALLENS TEST POSITIVE; INSPIRED O2 21; PATIENT TEMP 36.8; VENTILATOR YES
[2019-11-20 04:17] LABS: POTASSIUM 5.1 MMOL/L (3.6-5.0)
[2019-11-20 04:19] LABS: CALCIUM 8.1 MG/DL (8.5-10.1)
[2019-11-20 04:22] LABS: BILIRUBIN,TOTAL 0.6 MG/DL (0.1-1.0)
[2019-11-20] MEDS: POTASSIUM CL 10MEQ/50ML IVPB 50 ML IV SCH (04:22)
[2019-11-20] MEDS: MAGNESIUM 1 GM/100 ML IVPB 100 ML IV SCH (04:23)
[2019-11-20] MEDS: KCL 20 MEQ TAB (K-DUR) PO SCH (04:23)
[2019-11-20 04:24] LABS: CREATININE SERUM 1.9 MG/DL (0.60-1.30); PHOSPHORUS 3.2 MG/DL (2.3-4.7)
[2019-11-20] MEDS ORDERED: EPINEPHrine (OMNICELL DRIP KIT ONLY) 1 MG/ML AMP ONE (05:39)
[2019-11-20] MEDS ORDERED: NS (IVPB) 250 ML ONE (05:39)
--- NOTE | 2019-11-20 06:11 | Progress Note - Hospitalist ---
Subjective HPI/CC On Admission Date Seen by Provider: November 20, 2019 Time Seen by Provider: 10:00 CC: Cardiogenic shock HPI: This is a 44yoWM clinic patient of [facility] who was to have a pacemaker defib placed by Dr Barragan prior to COVID-19 pandemic who presented to the ER with AECHF and noted to have elevated wbc so placed on abx for possible PNA and placed in ICU for close monitoring. Dr Barragan was consulted. Patient declined quickly and decompensated and required intubation and now on 3 pressors. Hyperkalemia noted and creat 1.8 along with meth in his UDS. Patient not stable enough to consider transfer to higher level of care currently. EICU was very helpful in managing this critical illness and patient has a very poor prognosis currently. Subjective/Events-last exam Patient still intubated Pressors now only 2 of the 3 he required last night Patient very labile with HR and BP Poor prognosis Hyperkalemia and creatinine reviewed Focused Exam Lactate Level 11/19/19 11:25: Lactic Acid Level 1.01 Objective Exam Vital Signs Vital Signs Date Time Temp Pulse Resp B/P (MAP) Pulse Ox O2 Delivery O2 Flow Rate FiO2 11/20/19 14:10 123 27 96 21 11/20/19 14:00 99/70 (80) Mechanical Ventilator 21.00 11/20/19 12:31 37.8 Capillary Refill : Less Than 3 Seconds General Appearance: No Apparent Distress, Chronically ill, Other (intubated) Respiratory: Decreased Breath Sounds, Wheezing Cardiovascular: Tachycardia Results/Procedures Lab Laboratory Tests 11/19/19 17:00 11/19/19 22:05 11/20/19 03:56 Patient resulted labs reviewed. Assessment/Plan Assessment and Plan Assess & Plan/Chief Complaint Assessment: Cardiogenic shock VDRF Cardiomyopathy Pacemaker required but too unstable currently Meth use complicating entire situation Hyperkalemia PNA ARF Plan: Vent management Cardiogenic shock management with pressors Monitor creat Poor prognosis Diagnosis/Problems Diagnosis/Problems (1) Cardiogenic shock (2) Ventilator dependence (3) Methamphetamine abuse (4) CHF (congestive heart failure) Status: Chronic Qualifiers: Heart failure type: unspecified Heart failure chronicity: acute on chronic Qualified Codes: I50.9 - Heart failure, unspecified (5) Left lower lobe pneumonia Status: Acute Qualifiers: Pneumonia type: due to unspecified organism Qualified Codes: J18.1 - Lobar pneumonia, unspecified organism Clinical Quality Measures AMI/AHF: ASA po Prior to arrival: No DVT/VTE Risk/Contraindication: Risk Factor Score Per Nursin RFS Level Per Nursing on Admit: 4+=Very High KRZYSZTOF ANDERSON DO November 20, 2019 06:11
[2019-11-20] MEDS: CATHETER FLUSH 10 ML SYR IV SCH ×3 (06:26→21:22)
--- NOTE | 2019-11-20 06:26 | NUR ---
UPDATED ON PT STATUS.
[2019-11-20] MEDS: FUROSEMIDE 40 MG/4 ML INJ (LASIX) IV SCH ×2 (07:37→17:08)
--- NOTE | 2019-11-20 07:40 | Diagnostic Imaging Report ---
EXAMINATION: Portable erect AP chest at 3:43 AM INDICATION: Pneumonia, respiratory distress The cardiomegaly noted on the prior exam of 11/19/2019 is again evident and no different. There still appears to be a prominent area of pneumonia/atelectasis in the left retrocardiac region. Patchy alveolar/interstitial infiltrates are also seen in the right lung. These may be somewhat less prominent than on the prior exam. The right lung is difficult to evaluate due to an overlying external cardiac monitoring electrode pad. The mediastinum is not widened. The osseous structures are intact. The supportive tubes and lines seen previously are again evident and no different. IMPRESSION: The appearance of the chest has improved somewhat as the right lung does seem slightly better aerated. A followup study would be recommended for continued evaluation. Dictated by: Dictated on workstation # [id number]
[2019-11-20] MEDS ORDERED: FUROSEMIDE 40 MG/4 ML INJ (LASIX) IVP ONE (07:45)
[2019-11-20] MEDS: PANTOPRAZOLE 40 MG (PROTONIX) VIAL IV SCH (08:01)
[2019-11-20] MEDS: ENOXAPARIN 40 MG/0.4 ML (LOVENOX) SYR SC SCH (08:01)
[2019-11-20] MEDS: AZITHROMYCIN 250 MG TAB (ZITHROMAX) PO SCH (08:01)
--- NOTE | 2019-11-20 08:13 | Physical Therapy Progress Note ---
Therapy Progress Note Patient currently sedated and intubated. PT will continue to monitor patient status and initiate treatment when medically stable and able to actively participate with skilled therapy. KAZ GELLER PT November 20, 2019 08:13
[2019-11-20] MEDS: DOBUTamine DRIP 250 ML IV SCH (08:15)
--- NOTE | 2019-11-20 08:28 | Occ Therapy Progress Note ---
Therapy Progress Note Pt currently intubated and sedated. Hold therapy at this time. Will continue to monitor pt status and initiate OT services when pt able to actively participate. KAREN VALENCIA OT November 20, 2019 08:28
[2019-11-20] MEDS: PROPOFOL DRIP (ICU) 100 ML IV SCH ×2 (08:37→17:08)
[2019-11-20] MEDS: cefTRIAXone 1,000 MG/SWFI 10 ML IV PUSH IV SCH ×2 (11:01)
--- NOTE | 2019-11-20 11:17 | NUR ---
DR BEDOLLA IN TO SEE PATIENT NEW VERBAL ORDERS RECEIVED TO FOR BNP. ORDERS ENTERED.
--- NOTE | 2019-11-20 11:30 | NUR ---
CM/SS follow with patient. This ss is unable to visit with patient due to patient being on vent and sedated.
--- NOTE | 2019-11-20 11:41 | NUR ---
PT'S TEMP NOTED AT 38.2 DR ANDERSON NOTIFIED NEW ORDERS RECEIVED.
[2019-11-20] MEDS ORDERED: ACETAMINOPHEN 650 MG SUPP (TYLENOL) ONE (11:43)
[2019-11-20] MEDS: ACETAMINOPHEN 650 MG SUPP (TYLENOL) PR PRN (11:57)
[2019-11-20] MEDS ORDERED: ACET325T38 PO (12:35)
--- NOTE | 2019-11-20 12:36 | NUR ---
UNABLE TO SPEAK WITH THE PT AT THIS TIME. I SPOKE WITH THE PATIENTS MOLLY AND SHE SAID THE PT HAS NOT TAKEN ANY MEDICATIONS IN OVER 3 MONTHS. SHE SAID THE ONLY THING HE TAKES IS TYLENOL PRN. I DID CALL [facility] AND DR. CHASE OFFICE AND GOT MED LISTS FOR WHAT HE SHOULD BE ON- I WILL ATTACH THEM TO HIS CHART FOR FUTURE REFERENCE
--- NOTE | 2019-11-20 12:44 | NUR ---
1210 DR BEDOLLA NOTIFIED OF BNP RESULTS, ORDERS RECEIVED TO CONTINUE THE LASIX 40MG IV BID.
--- NOTE | 2019-11-20 13:06 | NUR ---
UPDATED PT'S MOTHER ON PT'S CONDITION.
--- NOTE | 2019-11-20 13:22 | NUR ---
PHONED AND UPDATED ON PT'S CONDITION.
[2019-11-20] MEDS: NOREPINEPHRINE 4 MG/250 ML 250 ML IV SCH ×2 (16:04→23:17)
--- NOTE | 2019-11-20 18:31 | Cardiology Progress Note ---
Cardiology SOAP Progress Note Subjective: Events of overnight noted. Patient became hypotensive and in severe respiratory distress and was intubated. On pressors. Objective: I&O/Vital Signs 11/21/19 11/21/19 11/21/19 11/21/19 00:36 01:00 02:00 02:02 Pulse 115 115 115 115 Resp B/P (MAP) 98/72 (81) 93/65 (74) 94/70 Pulse Ox 96 96 O2 Delivery Mechanical Ventilator Mechanical Ventilator O2 Flow Rate 21.00 21.00 11/21/19 11/21/19 11/21/19 11/21/19 02:02 02:14 02:53 02:56 Temp 38.6 38.6 Pulse 115 115 Resp B/P (MAP) 94/70 Pulse Ox 96 O2 Delivery Mechanical Ventilator O2 Flow Rate 21.00 FiO2 21 11/21/19 11/21/19 11/21/19 11/21/19 03:00 03:40 04:00 04:00 Temp 38.2 Pulse 112 113 Resp B/P (MAP) 109/80 (90) 96/67 (77) Pulse Ox 95 98 97 O2 Delivery Mechanical Ventilator Mechanical Ventilator Mechanical Ventilator Mechanical Ventilator O2 Flow Rate 21.00 21.00 21.00 FiO2 21 11/21/19 11/21/19 11/21/19 11/21/19 04:55 04:58 05:00 06:30 Temp 38.2 36.7 Pulse 106 106 Resp B/P (MAP) 96/67 110/79 (89) Pulse Ox 97 O2 Delivery Mechanical Ventilator O2 Flow Rate 21.00 11/21/19 11/21/19 11/21/19 11/21/19 06:37 07:00 07:13 07:58 Temp 36.6 Pulse 112 111 111 Resp 22 B/P (MAP) 109/80 (90) Pulse Ox 97 97 O2 Delivery Mechanical Ventilator O2 Flow Rate 21.00 FiO2 21 11/21/19 11/21/19 11/21/19 11/21/19 08:00 08:00 09:00 09:57 Pulse 111 111 112 Resp 29 B/P (MAP) 102/72 (82) 99/74 (82) Pulse Ox 97 96 96 97 O2 Delivery Mechanical Ventilator Mechanical Ventilator Mechanical Ventilator O2 Flow Rate 21.00 21.00 FiO2 21 21 11/21/19 11/21/19 11/21/19 10:00 11:00 12:00 Temp 36.3 Pulse 111 115 Resp 32 21 B/P (MAP) 99/71 (80) 98/70 (79) Pulse Ox 95 97 O2 Delivery Mechanical Ventilator Mechanical Ventilator O2 Flow Rate 21.00 21.00 11/21/19 00:00 Intake Total 630 ml Output Total 1600 ml Balance -970 ml Weight (Pounds): 140 Weight (Calculated Kilograms): [id number] Constitutional: other (Intubated/ventilated) Respiratory: respiratory distress, chest is bilaterally symmetric, other (. Decreased air entry bilaterally) Cardiovascular: regular rate-rhythm, tachycardia, S1 and S2 Gastrointestional: soft, audible bowel sounds Extremities: normal range of motion, non-tender, normal inspection, no lower extremity edema bilateral Neurologic/Psychiatric: other (Intubated/ventilated) Skin: cool Results/Procedures: Labs Laboratory Tests 11/20/19 17:44: Glucometer 125H 11/20/19 22:58: Glucometer 121H 11/21/19 03:05: White Blood Count 15.2H, Red Blood Count 3.91L, Hemoglobin 11.8L, Hematocrit 36L , Mean Corpuscular Volume 93, Mean Corpuscular Hemoglobin 30, Mean Corpuscular Hemoglobin Concent 33, Red Cell Distribution Width 15.5H, Platelet Count 299, Mean Platelet Volume 9.0, Neutrophils (%) (Auto) 81H, Lymphocytes (%) (Auto) 9L, Monocytes (%) (Auto) 9, Eosinophils (%) (Auto) 0, Basophils (%) (Auto) 0, Neutrophils # (Auto) 12.3H, Lymphocytes # (Auto) 1.4, Monocytes # (Auto) 1.4H, Eosinophils # (Auto) 0.0, Basophils # (Auto) 0.1, Sodium Level 142, Potassium Level 4.2, Chloride Level 103, Carbon Dioxide Level 24, Anion Gap 15H, Blood Urea Nitrogen 47H, Creatinine 2.39H, Estimat Glomerular Filtration Rate 29, BUN/Creatinine Ratio 20, Glucose Level 123H, Calcium Level 8.3L, Phosphorus Level 5.6H, Magnesium Level 2.2 11/21/19 05:08: Blood Gas Puncture Site LEFT BRACHIAL, Blood Gas Patient Temperature 38.2, Arterial Blood pH 7.52H, Arterial Blood Partial Pressure CO2 30L, Arterial Blood Partial Pressure O2 82, Arterial Blood HCO3 24, Arterial Blood Total CO2 24.9, Arterial Blood Oxygen Saturation 96, Arterial Blood Base Excess 1.5, Abhinav Test POSITIVE, Blood Gas Ventilator Setting YES, Blood Gas Inspired Oxygen 11/21/19 09:55: Blood Gas Puncture Site LT BRACHIAL, Blood Gas Patient Temperature 36.6, Arterial Blood pH 7.52H, Arterial Blood Partial Pressure CO2 30L, Arterial Blood Partial Pressure O2 81, Arterial Blood HCO3 24, Arterial Blood Total CO2 25.1, A rterial Blood Oxygen Saturation 98, Arterial Blood Base Excess 1.3, Abhinav Test YES-POS, Blood Gas Ventilator Setting YES, Blood Gas Inspired Oxygen 11/21/19 11:32: Glucometer 120H Microbiology 11/19/19 MRSA Screen - Final, Complete MRSA not isolated 11/19/19 Blood Culture - Preliminary, Resulted No growth A/P: Assessment/Dx: Acute respiratory failure, Cardiogenic shock, Severe LV systolic dysfunction, dilated cardiomyopathy, Meth abuse, Possible pneumonia, sepsis, Acute kidney injury, Positive D dimer, Type II myocardial infarction Plan: Acute respiratory failure, likely due to acute systolic congestive heart failure however contribution from pneumonia cannot be ruled out. Intubated/ventilated. Cardiogenic shock, Acute on chronic systolic congestive heart failure, Severe LV systolic dysfunction, dilated cardiomyopathy - on 3 pressors and systolic blood pressure is around 98 mmHg. Even though borderline blood pressure on pressors, I will still give a dose of IV Lasix. Meth abuse, patient denied active meth use. However he says that his has been giving him some unknown medications. Unclear situation. Possible pneumonia, leukocytosis with left shift, Sepsis cannot be ruled out. Defer to the primary team. Acute kidney injury, we will continue to follow. Positive D dimer, CT chest in the ER did not show any PE. Type II myocardial infarction, likely due to acute systolic congestive heart failure. No surveyor's assistant over this long weekend available in house. EICU taking care of pressors and sedation. We discussed transferring the patient to another facility with surveyor's assistant available, however he was deemed too unstable for tra nsfer. We will wait for another 24 hours and reevaluate. Critically ill patient. Over 30 minutes were spent taking care of the patient. Thank you for your consultation. Please call me if you have any questions. Estelle Barragan MD, FACP, FACC, FSCAI, FHRS, CCDS Interventional Cardiology Cardiac Electrophysiology Vascular Medicine and Endovascular Interventions Focused Exam Lactate Level 11/19/19 11:25: Lactic Acid Level 1.01 Clinical Quality Measures AMI/AHF: ASA po Prior to arrival: Josiah Kevin MD November 20, 2019 18:31
[2019-11-21] VITALS (18 sets, daily range): BP systolic 93–110; BP diastolic 63–80
[2019-11-21] MEDS: PROPOFOL DRIP (ICU) 100 ML IV SCH ×2 (02:02→12:11)
[2019-11-21] MEDS: EPINEPHrine 1 MG INJECTION 2 MG in NS (IVPB) 248 ML IV SCH ×3 (02:51→11:57)
[2019-11-21] MEDS: ACETAMINOPHEN 650 MG SUPP (TYLENOL) PR PRN (02:56)
[2019-11-21 03:23] LABS: BASOPHILS # (AUTO) 0.1 10^3/uL (0.0-0.1); BASOPHILS % (AUTO) 0 % (0-10); EOSINOPHILS % (AUTO) 0 % (0-10); HEMATOCRIT 36 % (40-54); HEMOGLOBIN 11.8 G/DL (13.3-17.7); LYMPHOCYTES # (AUTO) 1.4 X 10^3 (1.0-4.0); LYMPHOCYTES % (AUTO) 9 % (12-44); MEAN CORPUSCULAR HEMOGLOBIN 30 PG (25-34); MEAN CORPUSCULAR HGB CONC 33 G/DL (32-36); MEAN CORPUSCULAR VOLUME 93 FL (80-99); MONOCYTES # (AUTO) 1.4 X 10^3 (0.0-1.0); MONOCYTES % (AUTO) 9 % (0-12); NEUTROPHILS # (AUTO) 12.3 X 10^3 (1.8-7.8); NEUTROPHILS % (AUTO) 81 % (42-75); PLATELET COUNT 299 10^3/uL (130-400); RED CELL DISTRIBUTION WIDTH 15.5 % (10.0-14.5); WHITE BLOOD COUNT 15.2 10^3/uL (4.3-11.0)
[2019-11-21 03:45] LABS: POTASSIUM 4.2 MMOL/L (3.6-5.0)
[2019-11-21 03:46] LABS: CALCIUM 8.3 MG/DL (8.5-10.1)
[2019-11-21 03:50] LABS: PHOSPHORUS 5.6 MG/DL (2.3-4.7)
[2019-11-21 03:51] LABS: CREATININE SERUM 2.39 MG/DL (0.60-1.30)
[2019-11-21 03:53] LABS: MAGNESIUM 2.2 MG/DL (1.6-2.4)
[2019-11-21] MEDS: CATHETER FLUSH 10 ML SYR IV SCH ×2 (04:55→14:14)
[2019-11-21] MEDS: DOBUTamine DRIP 250 ML IV SCH (04:55)
[2019-11-21] MEDS: KCL 20 MEQ TAB (K-DUR) PO SCH (04:56)
[2019-11-21] MEDS: MAGNESIUM 1 GM/100 ML IVPB 100 ML IV SCH (04:56)
[2019-11-21] MEDS: POTASSIUM CL 10MEQ/50ML IVPB 50 ML IV SCH (04:56)
[2019-11-21] MEDS: inSUlin ASPART (NovoLOG) 1 UNIT/0.01 ML (CHARGE PER UNIT) SC SCH ×2 (04:56→13:46)
[2019-11-21 05:16] LABS: ABG BASE EXCESS 1.5 MMOL/L (-2.5-2.5); ABG OXYGEN SATURATION 96 % (94-100); ABG PCO2 30 MMHG (35-45); ABG PH 7.52 (7.37-7.43); ABG PO2 82 MMHG (79-93); ABG TCO2 24.9 MMOL/L (21.0-31.0)
[2019-11-21 05:17] LABS: ALLENS TEST POSITIVE; INSPIRED O2 21; PATIENT TEMP 38.2; VENTILATOR YES
--- NOTE | 2019-11-21 08:15 | Diagnostic Imaging Report ---
EXAMINATION: Chest 1 view INDICATION: Acute heart failure. Pneumonia. Intubated. COMPARISON: Chest radiograph on 11/20/2019. FINDINGS: Stable configuration of the endotracheal tube, enteric tube, and right internal jugular central line. Stable low lung volumes. The cardiac silhouette remains prominent. There is stable central pulmonary vascular congestion with prominent interstitial markings in the perihilar regions. No focal consolidation. No large pleural effusion or pneumothorax. No acute osseous abnormalities. IMPRESSION: 1. Unchanged cardiomegaly with central pulmonary vascular congestion and likely interstitial edema. A component of infection may also be present. 2. Stable support devices. Dictated by: Dictated on workstation # [id number]
[2019-11-21] MEDS: PANTOPRAZOLE 40 MG (PROTONIX) VIAL IV SCH (08:45)
[2019-11-21] MEDS: AZITHROMYCIN 250 MG TAB (ZITHROMAX) PO SCH (08:45)
[2019-11-21] MEDS: ENOXAPARIN 40 MG/0.4 ML (LOVENOX) SYR SC SCH (08:45)
--- NOTE | 2019-11-21 10:00 | NUR ---
Pt called et updated on pt condition. upset that she cannot be at bedside et began yelling at this RN. expressed that she feels that the patient's condition qualifies as "end of life" care and she should be able to visit the hospital under these conditions. This RN attempted to explain to the that while the patient is critical he is stable at this time. stated, "I am going to call my admitted attorneys" and hung up the phone. Dr. Coyle et [place] sup notified.
[2019-11-21 10:03] LABS: ABG BASE EXCESS 1.3 MMOL/L (-2.5-2.5); ABG OXYGEN SATURATION 98 % (94-100); ABG PCO2 30 MMHG (35-45); ABG PH 7.52 (7.37-7.43); ABG PO2 81 MMHG (79-93); ABG TCO2 25.1 MMOL/L (21.0-31.0)
[2019-11-21 10:08] LABS: ALLENS TEST YES-POS; INSPIRED O2 21; PATIENT TEMP 36.6; VENTILATOR YES
--- NOTE | 2019-11-21 10:37 | Physical Therapy Progress Note ---
Therapy Progress Note Pt remains intubated and sedated. PT will eval when appropriate. FREDRICK DUNCAN DPT November 21, 2019 10:37
[2019-11-21] MEDS: FUROSEMIDE 40 MG/4 ML INJ (LASIX) IV SCH (11:57)
[2019-11-21] MEDS: NOREPINEPHRINE 4 MG/250 ML 250 ML IV SCH (11:57)
[2019-11-21] MEDS: cefTRIAXone 1,000 MG/SWFI 10 ML IV PUSH IV SCH ×2 (11:57)
--- NOTE | 2019-11-21 12:00 | NUR ---
Dr. Coyle called et spoke with
[2019-11-21 12:30] LABS: ABG BASE EXCESS 2.1 MMOL/L (-2.5-2.5); ABG OXYGEN SATURATION 95 % (94-100); ABG PCO2 32 MMHG (35-45); ABG PH 7.51 (7.37-7.43); ABG PO2 74 MMHG (79-93); ABG TCO2 26.1 MMOL/L (21.0-31.0)
[2019-11-21 12:32] LABS: ALLENS TEST YES-POS; INSPIRED O2 21; PATIENT TEMP 36.8; VENTILATOR YES
--- NOTE | 2019-11-21 12:33 | Cardiology Progress Note ---
Cardiology SOAP Progress Note Subjective: Intubated/ventilated. Currently on 2 pressors. Oxygenation status better than yesterday. Objective: I&O/Vital Signs 11/21/19 11/21/19 11/21/19 11/21/19 00:36 01:00 02:00 02:02 Pulse 115 115 115 115 Resp B/P (MAP) 98/72 (81) 93/65 (74) 94/70 Pulse Ox 96 96 O2 Delivery Mechanical Ventilator Mechanical Ventilator O2 Flow Rate 21.00 21.00 11/21/19 11/21/19 11/21/19 11/21/19 02:02 02:14 02:53 02:56 Temp 38.6 38.6 Pulse 115 115 Resp B/P (MAP) 94/70 Pulse Ox 96 O2 Delivery Mechanical Ventilator O2 Flow Rate 21.00 FiO2 21 11/21/19 11/21/19 11/21/19 11/21/19 03:00 03:40 04:00 04:00 Temp 38.2 Pulse 112 113 Resp B/P (MAP) 109/80 (90) 96/67 (77) Pulse Ox 95 98 97 O2 Delivery Mechanical Ventilator Mechanical Ventilator Mechanical Ventilator Mechanical Ventilator O2 Flow Rate 21.00 21.00 21.00 FiO2 21 11/21/19 11/21/19 11/21/19 11/21/19 04:55 04:58 05:00 06:30 Temp 38.2 36.7 Pulse 106 106 Resp B/P (MAP) 96/67 110/79 (89) Pulse Ox 97 O2 Delivery Mechanical Ventilator O2 Flow Rate 21.00 11/21/19 11/21/19 11/21/19 11/21/19 06:37 07:00 07:13 07:58 Temp 36.6 Pulse 112 111 111 Resp B/P (MAP) 109/80 (90) Pulse Ox 97 97 O2 Delivery Mechanical Ventilator O2 Flow Rate 21.00 FiO2 21 11/21/19 11/21/19 11/21/19 11/21/19 08:00 08:00 09:00 09:57 Pulse 111 111 112 Resp 29 B/P (MAP) 102/72 (82) 99/74 (82) Pulse Ox 97 96 96 97 O2 Delivery Mechanical Ventilator Mechanical Ventilator Mechanical Ventilator O2 Flow Rate 21.00 21.00 FiO2 21 21 11/21/19 11/21/19 11/21/19 10:00 11:00 12:00 Temp 36.3 Pulse 111 115 Resp 32 21 B/P (MAP) 99/71 (80) 98/70 (79) Pulse Ox 95 97 O2 Delivery Mechanical Ventilator Mechanical Ventilator O2 Flow Rate 21.00 21.00 11/21/19 00:00 Intake Total 630 ml Output Total 1600 ml Balance -970 ml Weight (Pounds): 140 Weight (Calculated Kilograms): 63.868001 Constitutional: other (Intubated/ventilated) Respiratory: respiratory distress, chest is bilaterally symmetric, other (. Decreased air entry bilaterally) Cardiovascular: regular rate-rhythm, tachycardia, S1 and S2 Gastrointestional: soft, audible bowel sounds Extremities: normal range of motion, non-tender, normal inspection, no lower extremity edema bilateral Neurologic/Psychiatric: other (Intubated/ventilated) Skin: cool Results/Procedures: Labs Laboratory Tests 11/20/19 17:44: Glucometer 125H 11/20/19 22:58: Glucometer 121H 11/21/19 03:05: White Blood Count 15.2H, Red Blood Count 3.91L, Hemoglobin 11.8L, Hematocrit 36L , Mean Corpuscular Volume 93, Mean Corpuscular Hemoglobin 30, Mean Corpuscular Hemoglobin Concent 33, Red Cell Distribution Width 15.5H, Platelet Count 299, Mean Platelet Volume 9.0, Neutrophils (%) (Auto) 81H, Lymphocytes (%) (Auto) 9L, Monocytes (%) (Auto) 9, Eosinophils (%) (Auto) 0, Basophils (%) (Auto) 0, Neutrophils # (Auto) 12.3H, Lymphocytes # (Auto) 1.4, Monocytes # (Auto) 1.4H, Eosinophils # (Auto) 0.0, Basophils # (Auto) 0.1, Sodium Level 142, Potassium Level 4.2, Chloride Level 103, Carbon Dioxide Level 24, Anion Gap 15H, Blood Urea Nitrogen 47H, Creatinine 2.39H, Estimat Glomerular Filtration Rate 29, BUN/Creatinine Ratio 20, Glucose Level 123H, Calcium Level 8.3L, Phosphorus Level 5.6H, Magnesium Level 2.2 11/21/19 05:08: Blood Gas Puncture Site LEFT BRACHIAL, Blood Gas Patient Temperature 38.2, Arterial Blood pH 7.52H, Arterial Blood Partial Pressure CO2 30L, Arterial Blood Partial Pressure O2 82, Arterial Blood HCO3 24, Arterial Blood Total CO2 24.9, Arterial Blood Oxygen Saturation 96, Arterial Blood Base Excess 1.5, Abhinav Test POSITIVE, Blood Gas Ventilator Setting YES, Blood Gas Inspired Oxygen 11/21/19 09:55: Blood Gas Puncture Site LT BRACHIAL, Blood Gas Patient Temperature 36.6, Arterial Blood pH 7.52H, Arterial Blood Partial Pressure CO2 30L, Arterial Blood Partial Pressure O2 81, Arterial Blood HCO3 24, Arterial Blood Total CO2 25.1, Arterial Blood Oxygen Saturation 98, Arterial Blood Base Excess 1.3, Abhinav Test YES-POS, Blood Gas Ventilator Setting YES, Blood Gas Inspired Oxygen 11/21/19 11:32: Glucometer 120H 11/21/19 12:05: Microbiology 11/19/19 MRSA Screen - Final, Complete MRSA not isolated 11/19/19 Blood Culture - Preliminary, Resulted No growth A/P: Assessment/Dx: Acute respiratory failure, Cardiogenic shock, Severe LV systolic dysfunction, dilated cardiomyopathy, Meth abuse, Possible pneumonia, sepsis, Acute kidney injury, Positive D dimer, Type II myocardial infarction Plan: Acute respiratory failure, likely due to acute systolic congestive heart failure however contribution from pneumonia cannot be ruled out. Intubated/ventilated. Oxygenation status better than yesterday. On Precedex and propofol. Cardiogenic shock, Acute on chronic systolic congestive heart failure, Severe LV systolic dysfunction, dilated cardiomyopathy - today the patient is on 2 pressors. Systolic blood pressure of 110 mmHg. Kidney function is mildly worse, therefore I have held her Lasix this morning. Patient is more stable today. Good urine output in the last 24-48 hours. Meth abuse, patient denied active meth use. However he says that his has been giving him some unknown medications. Unclear situation. Possible pneumonia, leukocytosis with left shift, Sepsis cannot be ruled out. Defer to the primary team. Acute kidney injury, we will continue to follow. Positive D dimer, CT chest in the ER did not show any PE. Type II myocardial infarction, likely due to acute systolic congestive heart failure. No unit assembler over this long weekend available in house. EICU taking care of pressors and sedation. We discussed yesterday about transferring the patient to another facility with unit assembler available, however he was deemed too unstable for transfer. However today the patient is more stable. He is on 2 pressors and his respiratory status is also better. Therefore I have spoken to Dr. Coyle, the primary team and the RN and we have decided to transfer the patient to another facility with unit assembler available. I have called [facility] and Dr. Robles has accepted the patient to transfer to [facility] ICU. Critically ill patient. Over 30 minutes were spent taking care of the patient. Thank you for your consultation. Please call me if you have any questions. Estelle Barragan MD, FACP, FACC, FSCAI, FHRS, CCDS Interventional Cardiology Cardiac Electrophysiology Vascular Medicine and Endovascular Interventions Focused Exam Lactate Level 11/19/19 11:25: Lactic Acid Level 1.01 Clinical Quality Measures AMI/AHF: ASA po Prior to arrival: Josiah Kevin MD November 21, 2019 12:33
--- NOTE | 2019-11-21 12:50 | Discharge Summary ---
Diagnosis/Chief Complaint Date of Admission November 19, 2019 at 11:29 Date of Discharge Discharge Date: November 21, 2019 Admission Diagnosis Assessment: Cardiogenic shock VDRF Cardiomyopathy Pacemaker required but too unstable currently Meth use complicating entire situation Hyperkalemia PNA ARF Plan: Vent management Cardiogenic shock management with pressors Monitor creat Poor prognosis [facility] Discharge Diagnosis (1) Cardiogenic shock (2) Ventilator dependence (3) Methamphetamine abuse (4) CHF (congestive heart failure) Status: Chronic (5) Left lower lobe pneumonia Status: Acute Discharge Summary Discharge Physical Exam Allergies: Coded Allergies: No Known Drug Allergies (Unverified , 04/18/19) Vitals & I&Os Vital Signs Date Time Temp Pulse Resp B/P (MAP) Pulse Ox O2 Delivery O2 Flow Rate FiO2 11/21/19 12:12 115 98/70 11/21/19 12:00 36.3 11/21/19 12:00 32 94 Mechanical Ventilator 21.00 11/21/19 09:57 21 General Appearance: Chronically ill, Other (Sedated on mechanical ventilation) Respiratory: Other (Chest clear anteriorly) Cardiovascular: Tachycardia (Summation gallop noted no murmurs heard over room noise and mechanical ventilation) Hospital Course Was the Problem List Reviewed?: Yes Seen and evaluated. IV, labs, EKG and chest x-ray ordered. ASA 324 mg by mouth ordered. Ativan 0.5 mg IV ordered. Monitor patient. 1115: Patient did receive CT angiogram of the chest due to elevated d-dimer and those results are noted. Lasix 40 mg IV given after 500 mL bolus of normal saline to clear contrast and to begin to treat heart failure. Findings most consistent with heart failure alt anastacia patient does have elevated white count. I did discuss with him regarding methamphetamine use and he is unsure how he could be positive for that somebody may have given him something. He is adamant that he is not using any more. Does admit to taking family members Percocet for pain one tablet only. Patient states he really wants to get the pacemaker. He is thinking agreeable to admission. I did discuss the case with Dr. Barragan, patient's primary bath tester. He will see the patient in the emergency department. I did discuss the case with Dr. Velasquez, on-call for [facility] and she accepts patient for admission. After discussing all the results, we will go ahead and initiate blood cultures and lactic acid to ensure that there is not an underlying pneumonia or bacterial illness especially in light that he may be getting a pacemaker. Rocephin and Zithromax protocol initiated afterwards for possible pneumonia. All findings concerns were discussed with the patient who agrees with the plan. 1119: Joselito loaiza here evaluating patient. Patient's respiratory status deteriorated requiring mechanical ventilation. Hypotension ensued and initially the patient was on 3 pressors for support norepinephrine dobutamine and I believe epinephrine. He required Precedex and low-dose diprovan for agitation. CT angiography on admission revealed no evidence for pulmonary embolism but did reveal some peripheral groundglass opacities most likely due to pulmonary edema with pulmonary vascular congestion although infection could not be ruled out. Antibiotics were initiated as his white count was elevated and his second day had a maximum temperature of 38.1. Previous baseline creatinine in the past year. Be around 1.6 on presentation he was in the 1.8 range and this morning was up to 2.4. With Lasix and IV pressor supports oxygen status improved significantly he's down to FiO2 reportedly of 21 percent and I have decreased as rest for a rate due to respiratory alkalosis. We do not have an photographic enlarger operator on staff this weekend and his current pressors managed by eICU are currently epinephrine and 0.2 mcg/kg/m and dobutamine 3 mg/kg/m not a common combination. I discussed with the need for higher level of service and she ultimately agreed to transfer to [facility] who is accepted the patient. She is stated that his previous wishes had been for comfort care and that he had stopped his medication wanting nature to take its course several months ago. Upon his arrival to our emergency room however if in a panic state he told staff that he wished everything be done including mechanical ventilation. He also thought that his was trying to poison him heard second hand through nurse. I told the Handy suspect that this is likely delirium due to his severe medical illness we're obligated to take him at his most recent word which means keeping him on the ventilator with ultimate transfer to [facility]. While it is unlikely considering that he was febrile and the aforementioned CT findings COVID testing should be considered. Labs (last 24 hrs) Laboratory Tests 11/20/19 17:44: Glucometer 125H 11/20/19 22:58: Glucometer 121H 11/21/19 03:05: White Blood Count 15.2H, Red Blood Count 3.91L, Hemoglobin 11.8L, Hematocrit 36L , Mean Corpuscular Volume 93, Mean Corpuscular Hemoglobin 30, Mean Corpuscular Hemoglobin Concent 33, Red Cell Distribution Width 15.5H, Platelet Count 299, Mean Platelet Volume 9.0, Neutrophils (%) (Auto) 81H, Lymphocytes (%) (Auto) 9L, Monocytes (%) (Auto) 9, Eosinophils (%) (Auto) 0, Basophils (%) (Auto) 0, Neutrophils # (Auto) 12.3H, Lymphocytes # (Auto) 1.4, Monocytes # (Auto) 1.4H, Eosinophils # (Auto) 0.0, Basophils # (Auto) 0.1, Sodium Level 142, Potassium Level 4.2, Chloride Level 103, Carbon Dioxide Level 24, Anion Gap 15H, Blood Urea Nitrogen 47H, Creatinine 2.39H, Estimat Glomerular Filtration Rate 29, BUN/Creatinine Ratio 20, Glucose Level 123H, Calcium Level 8.3L, Phosphorus Level 5.6H, Magnesium Level 2.2 11/21/19 05:08: Blood Gas Puncture Site LEFT BRACHIAL, Blood Gas Patient Temperature 38.2, Arterial Blood pH 7.52H, Arterial Blood Partial Pressure CO2 30L, Arterial Blood Partial Pressure O2 82, Arterial Blood HCO3 24, Arterial Blood Total CO2 24.9, Arterial Blood Oxygen Saturation 96, Arterial Blood Base Excess 1.5, Abhinav Test POSITIVE, Blood Gas Ventilator Setting YES, Blood Gas Inspired Oxygen 11/21/19 09:55: Blood Gas Puncture Site LT BRACHIAL, Blood Gas Patient Temperature 36.6, Arterial Blood pH 7.52H, Arterial Blood Partial Pressure CO2 30L, Arterial Blood Partial Pressure O2 81, Arterial Blood HCO3 24, Arterial Blood Total CO2 25.1, Arterial Blood Oxygen Saturation 98, Arterial Blood Base Excess 1.3, Abhinav Test YES-POS, Blood Gas Ventilator Setting YES, Blood Gas Inspired Oxygen 21 11/21/19 11:32: Glucometer 120H 11/21/19 12:05: Blood Gas Puncture Site LT BRACHIAL, Blood Gas Patient Temperature 36.8, Arterial Blood pH 7.51H, Arterial Blood Partial Pressure CO2 32L, Arterial Blood Partial Pressure O2 74L, Arterial Blood HCO3 25, Arterial Blood Total CO2 26.1, Arterial Blood Oxygen Saturation 95, Arterial Blood Base Excess 2.1, Abhinav Test YES-POS, Blood Gas Ventilator Setting YES, Blood Gas Inspired Oxygen 21 Microbiology 11/19/19 MRSA Screen - Final, Complete MRSA not isolated 11/19/19 Blood Culture - Preliminary, Resulted No growth Patient resulted labs reviewed. Pending Labs Laboratory Tests 11/21/19 05:08: Blood Gas Puncture Site LEFT BRACHIAL, Blood Gas Patient Temperature 38.2, Arterial Blood pH 7.52, Arterial Blood Partial Pressure CO2 30, Arterial Blood Partial Pressure O2 82, Arterial Blood HCO3 24, Arterial Blood Total CO2 24.9, Arterial Blood Oxygen Saturation 96, Arterial Blood Base Excess 1.5, Abhinav Test POSITIVE, Blood Gas Ventilator Setting YES, Blood Gas Inspired Oxygen 21 11/21/19 09:55: Blood Gas Puncture Site LT BRACHIAL, Blood Gas Patient Temperature 36.6, Arterial Blood pH 7.52, Arterial Blood Partial Pressure CO2 30, Arterial Blood Partial Pressure O2 81, Arterial Blood HCO3 24, Arterial Blood Total CO2 25.1, Arterial Blood Oxygen Saturation 98, Arterial Blood Base Excess 1.3, Abhinav Test YES-POS, Blood Gas Ventilator Setting YES, Blood Gas Inspired Oxygen 21 11/21/19 11:32: Glucometer 120 11/21/19 12:05: Blood Gas Puncture Site LT BRACHIAL, Blood Gas Patient Temperature 36.8, Arterial Blood pH 7.51, Arterial Blood Partial Pressure CO2 32, Arterial Blood Partial Pressure O2 74, Arterial Blood HCO3 25, Arterial Blood Total CO2 26.1, Arterial Blood Oxygen Saturation 95, Arterial Blood Base Excess 2.1, Abhinav Test YES-POS, Blood Gas Ventilator Setting YES, Blood Gas Inspired Oxygen 21 Discussion & Recommendations Discharge Planning: >30 minutes discharge planning Discharge Home Medications: Active Scripts Active Reported Tylenol (Acetaminophen) 325 Mg Tablet 650 Mg PO Q8H PRN Instructions to patient/family Please see electronic discharge instructions given to patient. Clinical Quality Measures AMI/AHF: ASA po Prior to arrival: No DVT/VTE Risk/Contraindication: Risk Factor Score Per Nursin RFS Level Per Nursing on Admit: 4+=Very High Problem Qualifiers (1) CHF (congestive heart failure): Heart failure type: unspecified Heart failure chronicity: acute on chronic Qualified Codes: I50.9 - Heart failure, unspecified (2) Left lower lobe pneumonia: Pneumonia type: due to unspecified organism Qualified Codes: J18.1 - Lobar pneumonia, unspecified organism ESTEFANIA GRANT MD November 21, 2019 12:50
--- NOTE | 2019-11-21 13:05 | NUR ---
Called et gave report to KARINA Ruiz at [facility]
--- NOTE | 2019-11-21 13:25 | NUR ---
This RN et Eli Cole RN called et obtained consent to transfer pt to [facility]. requesting pt's belongings. informed that this RN will put the bag of belongings in the pt's room at the ER entrance and she can come and pick them up. agreed et stated she will come and get them today.
--- NOTE | 2019-11-21 13:30 | NUR ---
[facility] called et notified of need for transfer
--- NOTE | 2019-11-21 15:30 | NUR ---
[facility] here to get pt for transfer, report given
--- NOTE | 2019-11-24 14:21 | Physician Query Clarification ---
PQ-Uncertain Diagnosis Admission/Discharge Admission Date: November 19, 2019 at 11:29 Discharge Date: November 21, 2019 at 15:36 The medical record reflects the following clinical scenario: History/Risk Factors: cardiogenic shock, acute on chronic systolic CHF, pneumonia, acute respiratory failure Clinical Findings: T 37.0, P 148, R 22, WBC 16.9, Lactic acid 1.01 Treatment: IV Ceftriaxone, IV Azithromycin Question: Is Sepsis a clinically valid diagnosis? Sepsis was documented in the Dr. Barragan's consult as sepsis can not be ruled out with no further documentation in the medical record. Please document a response in Progress Note or Discharge Summary. 1. Yes, clinically valid, condition resolved. 2. No, condition ruled out. 3. Other, with explanation of clinical findings. 4. Undetermined, no explanation for clinical findings. PHYSICIAN RESPONSE Diagnosis clinically valid: No, conditon ruled out Please remember a lack of response to the above will prompt a phone page by CDI/Coding staff. In responding to this query, please exercise your independent professional judgment. The purpose of this communication is to more accurately reflect the complexity of your patients condition. The fact that a question is asked does not imply that any particular answer is desired or expected. Thank you for your timely response to this clarification. Requestors name: Veronica THIS PHYSICIAN QUERY FORM IS A PERMANENT PART OF THE MEDICAL RECORD VERONICA FRYE November 24, 2019 14:21 ESTEFANIA GRANT MD November 27, 2019 10:49
== END 2019-11-21 15:36 | disposition short-term general hospital (02) | DRG 208 ==
LOC: EDUNIT# 07:47 → ER 07:49 → CSD 11:29 → ICU 12:13
PROVIDERS: ADMIT Internal Medicine; ATTEND Internal Medicine
PROC: 5A1945Z Respiratory Ventilation, 24-96 Consecutive Hours (ICD-10-PCS; principal; 2019-11-19)
PROC: 0BH17EZ Insertion of Endotracheal Airway into Trachea, Via Natural or Artificial Opening (ICD-10-PCS; 2019-11-19)
DX: J96.00 Acute respiratory failure, unspecified whether with hypoxia or hypercapnia (principal); I11.0 Hypertensive heart disease with heart failure; I50.23 Acute on chronic systolic (congestive) heart failure; R57.0 Cardiogenic shock; J18.9 Pneumonia, unspecified organism; I42.9 Cardiomyopathy, unspecified; N17.9 Acute kidney failure, unspecified; I21.A1 Myocardial infarction type 2; F15.10 Other stimulant abuse, uncomplicated; F41.9 Anxiety disorder, unspecified; E87.5 Hyperkalemia; G40.909 Epilepsy, unspecified, not intractable, without status epilepticus; I25.2 Old myocardial infarction; Z87.891 Personal history of nicotine dependence
CPT/HCPCS: 36415; 36600; 71045; 71275; 80048; 80053; 80061; 80306; 81000; 82805; 82962; 83605; 83735; 83874; 83880; 84100; 84484; 85007; 85025; 85027; 85379; 85610; 85730; 87040; 87070; 87081; 87205; 93005; 93041; 93306; 94002; 94003; 94660; 94799; 96361; 96365; 96375; 96376